=== PATIENT | male | born 1950 | race Caucasian/White ===

== ENCOUNTER 2020-12-30 10:24 | Inpatient (IN) ==
[2020-12-30] MEDS ORDERED: SODIUM CHLORIDE 0.9% 1000ML 1,000 ML IV ONE (10:45)
[2020-12-30] MEDS ORDERED: ACETAMINOPHEN 1,000 MG/100 ML VIAL IV STA (10:45)
[2020-12-30 11:06] LABS: Basophils # (auto) 0.01 K/uL (0-0.2); Basophils % (auto) 0.1 %; Hematocrit (blood only) 47.2 % (42-52); Hemoglobin 15.9 g/dL (14.0-18.0); Immature Granulocytes # (auto) 0.02 K/uL (0.00-0.02); Immature Granulocytes % (auto) 0.3 %; Lymphocytes # (auto) 0.29 K/uL (1.2-3.4); Mean Corpuscular Hemoglobin 31.1 pg (25-34); Mean Corpuscular Hgb Conc 33.7 g/dL (32-36); Mean Corpuscular Volume 92.4 fL (80-100); Mean Platelet Volume 12.5 fL (7.4-10.4); Monocytes # (auto) 0.09 K/uL (0.11-0.59); Monocytes % (auto) 1.2 %; Neutrophils # (auto) 6.89 K/uL (1.4-6.5); Neutrophils % (auto) 94.4 %; Platelet Count 135 K/uL (130-400); RDW Coefficient of Variation 13.4 % (11.5-14.5); RDW Standard Deviation 45.5 fL (36.4-46.3); Red Blood Count 5.11 M/uL (4.7-6.1)
[2020-12-30] MEDS ORDERED: OPTIRAY 320 100ml IV ONE (11:11)
[2020-12-30 11:16] LABS: INR 1.1 (0.9-1.1); Partial Thromboplastin Ratio 0.8; Partial Thromboplastin Time 20.9 Seconds (21.0-31.0); Prothrombin Time 10.7 Seconds (9.0-12.0)
--- NOTE | 2020-12-30 11:18 | XRay Report ---
XR chest 1V portable HISTORY: 70 years-old Male SEPSIS acute sepsis COMPARISON: None TECHNIQUE: AP view of the chest FINDINGS: Cardiac silhouette is enlarged. Mild linear right lung base subsegmental opacities. No pneumothorax, pleural effusion or overt pulmonary edema. Degenerative changes of the shoulders and spine. IMPRESSION: Mild linear right lung base opacities favor atelectasis. ACT 112: Negative or not required by law. The above report was generated using voice recognition software. It may contain grammatical, syntax o r spelling errors. Electronically signed by: Rickey Bear M.D. 12/30/2020 11:17 AM
[2020-12-30] MEDS ORDERED: ONDANSETRON INJ 2 MG/ML 2 ML VIAL IV STA (11:20)
[2020-12-30 11:31] LABS: Alanine Aminotransferase 429 U/L (12-78); Albumin Level 3.6 gm/dl (3.4-5.0); Aspartate Aminotransferase 549 U/L (15-37); BUN Creatinine Ratio 11.1 (10-20); Blood Urea Nitrogen 13 mg/dl (7-18); Calcium 8.9 mg/dl (8.5-10.1); Carbon Dioxide 22 mmol/L (21-32); Chloride 110 mmol/L (98-107); Est GFR (African American) 69.6 ml/min; Est GFR (Non-African American) 60.1 ml/min; Glucose 115 mg/dl (70-99); Lipase 171 U/L (73-393); Magnesium 1.6 mg/dl (1.8-2.4); Potassium 3.9 mmol/L (3.5-5.1); Sodium 140 mmol/L (136-145)
[2020-12-30 11:36] LABS: Albumin Globulin Ratio 0.9 (0.9-2); Alkaline Phosphatase 104 U/L (45-117); Bilirubin,Total 1.7 mg/dl (0.2-1); Globulin 3.9 gm/dl (2.5-4.0); Total Protein 7.5 gm/dl (6.4-8.2); Troponin I < 0.015 ng/ml (0-0.045)
[2020-12-30 11:40] LABS: Appearance Urine Clear (Clear); Bilirubin Urine Negative (Negative); Blood Urine Negative (Negative); Color Urine Dark Yellow; Glucose Urine UA Negative (Negative); Ketones Urine Trace (Negative); Leukocyte Esterase Urine Negative (Negative); Nitrite Urine Negative (Negative); Protein Urine Negative (Negative); Specific Gravity Urine 1.019 (1.000-1.030); Urobilinogen Urine Negative (Negative); pH Urine 5.5 (4.5-7.5)
--- NOTE | 2020-12-30 12:18 | Emergency Department Note ---
History of Present Illness General Chief complaint: Illness Stated complaint: FEELING COLD,UPPER ABD PAIN,SOB Time Seen by Provider: 12/30/20 10:39 History of Present Illness Provider complaint: Chills abdominal pain nausea Onset (ago): hour(s) 6 Location: abdomen Radiation: non-radiation Severity: moderate Current Pain Intensity: 0 Quality: + aching Relieved By: + other (Vomiting) Exacerbated By: + none Associated symptoms: + fever/chills, + nausea/vomiting and + shortness of breath; no chest pain, no cough, no headaches and no weakness 70-year-old male presents emergency department for abdominal pain chills nausea. Patient reports his symptoms began at 4:00 this morning woke him up from bed. He states he felt feverish and had chills. He reports he felt nauseous. Patient reports he came to the emergency department and vomited which made his symptoms better. Patient thinks his symptoms might of occurred because he ate some beans soup yesterday which might of caused his symptoms. He denies any surgical history in his abdomen. Patient is vaccinated gets COVID-19. Home Medications Medication Instructions Recorded Confirmed Type apixaban [Eliquis] 5 mg PO BID 12/30/20 12/30/20 History docusate sodium [Colace] 100 mg PO BID PRN 12/30/20 12/30/20 History gabapentin [Neurontin] 300 - 600 mg PO HS PRN 12/30/20 12/30/20 History lisinopril [Zestril] 10 mg PO QAM 12/30/20 12/30/20 History simvastatin [Zocor] 20 mg PO HS 12/30/20 12/30/20 History tamsulosin [Flomax] 0.8 mg PO HS 12/30/20 12/30/20 History Allergies Allergy/AdvReac Type Severity Reaction Status Date / Time No Known Allergies Allergy Unverified 12/30/20 12:37 Past Med/Surg History Medical History (Updated 12/30/20 @ 15:42 by Adrian Padilla) BPH (benign prostatic hyperplasia) GERD (gastroesophageal reflux disease) History of DVT (deep vein thrombosis) HLD (hyperlipidemia) HTN (hypertension) Incomplete right bundle branch block Stroke Surgical History History of colonoscopy 2017-diverticulosis Family History Mother Cancer stomach Sister Cancer stomach Father Stroke Social History Smoking Status: Former smoker Hx Alcohol Use: No Hx Substance Use: No Feels Safe at Home: Yes Review of Systems A total of 10 systems reviewed and were otherwise negative Physical Exam Vital Signs Vital Signs - 24 hr 12/30/20 10:28 12/30/20 10:44 12/30/20 11:14 Temperature 38.8 C H Temperature Source Temporal Artery Scan Pulse Rate 136 H Pulse Rate [Left Finger] Pulse Rate from SpO2 Sensor Respiratory Rate 18 Respiratory Effort / Characteristics Non-Labored Non-Labored Spontaneous Non-Labored Spontaneous Respiratory Depth Normal Blood Pressure 121/74 Blood Pressure [Left Arm] Blood Pressure Mean 89 Blood Pressure Mean [Left Arm] Pulse Oximetry 90 92 91 Oxygen Delivery Method Room Air Room Air Room Air Sepsis Recent Fever Within 48 Hours Yes Sepsis New/Unexplained Change in Mental Status No Sepsis Action Taken by Nursing No Action Required 12/30/20 11:30 12/30/20 11:44 12/30/20 12:14 Temperature Temperature Source Pulse Rate 109 H Pulse Rate [Left Finger] Pulse Rate from SpO2 Sensor 109 H Respiratory Rate 23 Respiratory Effort / Characteristics Non-Labored Spontaneous Non-Labored Spontaneous Respiratory Depth Blood Pressure 135/82 Blood Pressure [Left Arm] Blood Pressure Mean 99 Blood Pressure Mean [Left Arm] Pulse Oximetry 92 91 91 Oxygen Delivery Method Room Air Room Air Sepsis Recent Fever Within 48 Hours Sepsis New/Unexplained Change in Mental Status Sepsis Action Taken by Nursing 12/30/20 12:23 12/30/20 12:30 12/30/20 13:00 Temperature 38.1 C H Temperature Source Oral Pulse Rate 107 H 109 H Pulse Rate [Left Finger] Pulse Rate from SpO2 Sensor 107 H 109 H Respiratory Rate 23 20 Respiratory Effort / Characteristics Respiratory Depth Blood Pressure 103/65 Blood Pressure [Left Arm] Blood Pressure Mean 77 Blood Pressure Mean [Left Arm] Pulse Oximetry 90 90 Oxygen Delivery Method Sepsis Recent Fever Within 48 Hours Sepsis New/Unexplained Change in Mental Status Sepsis Action Taken by Nursing 12/30/20 13:44 12/30/20 14:00 12/30/20 14:49 Temperature Temperature Source Pulse Rate 106 H 107 H 105 H Pulse Rate [Left Finger] Pulse Rate from SpO2 Sensor 105 H 106 H 104 H Respiratory Rate 22 20 26 H Respiratory Effort / Characteristics Respiratory Depth Blood Pressure Blood Pressure [Left Arm] Blood Pressure Mean Blood Pressure Mean [Left Arm] Pulse Oximetry 93 92 92 Oxygen Delivery Method Sepsis Recent Fever Within 48 Hours Sepsis New/Unexplained Change in Mental Status Sepsis Action Taken by Nursing 12/30/20 15:00 12/30/20 15:23 Temperature Temperature Source Pulse Rate 101 H Pulse Rate [Left Finger] 103 H Pulse Rate from SpO2 Sensor 102 H Respiratory Rate 20 20 Respiratory Effort / Characteristics Respiratory Depth Blood Pressure Blood Pressure [Left Arm] 104/59 L Blood Pressure Mean Blood Pressure Mean [Left Arm] 74 Pulse Oximetry 93 90 Oxygen Delivery Method Room Air Sepsis Recent Fever Within 48 Hours Sepsis New/Unexplained Change in Mental Status Sepsis Action Taken by Nursing Physical Exam GENERAL: He is oriented to person, place, and time. He appears well-developed and well-nourished. He does not appear distressed. HENT: Exam performed. - Head: Normocephalic and atraumatic. - Right Ear: External ear normal. No mastoid tenderness. - Left Ear: External ear normal. No mastoid tenderness. - Mouth/Throat: The oropharynx is clear and moist. No trismus in the jaw. No dental abscesses or uvula swelling. No oropharyngeal exudate or tonsillar abscesses. EYES: Conjunctivae and EOM are normal. Pupils are equal, round, and reactive to light. Right eye exhibits no discharge. Left eye exhibits no discharge. No scleral icterus. NECK: Normal range of motion. Neck supple. No JVD present. No spinous process tenderness present. No carotid bruit present. No rigidity. No tracheal deviation and normal range of motion present. No Brudzinski's sign and no Kernig's sign noted. CV: Tachycardic rate, regular rhythm, normal heart sounds and intact distal pulses. There is no peripheral edema. Palpable radial pulses bue. PULM/CHEST: Effort normal and breath sounds normal. No respiratory distress. No stridor. He has no wheezes. He has no rales. - Chest Wall: He exhibits no tenderness. ABD: The abdomen is soft. Bowel sounds are normal. He has mild distension. No mass is present. There is diffuse tenderness to palpation of the abdomen. There is no rebound, no guarding, no Krishna's sign and no tenderness at McBurney's point. Rovsig negative. MUSC/SKEL: Normal range of motion. There is no peripheral edema, tenderness or deformity. LYMPH: No cervical adenopathy. NEURO: He is alert and oriented to person, place, and time. He has normal strength. No cranial nerve deficit or sensory deficit. Coordination and gait normal. GCS eye subscore is 4. GCS verbal subscore is 5. GCS motor subscore is 6. Cerebellar tests wnl. SKIN: Skin is warm and dry. He is not diaphoretic. PSYCH: He has a normal mood and affect. Behavior is normal. Judgment and thought content normal. Course Course 1039: The patient was evaluated in room A2. A complete history and physical exam was performed Cardiac monitoring: An order was placed for continuous cardiac monitoring. The monitor shows a rate of 130 with sinus tachycardia rhythm Patient is febrile and tachycardic. Code sepsis called. IV fluid bolus initiated. Tylenol IV ordered. 1241: Vital signs improved, patient is still tachycardic. Patient's CT of the abdomen shows a 2.5 cm intraluminal filling defect in the gallbladder neck suggestive cholelithiasis. No CT evidence for cholecystitis. Labs show normal white blood cell count but lactic acid is 3.9. Procalcitonin elevated 1.43. Liver function tests are also elevated. Will obtain ultrasound of the gallbladder to rule out cholecystitis. Rocephin and Flagyl ordered for the patient 1354: Ultrasound of the gallbladder showed distention with cholelithiasis but no sonographic evidence of cholecystitis. Given the patient's fever, elevated bilirubin level, and abdominal pain that was concerned the patient might have a developing ascending cholangitis. Discussed case with general surgery Bill PAC on-call [facility] Dr. Nguyen who agrees to be on consult and we will plan on admitt ing the patient to the medicine service. Discussed with Wendie Cordero hospitalist STEPHANIE who asked that I speak with gastroenterology about the patient also. 1421: Spoke with Dr. Renetta PICKENS who agrees to be on consult and states that the patient should have an MRCP done. He states Flagyl and Rocephin are appropriate antibiotics at this time but moving forward to switch patient to Zosyn. Wendie siegel to admit to Dr. Asif 1530: Repeat lactic acid 1.7. Administered Medications Discontinued Medications Acetaminophen (Ofirmev) 1,000 mg in 100 mls @ 400 mls/hr IV NOW STA Stop: 12/30/20 10:59 Last Infusion: 12/30/20 11:37 Dose: 0 mls/hr Documented by: [id number] Admin: 12/30/20 11:15 Dose: 400 mls/hr Documented by: [id number] Sodium Chloride (Nss 1000ml) 1,000 mls @ 999 mls/hr IV .Q1H1M ONE Stop: 12/30/20 11:45 Last Infusion: 12/30/20 12:15 Dose: 0 mls/hr Documented by: [id number] Admin: 12/30/20 10:45 Dose: 999 mls/hr Documented by: [id number] Ceftriaxone Sodium (Rocephin) 1,000 mg in 50 mls @ 100 mls/hr IV NOW STA Stop: 12/30/20 13:10 Last Infusion: 12/30/20 14:21 Dose: 0 mls/hr Documented by: [id number] Admin: 12/30/20 13:50 Dose: 100 mls/hr Documented by: [id number] Metronidazole (Flagyl) 500 mg in 100 mls @ 100 mls/hr IV NOW STA Stop: 12/30/20 13:40 Last Infusion: 12/30/20 15:11 Dose: 0 mls/hr Documented by: [id number] Admin: 12/30/20 13:55 Dose: 100 mls/hr Documented by: [id number] Ioversol (Optiray 320 100ml) 93 ml IV ONCE ONE Stop: 12/30/20 11:12 Last Admin: 12/30/20 11:12 Dose: 93 ml Documented by: [id number] Ondansetron HCl (Ondansetron Inj 2 Mg/Ml 2 Ml Vial) 4 mg IV NOW STA Stop: 12/30/20 11:21 Last Admin: 12/30/20 11:36 Dose: 4 mg Documented by: [id number] Critical Care Time Critical Care Time: Yes Total Critical Care Time: 76 I have personally spent greater than 76 minutes of critical care time in the direct management of this patient. This includes bedside care, interpretation of diagnostic studies, and testing, discussion with consultants, patient, and family members, and other required patient management activities. This 76 m inutes is in excess of all separately billable procedures. Medical Decision Making Laboratory Data Result diagrams: 12/30/20 10:55 12/30/20 10:55 Lab Results 12/30/20 12/30/20 12/30/20 Range/Units 10:55 10:55 10:55 WBC 7.30 (4.8-10.8) K/uL RBC 5.11 (4.7-6.1) M/uL Hgb 15.9 (14.0-18.0) g/dL Hct 47.2 (42-52) % MCV 92.4 (80-100) fL MCH 31.1 (25-34) pg MCHC 33.7 (32-36) g/dL RDW Std Deviation 45.5 (36.4-46.3) fL RDW Coeff of Meenakshi 13.4 (11.5-14.5) % Plt Count 135 (130-400) K/uL MPV 12.5 H (7.4-10.4) fL Immature Gran % (Auto) 0.3 % Neut % (Auto) 94.4 % Lymph % (Auto) 4.0 % [place] % (Auto) 1.2 % Eos % (Auto) 0.0 % Baso % (Auto) 0.1 % Neut # (Auto) 6.89 H (1.4-6.5) K/uL Lymph # (Auto) 0.29 L (1.2-3.4) K/uL [place] # (Auto) 0.09 L (0.11-0.59) K/uL Eos # (Auto) 0.00 (0-0.5) K/uL Baso # (Auto) 0.01 (0-0.2) K/uL Immature Gran # (Auto) 0.02 (0.00-0.02) K/uL PT 10.7 (9.0-12.0) Seconds INR 1.1 (0.9-1.1) APTT 20.9 L (21.0-31.0) Seconds PTT Ratio 0.8 Sodium 140 (136-145) mmol/L Potassium 3.9 (3.5-5.1) mmol/L Chloride 110 H (98-107) mmol/L Carbon Dioxide 22 (21-32) mmol/L Anion Gap 8.0 (3-11) BUN 13 (7-18) mg/dl Creatinine 1.20 (0.6-1.4) mg/dl Est Cr Clr Drug Dosing 58.0 ml/min Est GFR ( Amer) 69.6 ml/min Est GFR (Non-Af Amer) 60.1 ml/min BUN/Creatinine Ratio 11.1 (10-20) Glucose 115 H (70-99) mg/dl Lactate (0.4-2.0) mmol/L Calcium 8.9 (8.5-10.1) mg/dl Magnesium 1.6 L (1.8-2.4) mg/dl Total Bilirubin 1.7 H (0.2-1) mg/dl AST 549 H (15-37) U/L ALT 429 H (12-78) U/L Alkaline Phosphatase 104 (45-117) U/L Troponin I < 0.015 (0-0.045) ng/ml Total Protein 7.5 (6.4-8.2) gm/dl Albumin 3.6 (3.4-5.0) gm/dl Globulin 3.9 (2.5-4.0) gm/dl Albumin/Globulin Ratio 0.9 (0.9-2) Lipase 171 (73-393) U/L Procalcitonin (0-0.5) ng/ml Urine Color Urine Appearance (Clear) Urine pH (4.5-7.5) Ur Specific [place] (1.000-1.030) Urine Protein (Negative) Urine Glucose (UA) (Negative) Urine Ketones (Negative) Urine Blood (Negative) Urine Nitrite (Negative) Urine Bilirubin (Negative) Urine Urobilinogen (Negative) Ur Leukocyte Esterase (Negative) COVID-19 Eval Order SARS-CoV-2 (PCR) (Negative) Influ A Molecular Assay (Negative) Influ B Molecular Assay (Negative) 12/30/20 12/30/20 12/30/20 Range/Units 10:55 10:55 11:25 WBC (4.8-10.8) K/uL RBC (4.7-6.1) M/uL Hgb (14.0-18.0) g/dL Hct (42-52) % MCV (80-100) fL MCH (25-34) pg MCHC (32-36) g/dL RDW Std Deviation (36.4-46.3) fL RDW Coeff of Meenakshi (11.5-14.5) % Plt Count (130-400) K/uL MPV (7.4-10.4) fL Immature Gran % (Auto) % Neut % (Auto) % Lymph % (Auto) % [place] % (Auto) % Eos % (Auto) % Baso % (Auto) % Neut # (Auto) (1.4-6.5) K/uL Lymph # (Auto) (1.2-3.4) K/uL [place] # (Auto) (0.11-0.59) K/uL Eos # (Auto) (0-0.5) K/uL Baso # (Auto) (0-0.2) K/uL Immature Gran # (Auto) (0.00-0.02) K/uL PT (9.0-12.0) Seconds INR (0.9-1.1) APTT (21.0-31.0) Seconds PTT Ratio Sodium (136-145) mmol/L Potassium (3.5-5.1) mmol/L Chloride (98-107) mmol/L Carbon Dioxide (21-32) mmol/L Anion Gap (3-11) BUN (7-18) mg/dl Creatinine (0.6-1.4) mg/dl Est Cr Clr Drug Dosing ml/min Est GFR ( Amer) ml/min Est GFR (Non-Af Amer) ml/min BUN/Creatinine Ratio (10-20) Glucose (70-99) mg/dl Lactate 3.9 H* (0.4-2.0) mmol/L Calcium (8.5-10.1) mg/dl Magnesium (1.8-2.4) mg/dl Total Bilirubin (0.2-1) mg/dl AST (15-37) U/L ALT (12-78) U/L Alkaline Phosphatase (45-117) U/L Troponin I (0-0.045) ng/ml Total Protein (6.4-8.2) gm/dl Albumin (3.4-5.0) gm/dl Globulin (2.5-4.0) gm/dl Albumin/Globulin Ratio (0.9-2) Lipase (73-393) U/L Procalcitonin 1.43 H (0-0.5) ng/ml Urine Color Dark Yellow Urine Appearance Clear (Clear) Urine pH 5.5 (4.5-7.5) Ur Specific [place] 1.019 (1.000-1.030) Urine Protein Negative (Negative) Urine Glucose (UA) Negative (Negative) Urine Ketones Trace H (Negative) Urine Blood Negative (Negative) Urine Nitrite Negative (Negative) Urine Bilirubin Negative (Negative) Urine Urobilinogen Negative (Negative) Ur Leukocyte Esterase Negative (Negative) COVID-19 Eval Order SARS-CoV-2 (PCR) (Negative) Influ A Molecular Assay (Negative) Influ B Molecular Assay (Negative) 12/30/20 12/30/20 12/30/20 Range/Units 11:33 11:33 11:33 WBC (4.8-10.8) K/uL RBC (4.7-6.1) M/uL Hgb (14.0-18.0) g/dL Hct (42-52) % MCV (80-100) fL MCH (25-34) pg MCHC (32-36) g/dL RDW Std Deviation (36.4-46.3) fL RDW Coeff of Meenakshi (11.5-14.5) % Plt Count (130-400) K/uL MPV (7.4-10.4) fL Immature Gran % (Auto) % Neut % (Auto) % Lymph % (Auto) % [place] % (Auto) % Eos % (Auto) % Baso % (Auto) % Neut # (Auto) (1.4-6.5) K/uL Lymph # (Auto) (1.2-3.4) K/uL [place] # (Auto) (0.11-0.59) K/uL Eos # (Auto) (0-0.5) K/uL Baso # (Auto) (0-0.2) K/uL Immature Gran # (Auto) (0.00-0.02) K/uL PT (9.0-12.0) Seconds INR (0.9-1.1) APTT (21.0-31.0) Seconds PTT Ratio Sodium (136-145) mmol/L Potassium (3.5-5.1) mmol/L Chloride (98-107) mmol/L Carbon Dioxide (21-32) mmol/L Anion Gap (3-11) BUN (7-18) mg/dl Creatinine (0.6-1.4) mg/dl Est Cr Clr Drug Dosing ml/min Est GFR ( Amer) ml/min Est GFR (Non-Af Amer) ml/min BUN/Creatinine Ratio (10-20) Glucose (70-99) mg/dl Lactate (0.4-2.0) mmol/L Calcium (8.5-10.1) mg/dl Magnesium (1.8-2.4) mg/dl Total Bilirubin (0.2-1) mg/dl AST (15-37) U/L ALT (12-78) U/L Alkaline Phosphatase (45-117) U/L Troponin I (0-0.045) ng/ml Total Protein (6.4-8.2) gm/dl Albumin (3.4-5.0) gm/dl Globulin (2.5-4.0) gm/dl Albumin/Globulin Ratio (0.9-2) Lipase (73-393) U/L Procalcitonin (0-0.5) ng/ml Urine Color Urine Appearance (Clear) Urine pH (4.5-7.5) Ur Specific [place] (1.000-1.030) Urine Protein (Negative) Urine Glucose (UA) (Negative) Urine Ketones (Negative) Urine Blood (Negative) Urine Nitrite (Negative) Urine Bilirubin (Negative) Urine Urobilinogen (Negative) Ur Leukocyte Esterase (Negative) COVID-19 Eval Order Covid19 at [facility] SARS-CoV-2 (PCR) NEGATIVE (Negative) Influ A Molecular Assay Negative (Negative) Influ B Molecular Assay Negative (Negative) 12/30/20 Range/Units 14:04 WBC (4.8-10.8) K/uL RBC (4.7-6.1) M/uL Hgb (14.0-18.0) g/dL Hct (42-52) % MCV (80-100) fL MCH (25-34) pg MCHC (32-36) g/dL RDW Std Deviation (36.4-46.3) fL RDW Coeff of Meenakshi (11.5-14.5) % Plt Count (130-400) K/uL MPV (7.4-10.4) fL Immature Gran % (Auto) % Neut % (Auto) % Lymph % (Auto) % [place] % (Auto) % Eos % (Auto) % Baso % (Auto) % Neut # (Auto) (1.4-6.5) K/uL Lymph # (Auto) (1.2-3.4) K/uL [place] # (Auto) (0.11-0.59) K/uL Eos # (Auto) (0-0.5) K/uL Baso # (Auto) (0-0.2) K/uL Immature Gran # (Auto) (0.00-0.02) K/uL PT (9.0-12.0) Seconds INR (0.9-1.1) APTT (21.0-31.0) Seconds PTT Ratio Sodium (136-145) mmol/L Potassium (3.5-5.1) mmol/L Chloride (98-107) mmol/L Carbon Dioxide (21-32) mmol/L Anion Gap (3-11) BUN (7-18) mg/dl Creatinine (0.6-1.4) mg/dl Est Cr Clr Drug Dosing ml/min Est GFR ( Amer) ml/min Est GFR (Non-Af Amer) ml/min BUN/Creatinine Ratio (10-20) Glucose (70-99) mg/dl Lactate 1.7 (0.4-2.0) mmol/L Calcium (8.5-10.1) mg/dl Magnesium (1.8-2.4) mg/dl Total Bilirubin (0.2-1) mg/dl AST (15-37) U/L ALT (12-78) U/L Alkaline Phosphatase (45-117) U/L Troponin I (0-0.045) ng/ml Total Protein (6.4-8.2) gm/dl Albumin (3.4-5.0) gm/dl Globulin (2.5-4.0) gm/dl Albumin/Globulin Ratio (0.9-2) Lipase (73-393) U/L Procalcitonin (0-0.5) ng/ml Urine Color Urine Appearance (Clear) Urine pH (4.5-7.5) Ur Specific [place] (1.000-1.030) Urine Protein (Negative) Urine Glucose (UA) (Negative) Urine Ketones (Negative) Urine Blood (Negative) Urine Nitrite (Negative) Urine Bilirubin (Negative) Urine Urobilinogen (Negative) Ur Leukocyte Esterase (Negative) COVID-19 Eval Order SARS-CoV-2 (PCR) (Negative) Influ A Molecular Assay (Negative) Influ B Molecular Assay (Negative) Imaging Data Radiologist's Impression: Abdomen/Pelvis CT 12/30/20 10:[address] WITH IV CONTRAST CT DOSE: 421.02 mGy.cm HISTORY: Acute fever with generalized abdominal pain fever tahcycardia abd pain TECHNIQUE: Multiaxial CT images of the abdomen and pelvis were performed following the IV administration of 93 cc of Optiray, A dose lowering technique was utilized adhering to the principles of ALARA. COMPARISON STUDY: Chest radiograph of same day FINDINGS: Coronary artery calcifications. Mild right hemidiaphragmatic elevation with linear atelectasis/scarring. No pneumatosis or pneumoperitoneum. The spleen, pancreas and adrenal glands are unremarkable. There is a soft tissue density intraluminal filling defects within the gallbladder neck measuring 2.[address] evidence of acute cholecystitis. No biliary ductal dilation identified. Hepatic steatosis. Patency of the hepatic and portal veins. Mild nonspecific bilateral perinephric stranding. 6 mm cyst of the superior pole left kidney. There are 2 subadjacent calculi of the interpolar left kidney measuring up to 3 mm. No ureteral calculi or hydronephrosis. Prostamegaly. Mild urinary bladder distention. Atherosclerosis of the aorta without aneurysm. No adenopathy. Hyperdense material noted within the stomach and right lower quadrant small bow el. Colonic diverticulosis. Noninflamed appendix. No ascites or mesenteric inflammation. Unremarkable soft tissues. No acute fracture. IMPRESSION: 1. No bowel obstruction or bowel wall thickening. Normal appendix. 2. 2.5 cm intraluminal filling defect within the gallbladder neck is suggestive of cholelithiasis versus tumefactive sludge. No CT evidence of acute cholecystitis. Findings could be correlated with ultrasound if of further clinical concern. 3. Nonobstructing left nephrolithiasis 4. Mild colonic diverticulosis. 5. Hepatic steatosis. ACT 112: Negative or not required by law. The above report was generated using voice recognition software. It may contain grammatical, syntax or spelling errors. Electronically signed by: Rickey Bear M.D. 12/30/2020 12:37 PM Chest X-Ray 12/30/20 10:44 XR chest 1V portable HISTORY: 70 years-old Male SEPSIS acute sepsis COMPARISON: None TECHNIQUE: AP view of the chest FINDINGS: Cardiac silhouette is enlarged. Mild linear right lung base subsegmental opacities. No pneumothorax, pleural effusion or overt pulmonary edema. Degenerative changes of the shoulders and spine. IMPRESSION: Mild linear right lung base opacities favor atelectasis. ACT 112: Negative or not required by law. The above report was generated using voice recognition software. It may contain grammatical, syntax or spelling errors. Electronically signed by: Rickey Bear M.D. 12/30/2020 11:17 AM Gallbladder Ultrasound 12/30/20 12:41 US gallbladder HISTORY: 70 years-old Male ro cheolecystitis acute right upper quadrant abdominal pain COMPARISON: CT abdomen and pelvis of same day TECHNIQUE: Multiple real-time sonographic images of the abdominal right upper quadrant were obtained assessing grayscale appearance and color flow FINDINGS: The pancreas is suboptimally visualized secondary to patient body habitus and obscuring bowel gas. Increased echogenicity of the hepatic parenchyma. No marginal nodularity or hepatic mass identified. There is a shadowing 3 cm echogenic filling defects within the gallbladder lumen. Mild gallbladder distention. The gallbladder wall is normal measuring 2 mm. No pericholecystic fluid. The sonographic Krishna sign was reported as negative. Normal common bile duct measures 2 mm. Imaged right kidney is unremarkable without hydronephrosis IMPRESSION: 1. Mild gallbladder distention with cholelithiasis. No sonographic evidence of acute cholecystitis 2. No biliary ductal dilation. 3. Hepatic steatosis. ACT 112: Negative or not required by law. The above report was generated using voice recognition software. It may contain grammatical, syntax or spelling errors. Electronically signed by: Rickey Bear M.D. 12/30/2020 1:45 PM ECG Data Indication: + abdominal pain Rate (beats per minute): 110 Rhythm: + sinus tachycardia ECG Intervals/blocks: + Normal QRS, + Normal OH and + Normal QT-c ECG ST segments: + Normal ST segments MDM Narrative 1039: The patient was evaluated in room A2. A complete history and physical exam was performed Cardiac monitoring: An order was placed for continuous cardiac monitoring. The monitor shows a rate of 130 with sinus tachycardia rhythm Patient is febrile and tachycardic. Code sepsis called. IV fluid bolus initiated. Tylenol IV ordered. 1241: Vital signs improved, patient is still tachycardic. Patient's CT of the abdomen shows a 2.5 cm intraluminal filling defect in the gallbladder neck suggestive cholelithiasis. No CT evidence for cholecystitis. Labs show normal white blood cell count but lactic acid is 3.9. Procalcitonin elevated 1.43. Liver function tests are also elevated. Will obtain ultrasound of the gallbladder to rule out cholecystitis. Rocephin and Flagyl ordered for the patient 1354: Ultrasound of the gallbladder showed distention with cholelithiasis but no sonographic evidence of cholecystitis. Given the patient's fever, elevated bilirubin level, and abdominal pain that was concerned the patient might have a developing ascending cholangitis. Discussed case with general surgery Bill PAC on-call wt Dr. Nguyen who agrees to be on consult and we will plan on admitting the patient to the medicine service. Discussed with Wendie Cordero hospitalist STEPHANIE who asked that I speak with gastroenterology about the patient also. 1421: Spoke with Dr. Renetta PICKENS who agrees to be on consult and states that the patient should have an MRCP done. He states Flagyl and Rocephin are appropriate antibiotics at this time but moving forward to switch patient to Zosyn. Wendie states to admit to Dr. Asif 1530: Repeat lactic acid 1.7. Impression & Plan Ascending cholangitis Discharge Plan Visit Data Chief Complaint: Illness Stated Complaint: FEELING COLD,UPPER ABD PAIN,SOB ED Provider: Adrian Padilla Discharge Problem: Ascending cholangitis Patient Disposition: Admitted As Inpatient Discharge Instructions Interventions: ED Discharge Assessment Last Done: 12/30/20 15:35 Forms Stand Alone Forms: My [facility] [address] [employer] Prescriptions Prescriptions: No Action simvastatin [Zocor] 40 mg Tablet 20 mg PO HS RF: 0 tamsulosin [Flomax] 0.4 mg Capsule 0.8 mg PO HS RF: 0 lisinopril [Zestril] 10 mg Tablet 10 mg PO QAM RF: 0 docusate sodium [Colace] 100 mg Capsule 100 mg PO BID PRN (Reason: Constipation) RF: 0 gabapentin [Neurontin] 300 mg Capsule 300 - 600 mg PO HS PRN (Reason: Restless Leg(S)) RF: 0 Eliquis 5 mg Tablet 5 mg PO BID RF: 0 Referrals Referrals: Hilda Rebollar MD [Primary Care Provider] -
--- NOTE | 2020-12-30 12:38 | CT Scan Report ---
ABDOMEN AND PELVIS CT WITH IV CONTRAST CT DOSE: 421.02 mGy.cm HISTORY: Acute fever with generalized abdominal pain fever tahcycardia abd pain TECHNIQUE: Multiaxial CT images of the abdomen and pelvis were performed following the IV administrat ion of 93 cc of Optiray, A dose lowering technique was utilized adhering to the principles of ALARA. COMPARISON STUDY: Chest radiograph of same day FINDINGS: Coronary artery calcifications. Mild right hemidiaphragmatic elevation with linear atelectasis/scarri ng. No pneumatosis or pneumoperitoneum. The spleen, pancreas and adrenal glands are unremarkable. The re is a soft tissue density intraluminal filling defects within the gallbladder neck measuring 2.[address] evidence of acute cholecystitis. No biliary ductal dilation identified. Hepatic steatosis. Pa tency of the hepatic and portal veins. Mild nonspecific bilateral perinephric stranding. 6 mm cyst of the superior pole left kidney. There a re 2 subadjacent calculi of the interpolar left kidney measuring up to 3 mm. No ureteral calculi or h ydronephrosis. Prostamegaly. Mild urinary bladder distention. Atherosclerosis of the aorta without an eurysm. No adenopathy. Hyperdense material noted within the stomach and right lower quadrant small bowel. Colonic diverticul osis. Noninflamed appendix. No ascites or mesenteric inflammation. Unremarkable soft tissues. No acut e fracture. IMPRESSION: 1. No bowel obstruction or bowel wall thickening. Normal appendix. 2. 2.5 cm intraluminal filling defect within the gallbladder neck is suggestive of cholelithiasis peewee james tumefactive sludge. No CT evidence of acute cholecystitis. Findings could be correlated with ultr asound if of further clinical concern. 3. Nonobstructing left nephrolithiasis 4. Mild colonic diverticulosis. 5. Hepatic steatosis. ACT 112: Negative or not required by law. The above report was generated using voice recognition software. It may contain grammatical, syntax o r spelling errors. Electronically signed by: Rickey Bear M.D. 12/30/2020 12:37 PM
[2020-12-30] MEDS ORDERED: cefTRIAXone SODIUM 1,000 MG/50 ML BAG IV STA (12:41)
[2020-12-30] MEDS ORDERED: metroNIDAZOLE 500 MG/100 ML BAG IV STA (12:41)
[2020-12-30 13:39] LABS: Influenza A virus by PCR Negative (Negative); Influenza B virus by PCR Negative (Negative)
--- NOTE | 2020-12-30 13:46 | Ultrasound Report ---
US gallbladder HISTORY: 70 years-old Male ro cheolecystitis acute right upper quadrant abdominal pain COMPARISON: CT abdomen and pelvis of same day TECHNIQUE: Multiple real-time sonographic images of the abdominal right upper quadrant were obtained assessing grayscale appearance and color flow FINDINGS: The pancreas is suboptimally visualized secondary to patient body habitus and obscuring bowel gas. In creased echogenicity of the hepatic parenchyma. No marginal nodularity or hepatic mass identified. Th ere is a shadowing 3 cm echogenic filling defects within the gallbladder lumen. Mild gallbladder dist ention. The gallbladder wall is normal measuring 2 mm. No pericholecystic fluid. The sonographic Murp hy sign was reported as negative. Normal common bile duct measures 2 mm. Imaged right kidney is unremarkable without hydronephrosis IMPRESSION: 1. Mild gallbladder distention with cholelithiasis. No sonographic evidence of acute cholecystitis 2. No biliary ductal dilation. 3. Hepatic steatosis. ACT 112: Negative or not required by law. The above report was generated using voice recognition software. It may contain grammatical, syntax o r spelling errors. Electronically signed by: Rickey Bear M.D. 12/30/2020 1:45 PM
--- NOTE | 2020-12-30 14:36 | Surgery Consultation ---
Date of Consultation December 30, 2020 Assessment & Plan (1) Cholelithiasis: Has cholelithiasis with possible stone in gallbladder neck but no evidence of acute cholecystitis by CT or US. LFTs suggest biliary obstruction although not seen on any imaging so far (?[facility]). Would need to hold Eliquis for 2-3 days prior to cholecystectomy, continue IV abx and await GI consult. Supervising Physician Co-Signing Physician Notes I personally saw and evaluated the patient with Yousuf Berman PA-C and agree with the assessment and plan. 70 yo with obstructive jaundice, likely due to gallstones -No signs of cholecystitis on imaging -Await GI input about possible ERCP -Will plan on cholecystectomy after Eliquis held for 2-3 days, tentatively Thursday -Will follow History of Present Illness History of Present Illness 70 y/o male woke up this morning with abdominal pain, bloating, and chills. No history of abdominal pain, nausea or surgery. Had weeks soup for dinner. Fell back asleep for awhile but then came to the ED for continued symptoms. Allergies Allergy/AdvReac Type Severity Reaction Status Date / Time No Known Allergies Allergy Unverified 12/30/20 12:37 Home Medications Medication Instructions Recorded Confirmed Type apixaban [Eliquis] 5 mg PO BID 12/30/20 12/30/20 History docusate sodium [Colace] 100 mg PO BID PRN 12/30/20 12/30/20 History gabapentin [Neurontin] 300 - 600 mg PO HS PRN 12/30/20 12/30/20 History lisinopril [Zestril] 10 mg PO QAM 12/30/20 12/30/20 History simvastatin [Zocor] 20 mg PO HS 12/30/20 12/30/20 History tamsulosin [Flomax] 0.8 mg PO HS 12/30/20 12/30/20 History Patient History Medical History (Updated 12/30/20 @ 16:07 by Bessie Evans PA-C) BPH (benign prostatic hyperplasia) GERD (gastroesophageal reflux disease) History of DVT (deep vein thrombosis) HLD (hyperlipidemia) HTN (hypertension) Incomplete right bundle branch block Stroke Surgical History History of colonoscopy 2017-diverticulosis Family History Mother Cancer stomach Sister Cancer stomach Father Stroke Social History Smoking Status: Former smoker Hx Alcohol Use: No Hx Substance Use: No Preferred Language: Uzbek Communication Ability: Effective 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 Beliefs That Will Affect Care: None Current Living Situation: Family Other Information That Helps Us Care for You: No Feels Safe at Home: Yes Safety Concerns: Feels Safe At This Time Assistive Devices: None Review of Systems Constitutional: + fever and + chills Respiratory: + dyspnea Gastrointestinal: + abdominal pain, + bloating (always feels bloated), + nausea and + vomiting Physical Exam Constitutional: WD/WN, vitals as above Respiratory: normal respiratory effort Cardiovascular: Rate/Rhythm: + tachycardic Gastrointestinal (Abdomen): Inspection/Auscultation: + abdomen distended (slightly) Percussion/Palpation: + abdomen tender (mild generalized) and abdomen soft Skin: no rashes, warm and dry Results & Data ([facility]) Vital Signs (Past 12 Hours) Vital Signs Temp Pulse Resp BP Pulse Ox 12/30/20 12:23 38.1 C H 12/30/20 12:14 91 12/30/20 11:44 91 12/30/20 11:30 109 H 23 135/82 92 12/30/20 11:14 91 12/30/20 10:44 92 12/30/20 10:28 38.8 C H 136 H 18 121/74 90 PG Care Time/CCT Total # of Minutes Spent Total Time Spent with Patient: Total time spent is greater than 50% in coordination of care (as documented) at patient's floor/unit and/or counseling patient: Coding Level of Care Code 31874 Initial Inpt Care Lvl 3 Diagnoses Cholelithiasis K80.20
--- NOTE | 2020-12-30 14:43 | History & Physical Report ---
Date of Service December 30, 2020 Assessment & Plan (1) Cholangitis: (2) Cholelithiasis: Patient is 70-year-old male with PMH HTN, HLD, GERD, stroke, BPH, h/o DVT and is on Eliquis presented to ER with c/o abdominal pain, chills, sweats this morning. Vomited x1 in ER. Denies diarrhea In ER T: 38.8C, P: 136, R: 18, BP: 121/74, 90% on room air. No leukocytosis, Lactic acid: 3.9, procalcitonin: 1.4, T bili: 1.7, AST: 549, ALT: 429, alk phos: 104 CT ABDOMEN/PELVIS: 1. No bowel obstruction or bowel wall thickening. Normal appendix. 2. 2.5 cm intraluminal filling defect within the gallbladder neck is suggestive of cholelithiasis versus tumefactive sludge. No CT evidence of acute cholecy stitis. Findings could be correlated with ultrasound if of further clinical concern. 3. Nonobstructing left nephrolithiasis 4. Mild colonic diverticulosis. 5. Hepatic steatosis. GALLBLADDER ULTRASOUND: 1. Mild gallbladder distention with cholelithiasis. No sonographic evidence of acute cholecystitis 2. No biliary ductal dilation. 3. Hepatic steatosis. CXR: Mild linear right lung base opacities favor atelectasis. Was given 1 L NSS, 1 g Rocephin, Flagyl 500 mg IV, Zofran, 1 g Tylenol IV. Patient being admitted for further treatment and evaluation -Repeat lactic acid 1.7 -Blood cultures pending -IVF -Zosyn -Clear liquid diet, NPO midnight -MRCP -GI consult, ER physician spoke to Dr. Jackson who recommended MRCP and Zosyn -General surgery consult -CBC, CMP, liver labs in a.m. (3) Hypomagnesemia: Magnesium: 1.6 -replace and monitor (4) HTN (hypertension): -Hold lisinopril (5) HLD (hyperlipidemia): -hold statin for now (6) History of DVT (deep vein thrombosis): Patient reports history of lower extremity DVT and PE many years ago and has been on anticoagulants since. Patient is unsure if it was provoked or unprovoked DVT On Eliquis -Hold Eliquis in case of procedure (7) BPH (benign prostatic hyperplasia): -continue tamsulosin (8) Stroke: Some residual right sided weakness DVT Prophylaxis -Heparin SQ Full Code as per discussion with pt Follows with Dr Orosco for routine care Pt was seen and care coordinated with Dr Asif. See addendum History of Present Illness Chief Complaint: abdominal pain Primary Care Provider: Hilda Spivey MD Patient is 70-year-old male with PMH HTN, HLD, GERD, stroke, BPH, h/o DVT/PE and is on Eliquis presented to ER with c/o abdominal pain this morning. Patient states this morning woke up and had chills, sweats. Then he noted aching pain across his abdomen and presented to ER. In ER patient reports vomiting x1. Denies diarrhea. Denies hematemesis, melena, hematochezia, LYNN, dizziness, syncope, vision changes, neck pain, CP, SOB, orthopnea, palpitations, cough, sore throat, choking, otalgia, rhinorrhea, paresthesias, weakness, extremity weakness, extremity edema, rashes, urinary symptoms. In ER patient found to be febrile at 38.8C, P: 136, R: 18, BP: 121/74, 90% on room air. In ER no leukocytosis, found to have elevated lactate, elevated procalcitonin, elevated T bili and liver functions. Ultrasound gallbladder:Mild gallbladder distention with cholelithiasis. No sonographic evidence of acute cholecystitis and no biliary ductal dilation. Was given 1 L NSS, 1 g Rocephin, Flagyl 500 mg IV, Zofran, 1 g Tylenol IV. Patient being admitted for further treatment and evaluation Allergies Allergy/AdvReac Type Severity Reaction Status Date / Time No Known Allergies Allergy Unverified 12/30/20 12:37 Home Medications Medication Instructions Recorded Confirmed Type apixaban [Eliquis] 5 mg PO BID 12/30/20 12/30/20 History docusate sodium [Colace] 100 mg PO BID PRN 12/30/20 12/30/20 History gabapentin [Neurontin] 300 - 600 mg PO HS PRN 12/30/20 12/30/20 History lisinopril [Zestril] 10 mg PO QAM 12/30/20 12/30/20 History simvastatin [Zocor] 20 mg PO HS 12/30/20 12/30/20 History tamsulosin [Flomax] 0.8 mg PO HS 12/30/20 12/30/20 History Past Med/Surg History Medical History (Updated 12/30/20 @ 16:07 by Bessie Evans PA-C) BPH (benign prostatic hyperplasia) GERD (gastroesophageal reflux disease) History of DVT (deep vein thrombosis) HLD (hyperlipidemia) HTN (hypertension) Incomplete right bundle branch block Stroke Surgical History History of colonoscopy 2017-diverticulosis Family History Mother Cancer stomach Sister Cancer stomach Father Stroke Social History Smoking Status: Former smoker Hx Alcohol Use: No Hx Substance Use: No Preferred Language: British Communication Ability: Effective 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 Beliefs That Will Affect Care: None Current Living Situation: Family Other Information That Helps Us Care for You: No Feels Safe at Home: Yes Safety Concerns: Feels Safe At This Time Assistive Devices: None and Glasses Review of Systems Review of Systems: All systems reviewed & are unremarkable except as noted in HPI & below Physical Exam Physical Exam: General: no distress, obese Head: normocephalic, atraumatic Eyes: PERRL, EOM's intact, conjunctiva non-injected, anicteric ENT: normal inspection external ears, nose, mucous membranes mildly dry Neck: supple, trachea midline Lungs: clear, no respiratory distress, no wheezing/rhonchi/rales CV: tachycardia, rate 108, regular rhythm, no pretibial edema Abd: protuberant, normal BS, soft, + numbness to palpation RUQ, RLQ, LLQ without rebound or guarding Ext: no cyanosis, no erythema, no calf tenderness Neuro: A&O x 3, no focal deficits noted, normal affect Skin: Hot, dry Results & Data Results & Data ([facility]) Vital Signs (Past 12 Hours) Vital Signs Temp Pulse Resp BP Pulse Ox 12/30/20 12:23 38.1 C H 12/30/20 12:14 91 12/30/20 11:44 91 12/30/20 11:30 109 H 23 135/82 92 12/30/20 11:14 91 12/30/20 10:44 92 12/30/20 10:28 38.8 C H 136 H 18 121/74 90 Laboratory Results Short CBC 12/30/20 Range/Units 10:55 WBC 7.30 (4.8-10.8) K/uL Hgb 15.9 (14.0-18.0) g/dL Hct 47.2 (42-52) % Plt Count 135 (130-400) K/uL BMP 12/30/20 10:55 Sodium 140 Potassium 3.9 Chloride 110 H Carbon Dioxide 22 BUN 13 Creatinine 1.20 Glucose 115 H Calcium 8.9 Cardiac Enzymes 12/30/20 Range/Units 10:55 Troponin I < 0.015 (0-0.045) ng/ml Liver Function 12/30/20 Range/Units 10:55 Total Bilirubin 1.7 H (0.2-1) mg/dl AST 549 H (15-37) U/L ALT 429 H (12-78) U/L Alkaline Phosphatase 104 (45-117) U/L Albumin 3.6 (3.4-5.0) gm/dl Urine 12/30/20 Range/Units 11:25 Urine Color Dark Yellow Urine Appearance Clear (Clear) Urine pH 5.5 (4.5-7.5) Ur Specific [place] 1.019 (1.000-1.030) Urine Protein Negative (Negative) Urine Glucose (UA) Negative (Negative) Diagnostic Findings Abdomen/Pelvis CT 12/30/20 10:[address] WITH IV CONTRAST CT DOSE: 421.02 mGy.cm HISTORY: Acute fever with generalized abdominal pain fever tahcycardia abd pain TECHNIQUE: Multiaxial CT images of the abdomen and pelvis were performed following the IV administration of 93 cc of Optiray, A dose lowering technique was utilized adhering to the principles of ALARA. COMPARISON STUDY: Chest radiograph of same day FINDINGS: Coronary artery calcifications. Mild right hemidiaphragmatic elevation with linear atelectasis/scarring. No pneumatosis or pneumoperitoneum. The spleen, pancreas and adrenal glands are unremarkable. There is a soft tissue density intraluminal filling defects within the gallbladder neck measuring 2.[address] evidence of acute cholecystitis. No biliary ductal dilation identified. Hepatic steatosis. Patency of the hepatic and portal veins. Mild nonspecific bilateral perinephric stranding. 6 mm cyst of the superior pole left kidney. There are 2 subadjacent calculi of the interpolar left kidney measuring up to 3 mm. No ureteral calculi or hydronephrosis. Prostamegaly. Mild urinary bladder distention. Atherosclerosis of the aorta without aneurysm. No adenopathy. Hyperdense material noted within the stomach and right lower quadrant small bowel. Colonic diverticulosis. Noninflamed appendix. No ascites or mesenteric inflammation. Unremarkable soft tissues. No acute fracture. IMPRESSION: 1. No bowel obstruction or bowel wall thickening. Normal appendix. 2. 2.5 cm intraluminal filling defect within the gallbladder neck is suggestive of cholelithiasis versus tumefactive sludge. No CT evidence of acute cholecystitis. Findings could be correlated with ultrasound if of further clinical concern. 3. Nonobstructing left nephrolithiasis 4. Mild colonic diverticulosis. 5. Hepatic steatosis. ACT 112: Negative or not required by law. The above report was generated using voice recognition software. It may contain grammatical, syntax or spelling errors. Electronically signed by: Rickey Bear M.D. 12/30/2020 12:37 PM Chest X-Ray 12/30/20 10:44 XR chest 1V portable HISTORY: 70 years-old Male SEPSIS acute sepsis COMPARISON: None TECHNIQUE: AP view of the chest FINDINGS: Cardiac silhouette is enlarged. Mild linear right lung base subsegmental opacities. No pneumothorax, pleural effusion or overt pulmonary edema. Degenerative changes of the shoulders and spine. IMPRESSION: Mild linear right lung base opacities favor atelectasis. ACT 112: Negative or not required by law. The above report was generated using voice recognition software. It may contain grammatical, syntax or spelling errors. Electronically signed by: Rickey Bear M.D. 12/30/2020 11:17 AM Gallbladder Ultrasound 12/30/20 12:41 US gallbladder HISTORY: 70 years-old Male ro cheolecystitis acute right upper quadrant abdominal pain COMPARISON: CT abdomen and pelvis of same day TECHNIQUE: Multiple real-time sonographic images of the abdominal right upper quadrant were obtained assessing grayscale appearance and color flow FINDINGS: The pancreas is suboptimally visualized secondary to patient body habitus and obscuring bowel gas. Increased echogenicity of the hepatic parenchyma. No marginal nodularity or hepatic mass identified. There is a shadowing 3 cm echogenic filling defects within the gallbladder lumen. Mild gallbladder distention. The gallbladder wall is normal measuring 2 mm. No pericholecystic fluid. The sonographic Krishna sign was reported as negative. Normal common bile duct measures 2 mm. Imaged right kidney is unremarkable without hydronephrosis IMPRESSION: 1. Mild gallbladder distention with cholelithiasis. No sonographic evidence of acute cholecystitis 2. No biliary ductal dilation. 3. Hepatic steatosis. ACT 112: Negative or not required by law. The above report was generated using voice recognition software. It may contain grammatical, syntax or spelling errors. Electronically signed by: Rickey Bear M.D. 12/30/2020 1:45 PM ECG Rate (beats per minute): 110 Rhythm: sinus tachycardia Findings: + T-wave inversion (Anterolateral) Additional Comments: Incomplete right bundle branch block Code Status & VTE Plan VTE Prophylaxis Plan VTE Prophylaxis will be ordered: Yes Supervising Physician Co-Signing Physician Notes Attending addendum: The patient was seen and examined in telemetry unit He has been complaining of abdominal bloating for the last 2 months or so and came in with acute abdomen with fever and chills since last night He denies any chest pain or palpitation, any nausea no vomiting or any shortness of breath On examination Sitting at the edge of the bed with some anxiety and depression Noted to have a pulse of 102 and blood pressure 99/65 temperature of 38 C Chest-clear to auscultate bilaterally Heart-S1, S2 regular Abdomen-mildly distended, soft, mildly tender all over, bowel sound sluggish Extremities-negative for any edema WAREHOUSE HAND-alert, awake and oriented x3 Admission labs, EKG and imaging studies reviewed Has elevated liver enzymes with cholelithiasis but without any evidence of cholecystitis Likely has cholangitis given fever and tachycardia Started on intravenous Zosyn Surgery and GI have been consulted Agree with assessment and plan as outlined above by STEPHANIE Barnett Dr .
[2020-12-30] MEDS ORDERED: CONSULT PHARMACY STA (16:00)
[2020-12-30] MEDS ORDERED: MAGNESIUM SULFATE / D5W 1 GM/100 ML BAG IV ONE (16:00)
[2020-12-30] MEDS ORDERED: ONDANSETRON INJ 2 MG/ML 2 ML VIAL IV PRN (16:00)
[2020-12-30] MEDS ORDERED: PIPERACILL/TAZOBAC CONSULT ACTIVE PRN (16:00)
[2020-12-30] MEDS ORDERED: GABAPENTIN 300 MG CAP PO PRN (16:01)
[2020-12-30] MEDS ORDERED: HYDROmorphone INJ 0.5 MG/0.5 ML SYR IV PRN (16:01)
[2020-12-30] MEDS ORDERED: PIPERACILLIN/TAZOBACTAM 3.375 GM in DEXTROSE 5% 100 ML IV STA (16:02)
[2020-12-30] MEDS: SODIUM CHLORIDE 0.9% 1000ML 1,000 ML IV SCH (16:16)
--- NOTE | 2020-12-30 18:33 | Magnetic Resonance Report ---
MR MRCP HISTORY: 70 years-old Male cholangitis acute generalized abdominal pain with nausea COMPARISON: Abdominal ultrasound and CT abdomen and pelvis studies of same day TECHNIQUE: MRCP was obtained according to institutional protocol without the use of IV contrast. 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 Mild right hemidiaphragmatic elevation. Card iomegaly. Bibasilar atelectasis again noted. The spleen, pancreas and adrenal glands are unremarkable . No hepatic mass identified. No ascites. Unremarkable aorta and IVC. No adenopathy. Cholelithiasis w ith a 3.3 cm stone within the gallbladder lumen. No gallbladder wall thickening or pericholecystic fl uid. Tortuosity of the cystic duct. There is no intrahepatic or extrahepatic biliary ductal dilation. No filling defects within the biliary tree to suggest choledocholithiasis. There are a few T2 hyperi ntense cystic foci of the pancreas suggestive of probable sidebranch IPMN's measuring up to 5 mm. No pancreatic ductal dilation. No pancreatic divisum. Nonspecific mild bilateral perinephric stranding. There are 2 cysts of the superior pole left kidney measuring up to 7 mm. No bowel obstruction or bowel wall thickening. Unremarkable soft tissues. IMPRESSION: 1. Cholelithiasis without evidence of acute cholecystitis. 2. No biliary ductal dilation or choledocholithiasis. ACT 112: Negative or not required by law. The above report was generated using voice recognition software. It may contain grammatical, syntax o r spelling errors. Electronically signed by: Rickey Bear M.D. 12/30/2020 6:32 PM
[2020-12-30] MEDS: TAMSULOSIN HCL 0.4 MG CAP PO SCH (19:46)
[2020-12-30] MEDS: HEPARIN SOD 5,000 UNIT/0.5 ML VIAL SQ SCH (22:09)
[2020-12-30] MEDS: PIPERACILLIN/TAZOBACTAM 3.375 GM in DEXTROSE 5% 100 ML IV SCH (22:09)
[2020-12-31] MEDS: SODIUM CHLORIDE 0.9% 1000ML 1,000 ML IV SCH ×2 (01:19→09:39)
[2020-12-31] MEDS: HEPARIN SOD 5,000 UNIT/0.5 ML VIAL SQ SCH ×3 (06:20→21:52)
[2020-12-31] MEDS: PIPERACILLIN/TAZOBACTAM 3.375 GM in DEXTROSE 5% 100 ML IV SCH ×3 (06:20→21:52)
[2020-12-31 07:16] LABS: Basophils # (auto) 0.02 K/uL (0-0.2); Basophils % (auto) 0.1 %; Eosinophils # (auto) 0.05 K/uL (0-0.5); Eosinophils % (auto) 0.3 %; Hematocrit (blood only) 43.5 % (42-52); Hemoglobin 14.2 g/dL (14.0-18.0); Immature Granulocytes # (auto) 0.03 K/uL (0.00-0.02); Immature Granulocytes % (auto) 0.2 %; Lymphocytes # (auto) 0.53 K/uL (1.2-3.4); Lymphocytes % (auto) 3.6 %; Mean Corpuscular Hemoglobin 30.4 pg (25-34); Mean Corpuscular Hgb Conc 32.6 g/dL (32-36); Mean Corpuscular Volume 93.1 fL (80-100); Mean Platelet Volume 12.6 fL (7.4-10.4); Monocytes # (auto) 1.14 K/uL (0.11-0.59); Monocytes % (auto) 7.7 %; Neutrophils # (auto) 13.01 K/uL (1.4-6.5); Neutrophils % (auto) 88.1 %; Platelet Count 110 K/uL (130-400); Platelet Estimate Decreased (Normal); RDW Coefficient of Variation 13.9 % (11.5-14.5); RDW Standard Deviation 47.7 fL (36.4-46.3); Red Blood Count 4.67 M/uL (4.7-6.1); White Blood Count 14.78 K/uL (4.8-10.8)
[2020-12-31 07:40] LABS: Albumin Globulin Ratio 0.9 (0.9-2); Albumin Level 2.9 gm/dl (3.4-5.0); BUN Creatinine Ratio 12.7 (10-20); Bilirubin Direct 2.2 mg/dl (0-0.2); Bilirubin,Total 3.5 mg/dl (0.2-1); Calcium 7.9 mg/dl (8.5-10.1); Creatinine Clr Calc Pharmacy 62.6 ml/min; Est GFR (African American) 82.7 ml/min; Est GFR (Non-African American) 71.4 ml/min; Globulin 3.3 gm/dl (2.5-4.0); Magnesium 2.2 mg/dl (1.8-2.4); Potassium 4.2 mmol/L (3.5-5.1); Total Protein 6.2 gm/dl (6.4-8.2)
--- NOTE | 2020-12-31 09:31 | Gastrointestinal Consultation ---
Date of Consultation December 31, 2020 Assessment & Plan (1) Ascending cholangitis: 70 year old male on Eliquis admitted w/ pain, imaging w/ gallstones, evaluated by general surgery. Consuelo PICKENS asked to evaluate this AM by [facility] given rise in WBC and LFTs overnight concerning for cholangitis NPO Will discuss ERCP w/ attending and biliary staff Hold Eliquis Antiemetics PRN Analgesia PRN Please continue ABX w/ biliary coverage Thank you for allowing us to participate in the care of this patient. Please call with any acute changes, questions or concerns. Please see addendum below with additional recommendation from my supervising physician. Supervising Physician Co-Signing Physician Notes I have seen and examined the patient and discussed the management with ARSENIO Marinelli. 70 yo male with a history of htn, hl, history of dvt on eliquis (stopped yesterday), admitted with abd pain. PE alert and orietned, no scleral icterus, abd soft nt nd Imaging reviewed- 2.5 cm intraluminal filling defect in the gb neck TB bumped from1.7 to 3.5 today, DB 2.2, AST 549->226, ALT 429->320, WBC 14.78 GB mahesh and mrcp normal On zosyn. ERCP likely later today. History of Present Illness Reason for Consultation: ascending cholangitis, Consuelo made aware this AM by ARSENIO Vela Requesting Physician: Laya Attending Physician: Derick Asif MD History of Present Illness 70 year old male w/ history of HTN, dyslipidemia, GERD, stroke, DVT on Eliquis last dose yesterday morning admitted w/ abdominal pain, nightsweats, fevers. [facility] from [facility] concern for cholangitis. Pt was seen and evaluated, chart reviewed. Notes onset of abdominal pain yesterday. Persistent, severe upper abd pain. No associated nausea/vomiting. Was evaluated by general surgery. Gallstones on imaging w/o cholecystitis, no report of biliary dilation. Overnight ,WBC increased, worsening Tbili and fevers overnight. Was given 1 L NSS, 1 g Rocephin, Flagyl 500 mg IV, Zofran, 1 g Tylenol IV. MRCP: Cholelithiasis without evidence of acute cholecystitis. 2. No biliary ductal dilation or choledocholithiasis. ABD US: 1. Mild gallbladder distention with cholelithiasis. No sonographic evidence of acute cholecystitis 2. No biliary ductal dilation. 3. Hepatic steatosis. Allergies Allergy/AdvReac Type Severity Reaction Status Date / Time No Known Allergies Allergy Unverified 12/30/20 12:37 Home Medications Medication Instructions Recorded Confirmed Type apixaban [Eliquis] 5 mg PO BID 12/30/20 12/30/20 History docusate sodium [Colace] 100 mg PO BID PRN 12/30/20 12/30/20 History gabapentin [Neurontin] 300 - 600 mg PO HS PRN 12/30/20 12/30/20 History lisinopril [Zestril] 10 mg PO QAM 12/30/20 12/30/20 History simvastatin [Zocor] 20 mg PO HS 12/30/20 12/30/20 History tamsulosin [Flomax] 0.8 mg PO HS 12/30/20 12/30/20 History Patient History Medical History (Updated 12/30/20 @ 16:07 by Bessie Evans PA-C) BPH (benign prostatic hyperplasia) GERD (gastroesophageal reflux disease) History of DVT (deep vein thrombosis) HLD (hyperlipidemia) HTN (hypertension) Incomplete right bundle branch block Stroke Surgical History History of colonoscopy 2017-diverticulosis Family History Mother Cancer stomach Sister Cancer stomach Father Stroke Social History Smoking Status: Former smoker Hx Alcohol Use: No Hx Substance Use: No Preferred Language: Bulgarian Communication Ability: Effective Sand Cutter Required: No Beliefs That Will Affect Care: None Current Living Situation: Family Other Information That Helps Us Care for You: No Feels Safe at Home: Yes Safety Concerns: Feels Safe At This Time Assistive Devices: None Review of Systems Review of Systems: All systems reviewed & are unremarkable except as noted in HPI & below Physical Exam Constitutional: WD/WN, vitals as above Respiratory: normal respiratory effort, lungs clear to auscultation Cardiovascular: RRR, no murmur, no edema Gastrointestinal (Abdomen): normal bowel sounds, soft, nontender, no hepatosplenomegaly Skin: no rashes, warm and dry Results & Data ([facility]) Vital Signs (Past 12 Hours) Vital Signs Temp Pulse Resp BP Pulse Ox 12/31/20 08:09 36.8 C 58 L 18 128/75 95 12/31/20 04:05 37.4 C 68 20 116/74 92 12/31/20 01:21 37.2 C 12/30/20 23:55 37.6 C H 67 16 105/64 98 Laboratory Results 12/31/20 12/31/20 12/30/20 Range/Units 06:11 06:11 14:04 WBC 14.78 H (4.8-10.8) K/uL RBC 4.67 L (4.7-6.1) M/uL Hgb 14.2 (14.0-18.0) g/dL Hct 43.5 (42-52) % MCV 93.1 (80-100) fL MCH 30.4 (25-34) pg MCHC 32.6 (32-36) g/dL RDW Std Deviation 47.7 H (36.4-46.3) fL RDW Coeff of Meenakshi 13.9 (11.5-14.5) % Plt Count 110 L (130-400) K/uL MPV 12.6 H (7.4-10.4) fL Immature Gran % (Auto) 0.2 % Neut % (Auto) 88.1 % Lymph % (Auto) 3.6 % Waller % (Auto) 7.7 % Eos % (Auto) 0.3 % Baso % (Auto) 0.1 % Neut # (Auto) 13.01 H (1.4-6.5) K/uL Lymph # (Auto) 0.53 L (1.2-3.4) K/uL Waller # (Auto) 1.14 H (0.11-0.59) K/uL Eos # (Auto) 0.05 (0-0.5) K/uL Baso # (Auto) 0.02 (0-0.2) K/uL Immature Gran # (Auto) 0.03 H (0.00-0.02) K/uL Platelet Estimate Decreased L (Normal) PT (9.0-12.0) Seconds INR (0.9-1.1) APTT (21.0-31.0) Seconds PTT Ratio Sodium 140 (136-145) mmol/L Potassium 4.2 (3.5-5.1) mmol/L Chloride 111 H (98-107) mmol/L Carbon Dioxide 25 (21-32) mmol/L Anion Gap 4.0 (3-11) BUN 13 (7-18) mg/dl Creatinine 1.04 (0.6-1.4) mg/dl Est Cr Clr Drug Dosing 62.6 ml/min Est GFR ( Amer) 82.7 ml/min Est GFR (Non-Af Amer) 71.4 ml/min BUN/Creatinine Ratio 12.7 (10-20) Glucose 89 (70-99) mg/dl Lactate 1.7 (0.4-2.0) mmol/L Calcium 7.9 L (8.5-10.1) mg/dl Magnesium 2.2 (1.8-2.4) mg/dl Total Bilirubin 3.5 H D (0.2-1) mg/dl Direct Bilirubin 2.2 H (0-0.2) mg/dl AST 226 H (15-37) U/L ALT 320 H (12-78) U/L Alkaline Phosphatase 76 (45-117) U/L Troponin I (0-0.045) ng/ml Total Protein 6.2 L (6.4-8.2) gm/dl Albumin 2.9 L (3.4-5.0) gm/dl Globulin 3.3 (2.5-4.0) gm/dl Albumin/Globulin Ratio 0.9 (0.9-2) Lipase (73-393) U/L Procalcitonin (0-0.5) ng/ml Urine Color Urine Appearance (Clear) Urine pH (4.5-7.5) Ur Specific Dixon (1.000-1.030) Urine Protein (Negative) Urine Glucose (UA) (Negative) Urine Ketones (Negative) Urine Blood (Negative) Urine Nitrite (Negative) Urine Bilirubin (Negative) Urine Urobilinogen (Negative) Ur Leukocyte Esterase (Negative) COVID-19 Eval Order SARS-CoV-2 (PCR) (Negative) Hepatitis C Ab Screen Influ A Molecular Assay (Negative) Influ B Molecular Assay (Negative) 12/30/20 12/30/20 12/30/20 Range/Units 11:33 11:33 11:33 WBC (4.8-10.8) K/uL RBC (4.7-6.1) M/uL Hgb (14.0-18.0) g/dL Hct (42-52) % MCV (80-100) fL MCH (25-34) pg MCHC (32-36) g/dL RDW Std Deviation (36.4-46.3) fL RDW Coeff of Meenakshi (11.5-14.5) % Plt Count (130-400) K/uL MPV (7.4-10.4) fL Immature Gran % (Auto) % Neut % (Auto) % Lymph % (Auto) % Waller % (Auto) % Eos % (Auto) % Baso % (Auto) % Neut # (Auto) (1.4-6.5) K/uL Lymph # (Auto) (1.2-3.4) K/uL Waller # (Auto) (0.11-0.59) K/uL Eos # (Auto) (0-0.5) K/uL Baso # (Auto) (0-0.2) K/uL Immature Gran # (Auto) (0.00-0.02) K/uL Platelet Estimate (Normal) PT (9.0-12.0) Seconds INR (0.9-1.1) APTT (21.0-31.0) Seconds PTT Ratio Sodium (136-145) mmol/L Potassium (3.5-5.1) mmol/L Chloride (98-107) mmol/L Carbon Dioxide (21-32) mmol/L Anion Gap (3-11) BUN (7-18) mg/dl Creatinine (0.6-1.4) mg/dl Est Cr Clr Drug Dosing ml/min Est GFR ( Amer) ml/min Est GFR (Non-Af Amer) ml/min BUN/Creatinine Ratio (10-20) Glucose (70-99) mg/dl Lactate (0.4-2.0) mmol/L Calcium (8.5-10.1) mg/dl Magnesium (1.8-2.4) mg/dl Total Bilirubin (0.2-1) mg/dl Direct Bilirubin (0-0.2) mg/dl AST (15-37) U/L ALT (12-78) U/L Alkaline Phosphatase (45-117) U/L Troponin I (0-0.045) ng/ml Total Protein (6.4-8.2) gm/dl Albumin (3.4-5.0) gm/dl Globulin (2.5-4.0) gm/dl Albumin/Globulin Ratio (0.9-2) Lipase (73-393) U/L Procalcitonin (0-0.5) ng/ml Urine Color Urine Appearance (Clear) Urine pH (4.5-7.5) Ur Specific Dixon (1.000-1.030) Urine Protein (Negative) Urine Glucose (UA) (Negative) Urine Ketones (Negative) Urine Blood (Negative) Urine Nitrite (Negative) Urine Bilirubin (Negative) Urine Urobilinogen (Negative) Ur Leukocyte Esterase (Negative) COVID-19 Eval Order Covid19 at [facility] SARS-CoV-2 (PCR) NEGATIVE (Negative) Hepatitis C Ab Screen Influ A Molecular Assay Negative (Negative) Influ B Molecular Assay Negative (Negative) 12/30/20 12/30/20 12/30/20 Range/Units 11:25 10:55 10:55 WBC (4.8-10.8) K/uL RBC (4.7-6.1) M/uL Hgb (14.0-18.0) g/dL Hct (42-52) % MCV (80-100) fL MCH (25-34) pg MCHC (32-36) g/dL RDW Std Deviation (36.4-46.3) fL RDW Coeff of Meenakshi (11.5-14.5) % Plt Count (130-400) K/uL MPV (7.4-10.4) fL Immature Gran % (Auto) % Neut % (Auto) % Lymph % (Auto) % Waller % (Auto) % Eos % (Auto) % Baso % (Auto) % Neut # (Auto) (1.4-6.5) K/uL Lymph # (Auto) (1.2-3.4) K/uL Waller # (Auto) (0.11-0.59) K/uL Eos # (Auto) (0-0.5) K/uL Baso # (Auto) (0-0.2) K/uL Immature Gran # (Auto) (0.00-0.02) K/uL Platelet Estimate (Normal) PT (9.0-12.0) Seconds INR (0.9-1.1) APTT (21.0-31.0) Seconds PTT Ratio Sodium (136-145) mmol/L Potassium (3.5-5.1) mmol/L Chloride (98-107) mmol/L Carbon Dioxide (21-32) mmol/L Anion Gap (3-11) BUN (7-18) mg/dl Creatinine (0.6-1.4) mg/dl Est Cr Clr Drug Dosing ml/min Est GFR ( Amer) ml/min Est GFR (Non-Af Amer) ml/min BUN/Creatinine Ratio (10-20) Glucose (70-99) mg/dl Lactate (0.4-2.0) mmol/L Calcium (8.5-10.1) mg/dl Magnesium (1.8-2.4) mg/dl Total Bilirubin (0.2-1) mg/dl Direct Bilirubin (0-0.2) mg/dl AST (15-37) U/L ALT (12-78) U/L Alkaline Phosphatase (45-117) U/L Troponin I (0-0.045) ng/ml Total Protein (6.4-8.2) gm/dl Albumin (3.4-5.0) gm/dl Globulin (2.5-4.0) gm/dl Albumin/Globulin Ratio (0.9-2) Lipase (73-393) U/L Procalcitonin 1.43 H (0-0.5) ng/ml Urine Color Dark Yellow Urine Appearance Clear (Clear) Urine pH 5.5 (4.5-7.5) Ur Specific Dixon 1.019 (1.000-1.030) Urine Protein Negative (Negative) Urine Glucose (UA) Negative (Negative) Urine Ketones Trace H (Negative) Urine Blood Negative (Negative) Urine Nitrite Negative (Negative) Urine Bilirubin Negative (Negative) Urine Urobilinogen Negative (Negative) Ur Leukocyte Esterase Negative (Negative) COVID-19 Eval Order SARS-CoV-2 (PCR) (Negative) Hepatitis C Ab Screen Pending Influ A Molecular Assay (Negative) Influ B Molecular Assay (Negative) 12/30/20 12/30/2012/30/21 Range/Units 10:55 10:55 10:55 WBC (4.8-10.8) K/uL RBC (4.7-6.1) M/uL Hgb (14.0-18.0) g/dL Hct (42-52) % MCV (80-100) fL MCH (25-34) pg MCHC (32-36) g/dL RDW Std Deviation (36.4-46.3) fL RDW Coeff of Meenakshi (11.5-14.5) % Plt Count (130-400) K/uL MPV (7.4-10.4) fL Immature Gran % (Auto) % Neut % (Auto) % Lymph % (Auto) % Waller % (Auto) % Eos % (Auto) % Baso % (Auto) % Neut # (Auto) (1.4-6.5) K/uL Lymph # (Auto) (1.2-3.4) K/uL Waller # (Auto) (0.11-0.59) K/uL Eos # (Auto) (0-0.5) K/uL Baso # (Auto) (0-0.2) K/uL Immature Gran # (Auto) (0.00-0.02) K/uL Platelet Estimate (Normal) PT 10.7 (9.0-12.0) Seconds INR 1.1 (0.9-1.1) APTT 20.9 L (21.0-31.0) Seconds PTT Ratio 0.8 Sodium 140 (136-145) mmol/L Potassium 3.9 (3.5-5.1) mmol/L Chloride 110 H (98-107) mmol/L Carbon Dioxide 22 (21-32) mmol/L Anion Gap 8.0 (3-11) BUN 13 (7-18) mg/dl Creatinine 1.20 (0.6-1.4) mg/dl Est Cr Clr Drug Dosing 58.0 ml/min Est GFR ( Amer) 69.6 ml/min Est GFR (Non-Af Amer) 60.1 ml/min BUN/Creatinine Ratio 11.1 (10-20) Glucose 115 H (70-99) mg/dl Lactate 3.9 H* (0.4-2.0) mmol/L Calcium 8.9 (8.5-10.1) mg/dl Magnesium 1.6 L (1.8-2.4) mg/dl Total Bilirubin 1.7 H (0.2-1) mg/dl Direct Bilirubin (0-0.2) mg/dl AST 549 H (15-37) U/L ALT 429 H (12-78) U/L Alkaline Phosphatase 104 (45-117) U/L Troponin I < 0.015 (0-0.045) ng/ml Total Protein 7.5 (6.4-8.2) gm/dl Albumin 3.6 (3.4-5.0) gm/dl Globulin 3.9 (2.5-4.0) gm/dl Albumin/Globulin Ratio 0.9 (0.9-2) Lipase 171 (73-393) U/L Procalcitonin (0-0.5) ng/ml Urine Color Urine Appearance (Clear) Urine pH (4.5-7.5) Ur Specific Dixon (1.000-1.030) Urine Protein (Negative) Urine Glucose (UA) (Negative) Urine Ketones (Negative) Urine Blood (Negative) Urine Nitrite (Negative) Urine Bilirubin (Negative) Urine Urobilinogen (Negative) Ur Leukocyte Esterase (Negative) COVID-19 Eval Order SARS-CoV-2 (PCR) (Negative) Hepatitis C Ab Screen Influ A Molecular Assay (Negative) Influ B Molecular Assay (Negative) 12/30/20 Range/Units 10:55 WBC 7.30 (4.8-10.8) K/uL RBC 5.11 (4.7-6.1) M/uL Hgb 15.9 (14.0-18.0) g/dL Hct 47.2 (42-52) % MCV 92.4 (80-100) fL MCH 31.1 (25-34) pg MCHC 33.7 (32-36) g/dL RDW Std Deviation 45.5 (36.4-46.3) fL RDW Coeff of Meenakshi 13.4 (11.5-14.5) % Plt Count 135 (130-400) K/uL MPV 12.5 H (7.4-10.4) fL Immature Gran % (Auto) 0.3 % Neut % (Auto) 94.4 % Lymph % (Auto) 4.0 % Waller % (Auto) 1.2 % Eos % (Auto) 0.0 % Baso % (Auto) 0.1 % Neut # (Auto) 6.89 H (1.4-6.5) K/uL Lymph # (Auto) 0.29 L (1.2-3.4) K/uL Waller # (Auto) 0.09 L (0.11-0.59) K/uL Eos # (Auto) 0.00 (0-0.5) K/uL Baso # (Auto) 0.01 (0-0.2) K/uL Immature Gran # (Auto) 0.02 (0.00-0.02) K/uL Platelet Estimate (Normal) PT (9.0-12.0) Seconds INR (0.9-1.1) APTT (21.0-31.0) Seconds PTT Ratio Sodium (136-145) mmol/L Potassium (3.5-5.1) mmol/L Chloride (98-107) mmol/L Carbon Dioxide (21-32) mmol/L Anion Gap (3-11) BUN (7-18) mg/dl Creatinine (0.6-1.4) mg/dl Est Cr Clr Drug Dosing ml/min Est GFR ( Amer) ml/min Est GFR (Non-Af Amer) ml/min BUN/Creatinine Ratio (10-20) Glucose (70-99) mg/dl Lactate (0.4-2.0) mmol/L Calcium (8.5-10.1) mg/dl Magnesium (1.8-2.4) mg/dl Total Bilirubin (0.2-1) mg/dl Direct Bilirubin (0-0.2) mg/dl AST (15-37) U/L ALT (12-78) U/L Alkaline Phosphatase (45-117) U/L Troponin I (0-0.045) ng/ml Total Protein (6.4-8.2) gm/dl Albumin (3.4-5.0) gm/dl Globulin (2.5-4.0) gm/dl Albumin/Globulin Ratio (0.9-2) Lipase (73-393) U/L Procalcitonin (0-0.5) ng/ml Urine Color Urine Appearance (Clear) Urine pH (4.5-7.5) Ur Specific Dixon (1.000-1.030) Urine Protein (Negative) Urine Glucose (UA) (Negative) Urine Ketones (Negative) Urine Blood (Negative) Urine Nitrite (Negative) Urine Bilirubin (Negative) Urine Urobilinogen (Negative) Ur Leukocyte Esterase (Negative) COVID-19 Eval Order SARS-CoV-2 (PCR) (Negative) Hepatitis C Ab Screen Influ A Molecular Assay (Negative) Influ B Molecular Assay (Negative)
--- NOTE | 2020-12-31 13:33 | Hospitalist Progress Note ---
Date of Service December 31, 2020 Assessment & Plan (1) Cholangitis: Likely has cholangitis Presented with weakness, fever and chills and abdominal discomfort Has been on intravenous Zosyn and getting intravenous fluid Will monitor LFTs Blood culture is growing gram-negative bacilli-sensitivities pending Clinically better and will continue current antibiotic Appreciate GI and surgery input and recommendation We will have ERCP day after tomorrow (2) Cholelithiasis: Patient is 70-year-old male with PMH HTN, HLD, GERD, stroke, BPH, h/o DVT and is on Eliquis presented to ER with c/o abdominal pain, chills, sweats this morning. Vomited x1 in ER. Denies diarrhea No acute cholecystitis on imaging studies, ultrasound, CT scan and MRCP In ER T: 38.8C, P: 136, R: 18, BP: 121/74, 90% on room air. No leukocytosis, Lactic acid: 3.9, procalcitonin: 1.4, T bili: 1.7, AST: 549, ALT: 429, alk phos: 104 CT ABDOMEN/PELVIS: 1. No bowel obstruction or bowel wall thickening. Normal appendix. 2. 2.5 cm intraluminal filling defect within the gallbladder neck is suggestive of cholelithiasis versus tumefactive sludge. No CT evidence of acute cholecystitis. Findings could be correlated with ultrasound if of further clinical concern. 3. Nonobstructing left nephrolithiasis 4. Mild colonic diverticulosis. 5. Hepatic steatosis. GALLBLADDER ULTRASOUND: 1. Mild gallbladder distention with cholelithiasis. No sonographic evidence of acute cholecystitis 2. No biliary ductal dilation. 3. Hepatic steatosis. CXR: Mild linear right lung base opacities favor atelectasis. -IVF -Zosyn -Clear liquid diet, NPO midnight -General surgery consult-not for any surgery -GI consulted as above -LFTs are slightly better (3) Hypomagnesemia: Magnesium: 1.6 -replace and monitor (4) HTN (hypertension): -Hold lisinopril (5) HLD (hyperlipidemia): -hold statin for now (6) History of DVT (deep vein thrombosis): Patient reports history of lower extremity DVT and PE many years ago and has been on anticoagulants since. Patient is unsure if it was provoked or unprovoked DVT On Eliquis -Hold Eliquis in case of procedure (7) BPH (benign prostatic hyperplasia): -continue tamsulosin (8) Stroke: Some residual right sided weakness DVT Prophylaxis -Eliquis on hold -Heparin SQ Full Code as per discussion with pt Follows with Dr Orosco for routine care Admission and Anticipated Discharge Date Admission Date: December 30, 2020 Subjective 12/31/2020 The patient was seen and examined in telemetry unit He denies any significant symptoms except some abdominal discomfort without nausea and or vomiting He denies any fever and/or chills Review of Systems Review of Systems: All systems reviewed and are unremarkable except as noted below Neurologic: + generalized weakness Physical Exam Physical Exam: Lying in bed comfortably Constitutional: well developed, well nourished and + ill appearing Eyes: PERRL, conjunctivae normal, anicteric sclerae ENMT: external ear and nose normal, oropharynx normal Neck: trachea midline, no thyromegaly Respiratory: no respiratory distress Auscultation: lungs clear to auscultation bilaterally; no crackles Cardiovascular: Rate/Rhythm: regular rate and regular rhythm Heart Sounds: no murmur Extremities: no edema Gastrointestinal (Abdomen): Inspection/Auscultation: + abdomen distended and normal bowel sounds Percussion/Palpation: + abdomen tender (Discomfort but no tenderness) and abdomen soft Musculoskeletal: No acute arthritis in any joint Neurologic: Alert, awake and oriented x3 Psychiatric: A+Ox3, euthymic affect Lymphatic: no cervical or axillary lymphadenopathy Results & Data Results & Data ([facility]) Vital Signs (Past 12 Hours) Vital Signs Temp Pulse Pulse Resp BP Pulse Ox 12/31/20 11:31 37.0 C 59 L 18 127/73 94 12/31/20 08:10 66 12/31/20 08:09 36.8 C 58 L 18 128/75 95 12/31/20 04:05 37.4 C 68 20 116/74 92 Laboratory Results Short CBC 12/31/20 Range/Units 06:11 WBC 14.78 H (4.8-10.8) K/uL Hgb 14.2 (14.0-18.0) g/dL Hct 43.5 (42-52) % Plt Count 110 L (130-400) K/uL BMP 12/31/20 06:11 Sodium 140 Potassium 4.2 Chloride 111 H Carbon Dioxide 25 BUN 13 Creatinine 1.04 Glucose 89 Calcium 7.9 L Liver Function 12/31/20 Range/Units 06:11 Total Bilirubin 3.5 H D (0.2-1) mg/dl Direct Bilirubin 2.2 H (0-0.2) mg/dl AST 226 H (15-37) U/L ALT 320 H (12-78) U/L Alkaline Phosphatase 76 (45-117) U/L Albumin 2.9 L (3.4-5.0) gm/dl Medications Administered Current Inpatient Medications Gabapentin (Gabapentin 300 Mg Cap) 300 mg PO HS PRN PRN Reason: Restless Leg(S) Stop: 01/29/21 16:00 Heparin Sodium (Porcine) (Heparin Sod 5,000 Unit/0.5 Ml Vial) 5,000 units SQ Q8 YOSELIN Stop: 01/29/21 21:59 Last Admin: 12/31/20 06:20 Dose: 5,000 units Documented by: Hydromorphone HCl (Hydromorphone Inj 0.5 Mg/0.5 Ml Syr) 0.5 mg IV Q6H PRN PRN Reason: Pain Stop: 01/13/21 16:00 Sodium Chloride (Nss 1000ml) 1,000 mls @ 125 mls/hr IV .Q8H YOSELIN Stop: 12/31/20 15:59 Last Admin: 12/31/20 09:39 Dose: 125 mls/hr Documented by: Piperacillin Sod/Tazobactam (Sod 3.375 gm/ Dextrose) 115 mls @ 28.75 mls/hr IV Q8H YOSELIN; Protocol Stop: 01/09/21 21:59 Last Infusion: 12/31/20 10:42 Dose: Infused Documented by: Miscellaneous Information (Piperacill/Tazobac Consult Active) 1 ea N/A UD PRN PRN Reason: Consult Stop: 01/29/21 15:59 Ondansetron HCl (Ondansetron Inj 2 Mg/Ml 2 Ml Vial) 4 mg IV Q6H PRN PRN Reason: Nausea Stop: 01/29/21 15:59 Tamsulosin HCl (Tamsulosin Hcl 0.4 Mg Cap) 0.8 mg PO HS YOSELIN Stop: 01/29/21 20:59 Last Admin: 12/30/20 19:46 Dose: 0.8 mg Documented by:
[2020-12-31] MEDS ORDERED: LIDOCAINE 2% 2 ML VIAL/AMP(20MG/ML) INFIL ONE (14:03)
[2020-12-31] MEDS ORDERED: PROPOFOL IV EMULSION 10 MG/ML 20 ML VIAL IV ONE (14:03)
[2020-12-31] MEDS ORDERED: fentaNYL citrate 100 MCG/2 ML VIAL ONE (14:03)
--- NOTE | 2020-12-31 14:08 | Anesthesiology Consultation ---
Date of Service December 31, 2020 Assessment & Plan (1) Encounter for pre-operative examination: Chart Review Chart Review: Acceptable Risk for Surgery (necessary surgery) and Patient NOT seen in Pre Admission Testing Consults Requested none History Surgery Operation Date: 12/31/20 12:45 Proposed Procedures p Endoscopic Retrograde Cholangiopancreato - Ferny Walters DO Height/Weight Height: 5 ft 6 in Weight: 76.7 kg Allergies Allergy/AdvReac Type Severity Reaction Status Date / Time No Known Allergies Allergy Unverified 12/30/20 12:37 Medications Home Medications Medication Instructions Recorded Confirmed Last Taken apixaban [Eliquis] 5 mg PO BID 12/30/20 12/30/20 12/30/20 docusate sodium [Colace] 100 mg PO BID PRN 12/30/20 12/30/20 Unknown gabapentin [Neurontin] 300 - 600 mg PO HS PRN 12/30/20 12/30/20 Unknown lisinopril [Zestril] 10 mg PO QAM 12/30/20 12/30/20 12/30/20 simvastatin [Zocor] 20 mg PO HS 12/30/20 12/30/20 12/29/20 tamsulosin [Flomax] 0.8 mg PO HS 12/30/20 12/30/20 12/29/20 Active Medications Generic Name Dose Route Start Last Admin Trade Name Freq PRN Reason Stop Dose Admin Heparin Sodium (Porcine) 5,000 units 12/30/20 22:00 12/31/20 06:20 Heparin Sod 5,000 Unit/0.5 Ml Vial SQ 01/29/21 21:59 5,000 units Q8 YOSELIN Administration Sodium Chloride 1,000 mls @ 125 mls/hr 12/30/20 16:00 12/31/20 09:39 Nss 1000ml IV 12/31/20 15:59 125 mls/hr .Q8H YOSELIN Administration Piperacillin Sod/Tazobactam 115 mls @ 28.75 mls/hr 12/30/20 22:00 12/31/20 10:42 Sod 3.375 gm/ Dextrose IV 01/09/21 21:59 Infused Q8H YOSELIN Infusion Protocol Tamsulosin HCl 0.8 mg 12/30/20 21:00 12/30/20 19:46 Tamsulosin Hcl 0.4 Mg Cap PO 01/29/21 20:59 0.8 mg HS YOSELIN Administration Past Medical History Medical History BPH (benign prostatic hyperplasia) GERD (gastroesophageal reflux disease) History of DVT (deep vein thrombosis) HLD (hyperlipidemia) HTN (hypertension) Incomplete right bundle branch block Stroke Past Family History Family History Mother Cancer stomach Sister Cancer stomach Father Stroke Past Surgical History Surgical History History of colonoscopy 2017-diverticulosis Social History Smoking Status: Former smoker Hx Alcohol Use: No Hx Substance Use: No Physical Exam Vital Signs Last Vital Signs Temp 37.0 C 12/31/20 11:31 Pulse 59 L 12/31/20 11:31 Resp 18 12/31/20 11:31 BP 127/73 12/31/20 11:31 Pulse Ox 94 12/31/20 11:31 Testing Laboratory Results 12/31/20 06:11 12/31/20 06:11 PT 10.7 Seconds (9.0-12.0) 12/30/20 10:55 INR 1.1 (0.9-1.1) 12/30/20 10:55 APTT 20.9 Seconds (21.0-31.0) L 12/30/20 10:55 Urine Color Dark Yellow 12/30/20 11:25 Urine Appearance Clear (Clear) 12/30/20 11:25 Urine pH 5.5 (4.5-7.5) 12/30/20 11:25 Ur Specific [place] 1.019 (1.000-1.030) 12/30/20 11:25 Urine Protein Negative (Negative) 12/30/20 11:25 Urine Glucose (UA) Negative (Negative) 12/30/20 11:25 Urine Ketones Trace (Negative) H 12/30/20 11:25 Urine Nitrite Negative (Negative) 12/30/20 11:25 Ur Leukocyte Esterase Negative (Negative) 12/30/20 11:25 12/30/20 10:55 Aerobic Blood Culture - Preliminary Blood Gram negative bacilli Anaerobic Blood Culture - Preliminary Gram negative bacilli 12/30/20 10:55 Aerobic Blood Culture - Preliminary Blood Gram negative bacilli Anaerobic Blood Culture - Preliminary Gram negative bacilli Electrocardiogram Findings: + NSST changes, + RBBB (incomplete) and + ST @ (110) Chest X-Ray Date: 12/30/20 XR chest 1V portable HISTORY: 70 years-old Male SEPSIS acute sepsis COMPARISON: None TECHNIQUE: AP view of the chest FINDINGS: Cardiac silhouette is enlarged. Mild linear right lung base subsegmental opacities. No pneumothorax, pleural effusion or overt pulmonary edema. Degenerative changes of the shoulders and spine. IMPRESSION: Mild linear right lung base opacities favor atelectasis. ACT 112: Negative or not required by law. The above report was generated using voice recognition software. It may contain grammatical, syntax or spelling errors. Electronically signed by: Rickey Bear M.D. 12/30/2020 11:17 AM Dictated: 12/30/20 1116Transcribed: 12/30/20 1116 Other Testing ABDOMEN AND PELVIS CT WITH IV CONTRAST CT DOSE: 421.02 mGy.cm HISTORY: Acute fever with generalized abdominal pain fever tahcycardia abd pain TECHNIQUE: Multiaxial CT images of the abdomen and pelvis were performed following the IV administration of 93 cc of Optiray, A dose lowering technique was utilized adhering to the principles of ALARA. COMPARISON STUDY: Chest radiograph of same day FINDINGS: Coronary artery calcifications. Mild right hemidiaphragmatic elevation with linear atelectasis/scarring. No pneumatosis or pneumoperitoneum. The spleen, pancreas and adrenal glands are unremarkable. There is a soft tissue density intraluminal filling defects within the gallbladder neck measuring 2.[address] evidence of acute cholecystitis. No biliary ductal dilation identified. Hepatic steatosis. Patency of the hepatic and portal veins. Mild nonspecific bilateral perinephric stranding. 6 mm cyst of the superior pole left kidney. There are 2 subadjacent calculi of the interpolar left kidney measuring up to 3 mm. No ureteral calculi or hydronephrosis. Prostamegaly. Mild urinary bladder distention. Atherosclerosis of the aorta without aneurysm. No adenopathy. Hyperdense material noted within the stomach and right lower quadrant small bowel. Colonic diverticulosis. Noninflamed appendix. No ascites or mesenteric inflammation. Unremarkable soft tissues. No acute fracture. IMPRESSION: 1. No bowel obstruction or bowel wall thickening. Normal appendix. 2. 2.5 cm intraluminal filling defect within the gallbladder neck is suggestive of cholelithiasis versus tumefactive sludge. No CT evidence of acute cholecystitis. Findings could be correlated with ultrasound if of further clinical concern. 3. Nonobstructing left nephrolithiasis 4. Mild colonic diverticulosis. 5. Hepatic steatosis. ACT 112: Negative or not required by law. The above report was generated using voice recognition software. It may contain grammatical, syntax or spelling errors. Electronically signed by: Rickey Bear M.D. 12/30/2020 12:37 PM Dictated: 12/30/20 1226Transcribed: 12/30/20 1226
[2020-12-31] MEDS ORDERED: ePHEDrine sulfate 50 MG/ML AMP IV PRN (14:12)
[2020-12-31] MEDS ORDERED: ATROPINE SULFATE 0.1 MG/ML 10ML SYR IV PRN (14:12)
[2020-12-31] MEDS ORDERED: HYDROmorphone INJ 1 MG/ML SYRINGE IV PRN (14:13)
[2020-12-31] MEDS ORDERED: PHENYLEPHRINE 100MCG/ML 5ML SYR IV PRN (14:13)
[2020-12-31] MEDS ORDERED: LABETALOL HCL IV 5 MG/ML 20ML IV PRN (14:13)
[2020-12-31] MEDS ORDERED: ONDANSETRON INJ 2 MG/ML 2 ML VIAL IV PRN (14:13)
[2020-12-31] MEDS ORDERED: fentaNYL citrate 100 MCG/2 ML VIAL IV PRN (14:13)
[2020-12-31] MEDS ORDERED: INDOMETHACIN 50 MG SUPP PR ONE ×2 (14:30→14:45)
--- NOTE | 2020-12-31 14:35 | History & Physical Bridge Note ---
Date of Service December 31, 2020 History & Physical Bridge Note I have examined the patient, reviewed the History & Physical and in the interval since the performance of the History & Physical I have noted the following changes of clinical significance: no changes noted. Urgent ERCP was requested increase in his liver associated enzymes, bilirubin and white blood cell count overnight. I have discussed the risks of the procedure with the patient to include bleeding, infection, perforation, pancreatitis, failed biliary cannulation and need for follow-up studies. We also discussed the increased risk of bleeding given his recent dosing with Xarelto.
[2020-12-31] MEDS ORDERED: SCOPOLAMINE 1 MG TDSY TD ONE (14:39)
[2020-12-31] MEDS ORDERED: PHENYLEPHRINE HCL 10 MG/ML VIAL ONE (15:45)
[2020-12-31] MEDS ORDERED: ESMOLOL HCL INJ 10 MG/ML 10ML VIAL IV ONE (15:45)
[2020-12-31] MEDS ORDERED: DEXAMETHASONE SOD INJ 4 MG/ML VIAL ONE (15:45)
[2020-12-31] MEDS ORDERED: ePHEDrine sulfate 50 MG/ML AMP ONE (15:45)
[2020-12-31] MEDS ORDERED: ROCURONIUM BROMIDE 10 MG/ML 5 ML VIAL IV ONE (15:45)
[2020-12-31] MEDS ORDERED: ONDANSETRON INJ 2 MG/ML 2 ML VIAL ONE (15:45)
--- NOTE | 2020-12-31 15:56 | Post Operative Brief Note ---
Immediate Post Op Note v1 Date of Surgery December 31, 2020 Pre & Post Diagnosis Operation Date: 12/31/20 12:45 Pre-Op Diagnosis: cholangitis Post-Op Diagnosis: cholangitis I identified the patient and participated in the time-out.: Yes Procedure Operation Date: 12/31/20 12:45 Actual Procedures p Endoscopic Retrograde Cholangiopancreatography, bile duct stent placement - Ferny Walters DO Surgeon Ferny Walters DO Health Lead none Estimated Blood Loss 0 Findings Consistent with Post-Op Diagnosis
--- NOTE | 2020-12-31 16:12 | GI REPORT ---
Patient Name: Tim Marie Procedure Date: 12/31/2020 2:46 PM Date of : 1950 Admit Type: Inpatient Age: 70 Gender: Male Attending MD: Ferny Walters DO Procedure: ERCP Providers: Ferny Walters DO Referring MD: Hilda Michel Md Indications: Abdominal pain of suspected biliary origin, Suspected ascending cholangitis Medicines: General Anesthesia Complications: No immediate complications. Estimated blood loss: Minimal. Estimated Blood Loss: Estimated blood loss was minimal. Procedure: Pre-Anesthesia Assessment: - Prior to the procedure, a History and Physical was performed, and patient medications, allergies and sensitivities were reviewed. The patient's tolerance of previous anesthesia was reviewed. - The risks and benefits of the procedure and the sedation options and risks were discussed with the patient. All questions were answered and informed consent was obtained. - Patient identification and proposed procedure were verified prior to the procedure by the physician, the nurse and the datapower developer. The procedure was verified in the procedure room. - Pre-procedure physical examination revealed no contraindications to sedation. - ASA Grade Assessment: III - A patient with severe systemic disease. - After reviewing the risks and benefits, the patient was deemed in satisfactory condition to undergo the procedure. - The anesthesia plan was to use monitored anesthesia care (MAC). - Immediately prior to administration of medications, the patient was re-assessed for adequacy to receive sedatives. - The heart rate, respiratory rate, oxygen saturations, blood pressure, adequacy of pulmonary ventilation, and response to care were monitored throughout the procedure. - The physical status of the patient was re-assessed after the procedure. After obtaining informed consent, the scope was passed under direct vision. Throughout the procedure, the patient's blood pressure, pulse, and oxygen saturations were monitored continuously. The Scope was introduced through the mouth, and advanced to the duodenum and used for direct visualization of the bile duct. The patient tolerated the procedure well. The ERCP was unusually difficult due to challenging cannulation because of inadequate scope positioning and challenging cannulation because of intradiverticular papilla. Successful completion of the procedure was aided by performing the maneuvers documented (below) in this report. Findings: A house wirer film of the abdomen was obtained. The esophagus was successfully intubated under direct vision without detailed examination of the pharynx, larynx, and associated structures, and upper GI tract. The upper GI tract was grossly normal. The major papilla was located entirely within a large diverticulum. The major papilla was congested. The bile duct could not initially be cannulated with the short-nosed traction sphincterotome and guidewire (Cook omni with a 0.035 in Acrobat 2 guidewire and then with a [place] [employer] Rx 39 and 0.025 Dream guidewire. Through the ERCP scope five hemostatic clips were successfully placed (MR conditional) in the area of the papilla to help with positioning of the ampulla. The bile duct was deeply cannulated with the short-nosed traction sphincterotome (Rx 39 and 0.025 in Dream guidewire) and guidewire in a "long" position. Contrast was injected. I personally interpreted the bile duct images. Contrast extended to the hepatic ducts. The lower third of the main bile duct contained filling defect(s) thought to be a stone. Biliary sphincterotomy was made with a monofilament Dreamtome sphincterotome using ERBE electrocautery. There was no post-sphincterotomy bleeding. To discover objects, the biliary tree was swept with an 11 mm balloon starting at the bifurcation. One stone was removed. No stones remained. Pus was swept from the duct. One 7 Fr by 7 cm biliary stent with a full external pigtail and a full internal pigtail was placed 7 cm into the common bile duct. Bile and pus flowed through the stent. The stent was in good position. The endoscope was withdrawn from the patient. Indomethacin 100 mg was given via suppository to decrease the risk of post-ERCP pancreatitis (PEP). Impression: - The major papilla was located entirely within a diverticulum. - Five hemostatic clips were successfully placed (MR conditional) in the area of the papilla to allow access. - Choledocholithiasis was found. Complete removal was accomplished by biliary sphincterotomy and balloon extraction. - The biliary tree was swept and pus was found. - One biliary stent was placed into the common bile duct. - Indomethacin given to decrease risk of post-ERCP pancreatitis. Recommendation: - Avoid aspirin and nonsteroidal anti-inflammatory medicines for 1 week. - Clear liquid diet today. - Use broad spectrum antibiotics for 2 weeks. - Repeat ERCP in 6 weeks to remove stent. - cholecystectomy via general surgery. Ferny Walters D.O. Ferny Walters, 12/31/2020 4:11:36 PM This report has been signed electronically. Note Initiated On: 12/31/2020 2:46 PM Number of Addenda: 0 I attest to the content of the Intraoperative Record and orders documented therein, exceptions below {[id number]}
--- NOTE | 2020-12-31 16:13 | Communication Note ---
Date of Service: December 31, 2020 The patient underwent ERCP this afternoon. 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 The patient was found to have evidence of pus con sistent with the clinical diagnosis of cholangitis. A biliary stent was placed into the bile duct Recommendations Continue antibiotic coverage for 2 weeks Avoid nonsteroidals for 1 week Please continue to hold anticoagulation for at least 72 hours Cholecystectomy per general surgery Repeat ERCP in 6 to 8 weeks for biliary stent removal
--- NOTE | 2020-12-31 16:27 | Anesthesiology Progress Note ---
Date of Service December 31, 2020 Anesthesia Post Procedure Vital Signs Vital Signs: Temp Pulse Pulse Pulse Resp BP BP 12/31/20 16:20 43 L 18 105/56 L 12/31/20 16:10 36.0 C L 55 L 16 116/67 12/31/20 15:00 37.7 C H 64 22 143/80 H 12/31/20 11:31 37.0 C 59 L 18 127/73 12/31/20 08:10 66 12/31/20 08:09 36.8 C 58 L 18 128/75 12/31/20 04:05 37.4 C 68 20 116/74 12/31/20 01:21 37.2 C 12/30/20 23:55 37.6 C H 67 16 105/64 12/30/20 19:43 37 C 70 19 111/63 12/30/20 18:18 37.1 C 100/59 L Pulse Ox 12/31/20 16:20 95 12/31/20 16:10 95 12/31/20 15:00 95 12/31/20 11:31 94 12/31/20 08:10 12/31/20 08:09 95 12/31/20 04:05 92 12/31/20 01:21 12/30/20 23:55 98 12/30/20 19:43 94 12/30/20 18:18 Transfer of Care Handoff Completed per policy Notes Mental Status: alert / awake / arousable Patient Amnestic to Procedure: Yes Nausea / Vomiting: adequately controlled Pain: adequately controlled Airway Patency, RR, SpO2: stable & adequate BP & HR: stable & adequate Hydration State: stable & adequate Anesthetic Complications: no major complications apparent and Pt Satisfied with anesthetic care Notes: The patient is awake and comfortable.
--- NOTE | 2020-12-31 16:43 | Fluoroscopy Report ---
[place] ERCP biliary ductal HISTORY: 70 years-old Male EXPLORE DUCTS acute right upper quadrant abdominal pain with fever and ta chycardia. COMPARISON: MRCP and CT abdomen and pelvis studies 12/30/2020 TECHNIQUE: 5 spot fluoroscopic images of the right upper quadrant abdomen were obtained utilizing 20. 3 seconds fluoroscopy time FINDINGS: Endoscope is noted within the duodenum. Cannulation of the common bile duct with retrograde injection of contrast. Subsequent images demonstrate placement of a common bile duct stent. Trace contrast wit hin the gallbladder. Surgical clips project over the duodenum. IMPRESSION: Fluoroscopic assistance as above. ACT 112: Negative or not required by law. The above report was generated using voice recognition software. It may contain grammatical, syntax o r spelling errors. Electronically signed by: Rickey Bear M.D. 12/31/2020 4:42 PM
--- NOTE | 2020-12-31 17:47 | Electrocardiogram Report ---
Test Reason : Blood Pressure : / mmHG Vent. Rate : 110 BPM Atrial Rate : 110 BPM P-R Int : 192 ms QRS Dur : 104 ms QT Int : 306 ms P-R-T Axes : 034 -21 010 degrees QTc Int : 414 ms Sinus tachycardia Incomplete right bundle branch block Nonspecific T wave abnormality Abnormal ECG No previous ECGs available Confirmed by Josef Ho ([id number]) on 12/31/2020 5:47:08 PM Referred By: REFERRED SELF Confirmed By:Cesar Ho
[2020-12-31] MEDS: TAMSULOSIN HCL 0.4 MG CAP PO SCH (21:51)
[2021-01-01] MEDS: HEPARIN SOD 5,000 UNIT/0.5 ML VIAL SQ SCH ×3 (05:53→22:20)
[2021-01-01] MEDS: PIPERACILLIN/TAZOBACTAM 3.375 GM in DEXTROSE 5% 100 ML IV SCH ×3 (05:53→22:20)
[2021-01-01 07:07] LABS: Hemoglobin 13.5 g/dL (14.0-18.0); Mean Corpuscular Hemoglobin 30.3 pg (25-34); Mean Corpuscular Hgb Conc 32.9 g/dL (32-36); Mean Corpuscular Volume 92.1 fL (80-100); Platelet Count 101 K/uL (130-400); RDW Coefficient of Variation 13.7 % (11.5-14.5); RDW Standard Deviation 46.5 fL (36.4-46.3); Red Blood Count 4.45 M/uL (4.7-6.1); White Blood Count 10.69 K/uL (4.8-10.8)
[2021-01-01 07:30] LABS: Eosinophils # (auto) 0.01 K/uL (0-0.5); Eosinophils % (auto) 0.1 %; Immature Granulocytes # (auto) 0.03 K/uL (0.00-0.02); Immature Granulocytes % (auto) 0.3 %; Lymphocytes # (auto) 0.45 K/uL (1.2-3.4); Lymphocytes % (auto) 4.2 %; Monocytes # (auto) 0.87 K/uL (0.11-0.59); Monocytes % (auto) 8.1 %; Neutrophils # (auto) 9.33 K/uL (1.4-6.5); Neutrophils % (auto) 87.3 %
[2021-01-01 07:44] LABS: Albumin Level 2.8 gm/dl (3.4-5.0); BUN Creatinine Ratio 15.8 (10-20); Calcium 8.2 mg/dl (8.5-10.1); Creatinine Clr Calc Pharmacy 65.8 ml/min; Est GFR (African American) 87.8 ml/min; Est GFR (Non-African American) 75.8 ml/min; Potassium 4.1 mmol/L (3.5-5.1)
--- NOTE | 2021-01-01 07:49 | Surgery Progress Note ---
Date of Service January 01, 2021 Assessment & Plan (1) Cholangitis: Patient is here with cholelithiasis; + cholangitis on ERCP yesterday WBC 10 (14), patient afebrile. LFT's downtrending Tb: 1.1(3.5), AST: 123, ALT: 228 Continue on IV abx coverage x2 weeks per GI We have patient on the schedule for tomorrow for lap sachin. Continue to hold Eliquis. NPO at midnight Admission and Anticipated Discharge Date Admission Date: December 30, 2020 Supervising Physician Co-Signing Physician Notes I personally saw and evaluated the patient with Saadia Bose PA-C and agree with the assessment and plan. 70 yo with obstructive jaundice, cholangitis s/p ERCP -No signs of cholecystitis on imaging -Will plan on cholecystectomy tomorrow -Hold AM SubQ heparin -Consent obtained, risks discussed including bleeding, infection, bile leak, ductal injury Subjective The patient says he feels good this AM. Tolerating clears. Denies nausea/vomiting. Physical Exam Physical Exam: awake/alert Constitutional: no acute distress Gastrointestinal (Abdomen): Inspection/Auscultation: + abdomen distended (mild) Percussion/Palpation: abdomen soft; abdomen nontender Results & Data ([facility]) Vital Signs (Past 12 Hours) Vital Signs Temp Pulse Pulse Resp BP Pulse Ox 01/01/21 04:42 36.6 C 56 L 18 151/85 H 92 01/01/21 00:00 49 L 12/31/20 23:54 36.6 C 54 L 20 123/85 96 12/31/20 20:13 36.9 C 57 L 18 153/87 H 93 PG Care Time/CCT Total # of Minutes Spent Total Time Spent with Patient: Total time spent is greater than 50% in coordination of care (as documented) at patient's floor/unit and/or counseling patient: Coding Level of Care Code 08976 Subseq Hosp Care Lvl 1 Diagnoses Cholangitis K83.09
[2021-01-01 07:52] LABS: Albumin Globulin Ratio 0.8 (0.9-2); Bilirubin,Total 1.1 mg/dl (0.2-1); Globulin 3.5 gm/dl (2.5-4.0); Total Protein 6.3 gm/dl (6.4-8.2)
--- NOTE | 2021-01-01 08:19 | Gastroenterology Progress Note ---
Date of Service January 01, 2021 Assessment & Plan (1) Ascending cholangitis: 70 year old male on Eliquis admitted w/ pain, imaging w/ gallstones, evaluated by general surgery. Consuelo PICKENS asked to evaluate this AM by [facility] given rise in WBC and LFTs overnight concerning for cholangitis s/p ERCP w/ evidence of cholangitis s/p stent placing Diet as tolerated GI will sign off Continue antibiotic coverage for 2 weeks Avoid nonsteroidals for 1 week Please continue to hold anticoagulation for at least 72 hours Cholecystectomy per general surgery Repeat ERCP in 6 to 8 weeks for biliary stent removal Thank you for allowing us to participate in the care of this patient. Please call with any acute changes, questions or concerns. Please see addendum below with additional recommendation from my supervising physician. Admission and Anticipated Discharge Date Admission Date: December 30, 2020 Supervising Physician Co-Signing Physician Notes S/p ERCP yesterday No complaints today PE - alert and oriented, benign abdomen Further plan of care as per Anisha's plan of care. Subjective Pt was seen and evaluated, chart reviewed. Feeling better s/p ERCP No abd pain, nausea, vomiting No fever, chills, CP, SOB HGB stable Review of Systems Review of Systems: All systems reviewed & are unremarkable except as noted in HPI & below Physical Exam Constitutional: WD/WN, vitals as above well nourished; no acute distress and not ill appearing Neck: trachea midline, no thyromegaly trachea midline; no tracheal deviation and no neck crepitus Respiratory: normal respiratory effort, lungs clear to auscultation Cardiovascular: Rate/Rhythm: regular rate and regular rhythm Heart Sounds: no click, no murmur and no cardiac rub Gastrointestinal (Abdomen): normal bowel sounds, soft, nontender, no hepatosplenomegaly Results & Data ([facility]) Vital Signs (Past 12 Hours) Vital Signs Temp Pulse Pulse Resp BP Pulse Ox 01/01/21 08:02 36.6 C 56 L 19 139/82 95 01/01/21 04:42 36.6 C 56 L 18 151/85 H 92 01/01/21 00:00 49 L 12/31/20 23:54 36.6 C 54 L 20 123/85 96 Laboratory Results 01/01/21 01/01/21 12/30/20 Range/Units 06:45 06:45 10:55 WBC 10.69 (4.8-10.8) K/uL RBC 4.45 L (4.7-6.1) M/uL Hgb 13.5 L (14.0-18.0) g/dL Hct 41.0 L (42-52) % MCV 92.1 (80-100) fL MCH 30.3 (25-34) pg MCHC 32.9 (32-36) g/dL RDW Std Deviation 46.5 H (36.4-46.3) fL RDW Coeff of Meenakshi 13.7 (11.5-14.5) % Plt Count 101 L (130-400) K/uL MPV 13.0 H (7.4-10.4) fL Immature Gran % (Auto) 0.3 % Neut % (Auto) 87.3 % Lymph % (Auto) 4.2 % [place] % (Auto) 8.1 % Eos % (Auto) 0.1 % Baso % (Auto) 0.0 % Neut # (Auto) 9.33 H (1.4-6.5) K/uL Lymph # (Auto) 0.45 L (1.2-3.4) K/uL [place] # (Auto) 0.87 H (0.11-0.59) K/uL Eos # (Auto) 0.01 (0-0.5) K/uL Baso # (Auto) 0.00 (0-0.2) K/uL Immature Gran # (Auto) 0.03 H (0.00-0.02) K/uL Sodium 141 (136-145) mmol/L Potassium 4.1 (3.5-5.1) mmol/L Chloride 110 H (98-107) mmol/L Carbon Dioxide 24 (21-32) mmol/L Anion Gap 6.0 (3-11) BUN 16 (7-18) mg/dl Creatinine 0.99 (0.6-1.4) mg/dl Est Cr Clr Drug Dosing 65.8 ml/min Est GFR ( Amer) 87.8 ml/min Est GFR (Non-Af Amer) 75.8 ml/min BUN/Creatinine Ratio 15.8 (10-20) Glucose 124 H (70-99) mg/dl Calcium 8.2 L (8.5-10.1) mg/dl Total Bilirubin 1.1 H D (0.2-1) mg/dl AST 123 H (15-37) U/L ALT 228 H (12-78) U/L Alkaline Phosphatase 71 (45-117) U/L Total Protein 6.3 L (6.4-8.2) gm/dl Albumin 2.8 L (3.4-5.0) gm/dl Globulin 3.5 (2.5-4.0) gm/dl Albumin/Globulin Ratio 0.8 L (0.9-2) Hepatitis C Ab Screen Neg (Neg)
--- NOTE | 2021-01-01 14:59 | Hospitalist Progress Note ---
Date of Service January 01, 2021 Assessment & Plan (1) Cholangitis: Likely has cholangitis Presented with weakness, fever and chills and abdominal discomfort Has been on intravenous Zosyn and getting intravenous fluid Will monitor LFTs Blood culture is growing gram-negative bacilli-E. coli and is pansensitive Clinically better and will continue current antibiotic Appreciate GI and surgery input and recommendation Status post ERCP, stone extraction and stent placement Will need to have broad-spectrum antibiotic for 2 weeks in total and repeat ERCP in 6 weeks to remove the stent as per GI Remains stable following the procedure and has been tolerating diet Will be n.p.o. after midnight for cholecystectomy tomorrow (2) Cholelithiasis: Patient is 70-year-old male with PMH HTN, HLD, GERD, stroke, BPH, h/o DVT and is on Eliquis presented to ER with c/o abdominal pain, chills, sweats this morning. Vomited x1 in ER. Denies diarrhea No acute cholecystitis on imaging studies, ultrasound, CT scan and MRCP In ER T: 38.8C, P: 136, R: 18, BP: 121/74, 90% on room air. No leukocytosis, Lactic acid: 3.9, procalcitonin: 1.4, T bili: 1.7, AST: 549, ALT: 429, alk phos: 104 CT ABDOMEN/PELVIS: 1. No bowel obstruction or bowel wall thickening. Normal appendix. 2. 2.5 cm intraluminal filling defect within the gallbladder neck is suggestive of cholelithiasis versus tumefactive sludge. No CT evidence of acute cholecystitis. Findings could be correlated with ultrasound if of further clinical concern. 3. Nonobstructing left nephrolithiasis 4. Mild colonic diverticulosis. 5. Hepatic steatosis. GALLBLADDER ULTRASOUND: 1. Mild gallbladder distention with cholelithiasis. No sonographic evidence of acute cholecystitis 2. No biliary ductal dilation. 3. Hepatic steatosis. CXR: Mild linear right lung base opacities favor atelectasis. -Appreciate GI input and recommendation. 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 Patient is unsure if it was provoked or unprovoked DVT On Eliquis -Eliquis is on hold for surgery tomorrow (7) BPH (benign prostatic hyperplasia): -continue tamsulosin (8) Stroke: Some residual right sided weakness DVT Prophylaxis -Eliquis on hold -Heparin SQ Full Code as per discussion with pt Follows with Dr Orosco for routine care Admission and Anticipated Discharge Date Admission Date: December 30, 2020 Subjective 12/31/2020 The patient was seen and examined in telemetry unit He denies any significant symptoms except some abdominal discomfort without nausea and or vomiting He denies any fever and/or chills 01/01/2021 The patient was seen and examined in telemetry unit He has been feeling much better and denies any fever and/or chills No more abdominal pain, nausea and or vomiting He will have laparoscopic cholecystectomy tomorrow Review of Systems Review of Systems: All systems reviewed and are unremarkable except as noted below Neurologic: + generalized weakness Physical Exam Physical Exam: Lying in bed comfortably Constitutional: well developed, well nourished and + ill appearing Eyes: PERRL, conjunctivae normal, anicteric sclerae ENMT: external ear and nose normal, oropharynx normal Neck: trachea midline, no thyromegaly Respiratory: no respiratory distress Auscultation: lungs clear to auscultation bilaterally; no crackles Cardiovascular: Rate/Rhythm: regular rate and regular rhythm Heart Sounds: no murmur Extremities: no edema Gastrointestinal (Abdomen): Inspection/Auscultation: + abdomen distended and normal bowel sounds Percussion/Palpation: + abdomen tender (Discomfort but no tenderness) and abdomen soft Musculoskeletal: No acute arthritis in any joint Neurologic: Alert, awake and oriented x3. No focal sensory and motor deficit appreciated Psychiatric: A+Ox3, euthymic affect Lymphatic: no cervical or axillary lymphadenopathy Results & Data Results & Data ([facility]) Vital Signs (Past 12 Hours) Vital Signs Temp Pulse Resp BP Pulse Ox 01/01/21 11:58 36.6 C 55 L 16 139/82 95 01/01/21 08:02 36.6 C 56 L 19 139/82 95 01/01/21 04:42 36.6 C 56 L 18 151/85 H 92 Laboratory Results Short CBC 01/01/21 Range/Units 06:45 WBC 10.69 (4.8-10.8) K/uL Hgb 13.5 L (14.0-18.0) g/dL Hct 41.0 L (42-52) % Plt Count 101 L (130-400) K/uL BMP 01/01/21 06:45 Sodium 141 Potassium 4.1 Chloride 110 H Carbon Dioxide 24 BUN 16 Creatinine 0.99 Glucose 124 H Calcium 8.2 L Liver Function 01/01/21 Range/Units 06:45 Total Bilirubin 1.1 H D (0.2-1) mg/dl AST 123 H (15-37) U/L ALT 228 H (12-78) U/L Alkaline Phosphatase 71 (45-117) U/L Albumin 2.8 L (3.4-5.0) gm/dl Medications Administered Current Inpatient Medications Gabapentin (Gabapentin 300 Mg Cap) 300 mg PO HS PRN PRN Reason: Restless Leg(S) Stop: 01/29/21 16:00 Heparin Sodium (Porcine) (Heparin Sod 5,000 Unit/0.5 Ml Vial) 5,000 units SQ Q8 YOSELIN Stop: 01/29/21 21:59 Last Admin: 01/01/21 05:53 Dose: 5,000 units Documented by: Hydromorphone HCl (Hydromorphone Inj 0.5 Mg/0.5 Ml Syr) 0.5 mg IV Q6H PRN PRN Reason: Pain Stop: 01/13/21 16:00 Piperacillin Sod/Tazobactam (Sod 3.375 gm/ Dextrose) 115 mls @ 28.75 mls/hr IV Q8H YOSELIN; Protocol Stop: 01/09/21 21:59 Last Admin: 01/01/21 14:30 Dose: 28.8 mls/hr Documented by: Miscellaneous Information (Piperacill/Tazobac Consult Active) 1 ea N/A UD PRN PRN Reason: Consult Stop: 01/29/21 15:59 Ondansetron HCl (Ondansetron Inj 2 Mg/Ml 2 Ml Vial) 4 mg IV Q6H PRN PRN Reason: Nausea Stop: 01/29/21 15:59 Tamsulosin HCl (Tamsulosin Hcl 0.4 Mg Cap) 0.8 mg PO [facility] Stop: 01/29/21 20:59 Last Admin: 12/31/20 21:51 Dose: 0.8 mg Documented by:
--- NOTE | 2021-01-01 17:03 | Anesthesiology Consultation ---
Date of Service January 01, 2021 Assessment & Plan (1) Encounter for pre-operative examination: Chart Review Chart Review: community outreach director initiated History Surgery Operation Date: 12/31/20 12:45 Proposed Procedures p Endoscopic Retrograde Cholangiopancreato - Ferny Walters DO Operation Date: 01/02/21 10:00 Proposed Procedures p Laparoscopic Cholecystectomy, Possible Open, Possible Ineroperative Choleangiogram - Sam Nguyen DO Height/Weight Height: 5 ft 6 in Weight: 76.8 kg Allergies Allergy/AdvReac Type Severity Reaction Status Date / Time No Known Allergies Allergy Unverified 12/30/20 12:37 Medications Home Medications Medication Instructions Recorded Confirmed Last Taken apixaban [Eliquis] 5 mg PO BID 12/30/20 12/30/20 12/30/20 docusate sodium [Colace] 100 mg PO BID PRN 12/30/20 12/30/20 Unknown gabapentin [Neurontin] 300 - 600 mg PO HS PRN 12/30/20 12/30/20 Unknown lisinopril [Zestril] 10 mg PO QAM 12/30/20 12/30/20 12/30/20 simvastatin [Zocor] 20 mg PO HS 12/30/20 12/30/20 12/29/20 tamsulosin [Flomax] 0.8 mg PO HS 12/30/20 12/30/20 12/29/20 Active Medications Generic Name Dose Route Start Last Admin Trade Name Freq PRN Reason Stop Dose Admin Heparin Sodium (Porcine) 5,000 units 12/30/20 22:00 01/01/21 15:46 Heparin Sod 5,000 Unit/0.5 Ml Vial SQ 01/29/21 21:59 Not Given Q8 YOSELIN Piperacillin Sod/Tazobactam 115 mls @ 28.75 mls/hr 12/30/20 22:00 01/01/21 14:30 Sod 3.375 gm/ Dextrose IV 01/09/21 21:59 28.8 mls/hr Q8H YOSELIN Administration Protocol Tamsulosin HCl 0.8 mg 12/30/20 21:00 12/31/20 21:51 Tamsulosin Hcl 0.4 Mg Cap PO 01/29/21 20:59 0.8 mg HS YOSELIN Administration NPO Date Last Intake of Fluids: 12/30/20 Time Last Intake of Fluids: 20:00 Date Last Intake of Solids: 12/30/20 Time Last Intake of Solids: 20:00 Past Medical History Medical History BPH (benign prostatic hyperplasia) GERD (gastroesophageal reflux disease) History of DVT (deep vein thrombosis) HLD (hyperlipidemia) HTN (hypertension) Incomplete right bundle branch block Stroke Past Family History Family History Mother Cancer stomach Sister Cancer stomach Father Stroke Past Surgical History Surgical History History of colonoscopy 2017-diverticulosis Social History Smoking Status: Former smoker Hx Alcohol Use: No Hx Substance Use: No Physical Exam Vital Signs Last Vital Signs Temp 97.7 F 01/01/21 15:53 Pulse 53 L 01/01/21 15:53 Resp 18 01/01/21 15:53 BP 146/87 H 01/01/21 15:53 Pulse Ox 95 01/01/21 15:53 Testing Laboratory Results 01/01/21 06:45 01/01/21 06:45 PT 10.7 Seconds (9.0-12.0) 12/30/20 10:55 INR 1.1 (0.9-1.1) 12/30/20 10:55 APTT 20.9 Seconds (21.0-31.0) L 12/30/20 10:55 Urine Color Dark Yellow 12/30/20 11:25 Urine Appearance Clear (Clear) 12/30/20 11:25 Urine pH 5.5 (4.5-7.5) 12/30/20 11:25 Ur Specific [place] 1.019 (1.000-1.030) 12/30/20 11:25 Urine Protein Negative (Negative) 12/30/20 11:25 Urine Glucose (UA) Negative (Negative) 12/30/20 11:25 Urine Ketones Trace (Negative) H 12/30/20 11:25 Urine Nitrite Negative (Negative) 12/30/20 11:25 Ur Leukocyte Esterase Negative (Negative) 12/30/20 11:25 12/30/20 10:55 Aerobic Blood Culture - Final Blood Escherichia coli Anaerobic Blood Culture - Final Escherichia coli 12/30/20 10:55 Aerobic Blood Culture - Final Blood Escherichia coli Anaerobic Blood Culture - Final Escherichia coli Laboratory Tests 12/30/20 11:33 SARS-CoV-2 (PCR) NEGATIVE Electrocardiogram Findings: + NSST changes, + RBBB (incomplete) and + ST @ (110) Chest X-Ray Date: 12/30/20 XR chest 1V portable HISTORY: 70 years-old Male SEPSIS acute sepsis COMPARISON: None TECHNIQUE: AP view of the chest FINDINGS: Cardiac silhouette is enlarged. Mild linear right lung base subsegmental opacities. No pneumothorax, pleural effusion or overt pulmonary edema. Degenerative changes of the shoulders and spine. IMPRESSION: Mild linear right lung base opacities favor atelectasis. ACT 112: Negative or not required by law. The above report was generated using voice recognition software. It may contain grammatical, syntax or spelling errors. Electronically signed by: Rickey Bear M.D. 12/30/2020 11:17 AM Dictated: 12/30/20 [id number]: 12/30/20 111
[2021-01-01] MEDS: TAMSULOSIN HCL 0.4 MG CAP PO SCH (20:37)
[2021-01-02] MEDS: PIPERACILLIN/TAZOBACTAM 3.375 GM in DEXTROSE 5% 100 ML IV SCH ×3 (05:46→21:39)
[2021-01-02] MEDS ORDERED: ROCURONIUM BROMIDE 10 MG/ML 5 ML VIAL IV ONE ×2 (08:32→11:22)
[2021-01-02] MEDS ORDERED: PROPOFOL IV EMULSION 10 MG/ML 20 ML VIAL IV ONE ×2 (08:32→11:22)
[2021-01-02] MEDS ORDERED: LIDOCAINE 2% 2 ML VIAL/AMP(20MG/ML) INFIL ONE ×2 (08:32→11:22)
[2021-01-02] MEDS ORDERED: ONDANSETRON INJ 2 MG/ML 2 ML VIAL ONE ×2 (08:32→11:22)
[2021-01-02] MEDS ORDERED: fentaNYL citrate 100 MCG/2 ML VIAL ONE (08:32)
[2021-01-02] MEDS ORDERED: DEXAMETHASONE SOD INJ 4 MG/ML VIAL ONE ×2 (08:32→11:22)
[2021-01-02 09:09] LABS: Albumin Level 2.9 gm/dl (3.4-5.0); BUN Creatinine Ratio 12.1 (10-20); Bilirubin Direct 0.5 mg/dl (0-0.2); Calcium 8.2 mg/dl (8.5-10.1); Creatinine Clr Calc Pharmacy 62.1 ml/min; Est GFR (Non-African American) 77.7 ml/min; Potassium 3.9 mmol/L (3.5-5.1)
[2021-01-02 09:25] LABS: Basophils # (auto) 0.02 K/uL (0-0.2); Basophils % (auto) 0.3 %; Eosinophils # (auto) 0.12 K/uL (0-0.5); Eosinophils % (auto) 1.6 %; Hematocrit (blood only) 40.8 % (42-52); Hemoglobin 13.7 g/dL (14.0-18.0); Immature Granulocytes # (auto) 0.05 K/uL (0.00-0.02); Immature Granulocytes % (auto) 0.7 %; Lymphocytes # (auto) 0.89 K/uL (1.2-3.4); Lymphocytes % (auto) 11.8 %; Mean Corpuscular Hemoglobin 30.7 pg (25-34); Mean Corpuscular Hgb Conc 33.6 g/dL (32-36); Mean Corpuscular Volume 91.5 fL (80-100); Mean Platelet Volume 13.6 fL (7.4-10.4); Neutrophils # (auto) 5.54 K/uL (1.4-6.5); Neutrophils % (auto) 73.6 %; Platelet Count 115 K/uL (130-400); Platelet Estimate Decreased (Normal); RDW Coefficient of Variation 14.1 % (11.5-14.5); RDW Standard Deviation 47.2 fL (36.4-46.3); Red Blood Count 4.46 M/uL (4.7-6.1); White Blood Count 7.52 K/uL (4.8-10.8)
--- NOTE | 2021-01-02 09:50 | History & Physical Bridge Note ---
Date of Service January 02, 2021 History & Physical Bridge Note I have examined the patient, reviewed the History & Physical and in the interval since the performance of the History & Physical I have noted the following changes of clinical significance: no changes noted
[2021-01-02] MEDS ORDERED: ePHEDrine sulfate 50 MG/ML AMP IV PRN (10:07)
[2021-01-02] MEDS ORDERED: ONDANSETRON INJ 2 MG/ML 2 ML VIAL IV PRN (10:07)
[2021-01-02] MEDS ORDERED: ATROPINE SULFATE 0.1 MG/ML 10ML SYR IV PRN (10:07)
[2021-01-02] MEDS ORDERED: fentaNYL citrate 100 MCG/2 ML VIAL IV PRN (10:07)
[2021-01-02] MEDS ORDERED: HYDROmorphone INJ 2 MG/ML SYR/VIAL IV PRN (10:07)
[2021-01-02] MEDS ORDERED: BUPIVACAINE/EPINEPHRINE 0.5% MPF 1:200,000 30 ML VIAL ONE ×2 (10:55→11:08)
[2021-01-02] MEDS ORDERED: BUPIVACAINE 0.25% 30 ML VIAL ONE (11:08)
[2021-01-02] MEDS ORDERED: GLYCOPYRROLATE 0.2 MG/ML VIAL ONE (11:22)
[2021-01-02] MEDS ORDERED: LARYING-O-JET KIT (LTA) ONE (11:22)
[2021-01-02] MEDS ORDERED: NEOSTIGMINE METHYLSULFATE 1 MG/ML 10ML VIAL ONE (11:22)
--- NOTE | 2021-01-02 12:06 | Post Operative Brief Note ---
PG Immediate Post Op with CF Date of Surgery January 02, 2021 Pre & Post Diagnosis Operation Date: 01/02/21 10:00 Pre-Op Diagnosis: Cholangitis, Cholelithiasis Post-Op Diagnosis: Cholangitis, Cholelithiasis I identified the patient and participated in the time-out.: Yes Procedure Operation Date: 01/02/21 10:00 Actual Procedures p Laparoscopic Cholecystectomy - Sam Nguyen DO Surgeon Sam Nguyen DO Java Development Manager Дмитрий Berman PA-C Estimated Blood Loss 5 Findings Consistent with Post-Op Diagnosis Normal appearing gallbladder Specimens Specimen Description: A. Gallbladder and contents. Anesthesia Type General Complications None Disposition Accompanied Patient To Recovery: No
--- NOTE | 2021-01-02 12:09 | Operative Report ---
PG Post Operative Report Pre & Post Diagnosis Operation Date: 01/02/21 10:00 Pre-Op Diagnosis: Cholangitis, Cholelithiasis Post-Op Diagnosis: Cholangitis, Cholelithiasis I identified the patient and participated in the time-out.: Yes Procedure Operation Date: 01/02/21 10:00 Actual Procedures p Laparoscopic Cholecystectomy - Sam Nguyen DO Surgeon Sam Nguyen DO Complex Commercial Litigation Paralegal Дмитрий Berman PA-C Estimated Blood Loss 5 Findings Consistent with Post-Op Diagnosis Fluids see anesthesia record Specimens Gallbladder to pathology Drains None Anesthesia Type General Complications none None Disposition Accompanied Patient To Recovery: No Disposition: Recovery Room Indications 70 yo male with ascending cholangitis s/p ERCP Description of Procedure The patient was brought to the operating room and placed in the supine position with both arms extended. At this time he underwent general endotracheal anesthesia without any problems. He was given appropriate pre-operative antibiotics. His abdomen prepped and draped in the usual sterile fashion. A timeout was called, the procedure was verified as Laparoscopic cholecystectomy, possible open, possible intra-operative cholangiogram. Surgical, nursing and anesthesia teams agreed and the procedure was begun. After injection of 0.25% Marcaine with epinephrine, a supraumbilical vertical incision was made and carried down to the fascia using S-retractors. The abdominal wall was then elevated with towel clamps and abdomen entered using the Veress needle confirming position using the saline drop test. Pneumoperitoneum was established. 5mm trocar was placed. Laparoscope was introduced. No injury from entry into the abdomen was visualized after inspection of the abdomen. Three further ports were placed under direct visualization. One 11mm in the subxiphoid region and two 5mm in the RUQ. At this time the abdomen was inspected and the gallbladder identified. The gallbladder fundus was grasped and retracted cephalad. The gallbladder infundibulum was then grasped and retracted laterally. The cystic duct and cystic artery were then identified and skeletonized. The critical view of safety was obtained. They were both then clipped twice proximally and once distally and then divided using scissors. The gallbladder was then taken off of the liver bed using electrocautery and placed in an endocatch bag and removed from the subxiphoid port. The liver bed was then inspected and no bile leak or bleeding was evident. The subxiphoid port was then closed using 0-Vicryl using the suture passer. The trocars were then removed under direct visualization and no bleeding was present. Abdomen was desufflated. The skin was then closed using 4-0 Monocryl in a subcuticular fashion. Surgical glue was applied. Needle and sponge counts were correct x 2. At this time the patient was awoken from anesthesia and extubated having remained stable throughout the entire case. The patient was then transported to PACU in stable condition. The physician content assistant was present and scrubbed throughout the entire case. He was essential in positioning, prepping and draping the patient, retraction and exposure, driving the laparoscope, closure of the incisions and placement of the dressings. I attest to the content of the Intraoperative Record and any orders documented therein. Any exceptions are noted below.
--- NOTE | 2021-01-02 12:22 | Anesthesiology Progress Note ---
Date of Service January 02, 2021 Anesthesia Post Procedure Vital Signs Vital Signs: Temp Pulse Pulse Resp BP Pulse Ox 01/02/21 10:00 37.3 C 52 L 20 186/93 H 96 01/02/21 08:00 53 L 01/02/21 07:28 37.0 C 50 L 17 166/84 H 94 01/02/21 04:54 36.5 C 58 L 20 115/81 94 01/02/21 00:00 56 L 01/01/21 22:45 36.6 C 59 L 18 130/79 95 01/01/21 19:00 36.6 C 54 L 20 145/83 H 94 01/01/21 15:53 36.5 C 53 L 18 146/87 H 95 01/01/21 14:00 91 H Transfer of Care Handoff Completed per policy Notes Mental Status: alert / awake / arousable and participated in evaluation Patient Amnestic to Procedure: Yes Nausea / Vomiting: adequately controlled Pain: adequately controlled Airway Patency, RR, SpO2: stable & adequate BP & HR: stable & adequate Hydration State: stable & adequate Anesthetic Complications: no major complications apparent
[2021-01-02] MEDS ORDERED: HYDROmorphone INJ 0.5 MG/0.5 ML SYR IV PRN (13:08)
[2021-01-02] MEDS ORDERED: oxyCODONE HCL IR 5 MG TAB (IMMEDIATE RELEASE) PO PRN (13:08)
[2021-01-02] MEDS ORDERED: ACETAMINOPHEN 325 MG TAB PO PRN (13:08)
[2021-01-02] MEDS ORDERED: HYDROmorphone INJ 1 MG/ML SYRINGE IV PRN (13:08)
[2021-01-02] MEDS: HEPARIN SOD 5,000 UNIT/0.5 ML VIAL SQ SCH ×2 (14:57→21:40)
--- NOTE | 2021-01-02 18:46 | Hospitalist Progress Note ---
Date of Service January 02, 2021 Assessment & Plan (1) Cholangitis: (2) Cholelithiasis: Plan: (1) Cholangitis: Likely has cholangitis per Dr. Asif's notes: Presented with weakness, fever and chills and abdominal discomfort Blood culture: E. coli and is pansensitive Status post ERCP, stone extraction and stent placement Will need to have broad-spectrum antibiotic for 2 weeks in total and repeat ERCP in 6 weeks to remove the stent as per GI -- s/p Lap Sachin -- continue Zosyn ID consulted (2) Cholelithiasis: Patient is 70-year-old male with PMH HTN, HLD, GERD, stroke, BPH, h/o DVT and is on Eliquis presented to ER with c/o abdominal pain, chills, sweats this morning. Vomited x1 in ER. Denies diarrhea No acute cholecystitis on imaging studies, ultrasound, CT scan and MRCP In ER T: 38.8C, P: 136, R: 18, BP: 121/74, 90% on room air. No leukocytosis, Lactic acid: 3.9, procalcitonin: 1.4, T bili: 1.7, AST: 549, ALT: 429, alk phos: 104 CT ABDOMEN/PELVIS: 1. No bowel obstruction or bowel wall thickening. Normal appendix. 2. 2.5 cm intraluminal filling defect within the gallbladder neck is suggestive of cholelithiasis versus tumefactive sludge. No CT evidence of acute cholecystitis. Findings could be correlated with ultrasound if of further clinical concern. 3. Nonobstructing left nephrolithiasis 4. Mild colonic diverticulosis. 5. Hepatic steatosis. GALLBLADDER ULTRASOUND: 1. Mild gallbladder distention with cholelithiasis. No sonographic evidence of acute cholecystitis 2. No biliary ductal dilation. 3. Hepatic steatosis. CXR: Mild linear right lung base opacities favor atelectasis. 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 Patient is unsure if it was provoked or unprovoked DVT On Eliquis -Eliquis is on hold for surgery (7) BPH (benign prostatic hyperplasia): -continue tamsulosin (8) Stroke: Some residual right sided weakness DVT Prophylaxis -Eliquis on hold -Heparin SQ Plan: PT/OT evaluation anticipate d/c home when medically stable Admission and Anticipated Discharge Date Admission Date: December 30, 2020 Subjective seen for acute cholangitis, etc seen resting in bed, comfortable, sleeping but easily awakened states he feels fine overall abdominal pain resolved with analgesic no nausea, chest pain, dyspnea, palpitations, dizziness no other symptoms Review of Systems Review of Systems: all negative except above Physical Exam Physical Exam: General- oriented x 3, not in distress, speaks in sentences with no effort or accessory muscle use Head- atraumatic Eyes- PERRL, EOMI, anicteric ENT- oropharynx clear Neck- supple, no JVD, no adenopathy, no thyromegaly; carotids +2/2, no bruits appreciated Lungs- clear to auscultation bilaterally, no rales/wheezes Heart- normal rate, regular rhythm; no murmur, no gallop, no rub appreciated Abdomen- normal bowel sounds, nondistended, soft, nontender, no masses or hepatosplenomegaly lap sachin sites: no bleeding, discharge Extremities- no pretibial edema, no calf tenderness; peripheral pulses intact Neuro- alert, oriented x 3; CN 2-12 grossly intact; motor 5/5 bilaterally;sensation 100% on all extremities; no other gross focal neurologic deficits Skin- warm & dry Results & Data Results & Data ([facility]) Vital Signs (Past 12 Hours) Vital Signs Temp Pulse Pulse Resp BP BP Pulse Ox 01/02/21 15:02 36.9 C 58 L 17 165/92 H 96 01/02/21 15:00 57 L 01/02/21 13:15 58 L 14 95 01/02/21 13:10 55 L 14 88 L 01/02/21 13:00 37.1 C 55 L 14 158/93 H 90 01/02/21 12:40 37.0 C 68 16 167/94 H 92 01/02/21 12:30 65 16 167/99 H 94 01/02/21 12:20 75 15 160/93 H 97 01/02/21 12:13 36.4 C L 83 10 L 133/98 96 01/02/21 10:00 37.3 C 52 L 20 186/93 H 96 01/02/21 08:00 53 L 01/02/21 07:28 37.0 C 50 L 17 166/84 H 94 Laboratory Results all noted and reviewed including below
[2021-01-02] MEDS: TAMSULOSIN HCL 0.4 MG CAP PO SCH (21:39)
[2021-01-03] MEDS: oxyCODONE HCL IR 5 MG TAB (IMMEDIATE RELEASE) PO PRN ×2 (04:23→12:24)
[2021-01-03] MEDS: PIPERACILLIN/TAZOBACTAM 3.375 GM in DEXTROSE 5% 100 ML IV SCH ×3 (06:15→22:38)
[2021-01-03] MEDS: HEPARIN SOD 5,000 UNIT/0.5 ML VIAL SQ SCH ×3 (06:15→22:39)
[2021-01-03 07:45] LABS: Albumin Level 2.8 gm/dl (3.4-5.0); BUN Creatinine Ratio 13.9 (10-20); Bilirubin Direct 0.3 mg/dl (0-0.2); Bilirubin,Total 0.7 mg/dl (0.2-1); Calcium 8.4 mg/dl (8.5-10.1); Creatinine Clr Calc Pharmacy 82.6 ml/min; Est GFR (Non-African American) 89.7 ml/min; Potassium 3.8 mmol/L (3.5-5.1); Total Protein 6.6 gm/dl (6.4-8.2)
[2021-01-03 07:59] LABS: Hematocrit (blood only) 43.2 % (42-52); Hemoglobin 13.9 g/dL (14.0-18.0); Mean Corpuscular Hgb Conc 32.2 g/dL (32-36); Mean Corpuscular Volume 93.3 fL (80-100); Mean Platelet Volume 13.1 fL (7.4-10.4); Platelet Count 123 K/uL (130-400); RDW Standard Deviation 47.8 fL (36.4-46.3); Red Blood Count 4.63 M/uL (4.7-6.1); White Blood Count 10.12 K/uL (4.8-10.8)
[2021-01-03 08:01] LABS: Basophils # (auto) 0.01 K/uL (0-0.2); Basophils % (auto) 0.1 %; Eosinophils # (auto) 0.03 K/uL (0-0.5); Eosinophils % (auto) 0.3 %; Giant Platelets 1+; Immature Granulocytes # (auto) 0.07 K/uL (0.00-0.02); Immature Granulocytes % (auto) 0.7 %; Lymphocytes # (auto) 1.12 K/uL (1.2-3.4); Lymphocytes % (auto) 11.1 %; Monocytes % (auto) 11.9 %; Neutrophils # (auto) 7.69 K/uL (1.4-6.5); Neutrophils % (auto) 75.9 %; Platelet Estimate Decreased (Normal)
--- NOTE | 2021-01-03 08:52 | Surgery Progress Note ---
Date of Service January 03, 2021 Assessment & Plan (1) Ascending cholangitis: Plan: POD#1 lap sachin WBC 10, patient afebrile. Hbg 13, LFTs downtrending--> Tb: 0.7, AST: 59, ALT: 156 Patient denies any abdominal pain/nausea/vomiting Will trial advancing diet to regular today From our standpoint patient could resume eliquis this evening If tolerates diet and pain remains well controlled he could be discharged to home later today with plans to follow up in clinic within 1-2 weeks. Continue course of abx per GI recommendations Admission and Anticipated Discharge Date Admission Date: December 30, 2020 Subjective Patient seen resting in bed. Offers no complaints. Denies abdominal pain, nausea/vomiting. Tolerating clears. Physical Exam Physical Exam: awake/alert Gastrointestinal (Abdomen): Abdomen is mildly distended. It is otherwise nontender. Surgical dressings are dry and intact with old blood shadowing. Results & Data ([facility]) Vital Signs (Past 12 Hours) Vital Signs Temp Pulse Pulse Pulse Resp BP Pulse Ox 01/03/21 07:35 36.9 C 65 17 134/78 95 01/03/21 04:00 56 L 01/02/21 23:41 36.9 C 57 L 20 133/80 96 PG Care Time/CCT Total # of Minutes Spent Total Time Spent with Patient: Total time spent is greater than 50% in coordination of care (as documented) at patient's floor/unit and/or counseling patient: Coding Level of Care Code None Diagnoses Ascending cholangitis K83.09
--- NOTE | 2021-01-03 16:31 | Hospitalist Progress Note ---
Date of Service January 03, 2021 Assessment & Plan (1) Cholangitis: (2) Cholelithiasis: Plan: (1) acute cholangitis with E. coli bacteremia per Dr. Asif's notes: Presented with weakness, fever and chills and abdominal discomfort Blood culture: E. coli and is pansensitive Status post ERCP, stone extraction and stent placement Will need to have broad-spectrum antibiotic for 2 weeks in total and repeat ERCP in 6 weeks to remove the stent as per GI -- s/p Lap Nurys --Stable overall -- continue Zosyn ID consulted, awaiting antibiotic recommendations (2) Cholelithiasis: Patient is 70-year-old male with PMH HTN, HLD, GERD, stroke, BPH, h/o DVT and is on Eliquis presented to ER with c/o abdominal pain, chills, sweats this morning. Vomited x1 in ER. Denies diarrhea No acute cholecystitis on imaging studies, ultrasound, CT scan and MRCP In ER T: 38.8C, P: 136, R: 18, BP: 121/74, 90% on room air. No leukocytosis, Lactic acid: 3.9, procalcitonin: 1.4, T bili: 1.7, AST: 549, ALT: 429, alk phos: 104 CT ABDOMEN/PELVIS: 1. No bowel obstruction or bowel wall thickening. Normal appendix. 2. 2.5 cm intraluminal filling defect within the gallbladder neck is suggestive of cholelithiasis versus tumefactive sludge. No CT evidence of acute cholecystitis. Findings could be correlated with ultrasound if of further clinical concern. 3. Nonobstructing left nephrolithiasis 4. Mild colonic diverticulosis. 5. Hepatic steatosis. GALLBLADDER ULTRASOUND: 1. Mild gallbladder distention with cholelithiasis. No sonographic evidence of acute cholecystitis 2. No biliary ductal dilation. 3. Hepatic steatosis. CXR: Mild linear right lung base opacities favor atelectasis. 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 Patient is unsure if it was provoked or unprovoked DVT On Eliquis -Resume Eliquis tomorrow per GI service (7) BPH (benign prostatic hyperplasia): -continue tamsulosin (8) Stroke: Some residual right sided weakness DVT Prophylaxis -Eliquis on hold -Heparin SQ Plan: PT/OT evaluation anticipate d/c home when medically stable Admission and Anticipated Discharge Date Admission Date: December 30, 2020 Subjective Follow-up for acute cholangitis, etc. Seen resting in chair, comfortable, not in distress States abdominal pain is mild soreness, but no kris pain No BMs today No nausea vomiting, fevers or chills Denies chest pain, shortness of breath, dizziness, operations No other symptoms Review of Systems Review of Systems: Reviewed, negative except for above Physical Exam Physical Exam: General- oriented x 3, not in distress, speaks in sentences with no effort or accessory muscle use Eyes- anicteric Neck- no JVD Lungs- clear breath sounds bilaterally, no rales/wheezes Heart- normal rate, regular rhythm; no murmurs Abdomen- normal bowel sounds, nondistended, soft, nontender Laparoscopic cholecystectomy sites: No discharge, no bleeding Extremities- no pretibial edema, no calf tenderness Neuro- alert, oriented x 3; no gross focal neurologic deficits Skin- warm & dry Results & Data Results & Data ([facility]) Vital Signs (Past 12 Hours) Vital Signs Temp Pulse Pulse Resp BP BP Pulse Ox 01/03/21 15:42 37.4 C 71 17 130/88 92 01/03/21 11:13 37 C 66 18 138/88 92 01/03/21 08:00 60 01/03/21 07:35 36.9 C 65 17 134/78 95 all noted and reviewed including below
[2021-01-03] MEDS: TAMSULOSIN HCL 0.4 MG CAP PO SCH (21:08)
[2021-01-04] MEDS: HEPARIN SOD 5,000 UNIT/0.5 ML VIAL SQ SCH (05:30)
[2021-01-04] MEDS: PIPERACILLIN/TAZOBACTAM 3.375 GM in DEXTROSE 5% 100 ML IV SCH (05:31)
[2021-01-04 07:58] LABS: Basophils # (auto) 0.04 K/uL (0-0.2); Basophils % (auto) 0.4 %; Eosinophils % (auto) 1.1 %; Hematocrit (blood only) 46.3 % (42-52); Hemoglobin 15.2 g/dL (14.0-18.0); Immature Granulocytes # (auto) 0.09 K/uL (0.00-0.02); Lymphocytes # (auto) 1.28 K/uL (1.2-3.4); Lymphocytes % (auto) 13.7 %; Mean Corpuscular Hemoglobin 30.6 pg (25-34); Mean Corpuscular Hgb Conc 32.8 g/dL (32-36); Mean Corpuscular Volume 93.2 fL (80-100); Mean Platelet Volume 12.7 fL (7.4-10.4); Monocytes # (auto) 1.16 K/uL (0.11-0.59); Monocytes % (auto) 12.4 %; Neutrophils # (auto) 6.65 K/uL (1.4-6.5); Neutrophils % (auto) 71.4 %; Platelet Count 150 K/uL (130-400); RDW Standard Deviation 47.7 fL (36.4-46.3); Red Blood Count 4.97 M/uL (4.7-6.1); White Blood Count 9.32 K/uL (4.8-10.8)
--- NOTE | 2021-01-04 08:00 | Surgery Progress Note ---
Date of Service January 04, 2021 Assessment & Plan (1) Ascending cholangitis: Plan: POD#2 lap sachin Patient clinically doing well. Afebrile, VSS. Denies belly pain, n/v. Tolerating a regular diet Labs are pending, an ID consult has been ordered for abx guidance/recs for home Pt can be discharged from our standpoint when cleared by medicine. F/U in clinic with Dr. Nguyen in 1-2 weeks Admission and Anticipated Discharge Date Admission Date: December 30, 2020 Subjective Patient says he is feeling well this AM. Denies abdominal pain, nausea/vomiting. Tolerating a regular diet. Physical Exam Physical Exam: awake/alert, sitting up in bed Gastrointestinal (Abdomen): Inspection/Auscultation: + abdomen distended (improved somewhat from yesterday) Percussion/Palpation: abdomen soft; abdomen nontender Results & Data ([facility]) Vital Signs (Past 12 Hours) Vital Signs Temp Pulse Pulse Resp BP Pulse Ox 01/04/21 04:28 37.1 C 62 18 169/91 H 90 01/04/21 02:32 59 L 01/03/21 23:05 37.0 C 60 18 138/96 91 PG Care Time/CCT Total # of Minutes Spent Total Time Spent with Patient: Total time spent is greater than 50% in coordination of care (as documented) at patient's floor/unit and/or counseling patient: Coding Level of Care Code None Diagnoses Ascending cholangitis K83.09
[2021-01-04] MEDS ORDERED: POLYETHYLENE (MIRALAX) 17 GM PACK PO PRN (08:23)
[2021-01-04] MEDS ORDERED: MAGNESIUM HYDROXIDE SUSP 30 ML UDC PO PRN (08:23)
[2021-01-04 08:27] LABS: BUN Creatinine Ratio 16.6 (10-20); Calcium 8.8 mg/dl (8.5-10.1); Creatinine Clr Calc Pharmacy 72.6 ml/min; Est GFR (African American) 101.9 ml/min; Est GFR (Non-African American) 87.9 ml/min; Potassium 3.5 mmol/L (3.5-5.1)
[2021-01-04] MEDS ORDERED: lisinopril 10 MG TAB PO SCH (09:00)
[2021-01-04] MEDS ORDERED: APIXABAN 5 MG TABLET PO SCH (09:00)
[2021-01-04] MEDS: AMOXICILLIN 500 MG CAP PO SCH ×2 (09:29→14:29)
--- NOTE | 2021-01-04 13:46 | Hospitalist Progress Note ---
Date of Service January 04, 2021 Assessment & Plan (1) Cholangitis: (2) Cholelithiasis: Plan: (1) Acute cholangitis with E. coli bacteremia per Dr. Asif's notes: Presented with weakness, fever and chills and abdominal discomfort Blood culture: E. coli and is pansensitive Status post ERCP, stone extraction and stent placement s/p Lap Cholecystectomy --remained Stable overall -- received Zosyn IV x 5 days -- [facility] MARTINEZ consulted, recommend Amoxicillin 500mg TID x 5 more days to complete 10 day course repeat blood cultures drawn 01/03/21 pending, please follow up --Will need repeat ERCP in 6 weeks to remove the stent as per GI ff up with Gen Surg in 1 week (2) Cholelithiasis: per Dr. Asif's notes: Patient is 70-year-old male with PMH HTN, HLD, GERD, stroke, BPH, h/o DVT and is on Eliquis presented to ER with c/o abdominal pain, chills, sweats this morning. Vomited x1 in ER. Denies diarrhea No acute cholecystitis on imaging studies, ultrasound, CT scan and MRCP In ER T: 38.8C, P: 136, R: 18, BP: 121/74, 90% on room air. No leukocytosis, Lactic acid: 3.9, procalcitonin: 1.4, T bili: 1.7, AST: 549, ALT: 429, alk phos: 104 CT ABDOMEN/PELVIS: 1. No bowel obstruction or bowel wall thickening. Normal appendix. 2. 2.5 cm intraluminal filling defect within the gallbladder neck is suggestive of cholelithiasis versus tumefactive sludge. No CT evidence of acute cholecystitis. Findings could be correlated with ultrasound if of further clinical concern. 3. Nonobstructing left nephrolithiasis 4. Mild colonic diverticulosis. 5. Hepatic steatosis. GALLBLADDER ULTRASOUND: 1. Mild gallbladder distention with cholelithiasis. No sonographic evidence of acute cholecystitis 2. No biliary ductal dilation. 3. Hepatic steatosis. CXR: Mild linear right lung base opacities favor atelectasis. --management per above (3) Hypomagnesemia: Magnesium: 1.6 -replaced (4) HTN (hypertension): -lisinopril (5) HLD (hyperlipidemia): -Statin (6) History of DVT (deep vein thrombosis): - On Eliquis (7) BPH (benign prostatic hyperplasia): -continue tamsulosin (8) Stroke: Some residual right sided weakness Plan: D/C home ff up as above plan of care discussed with patient in detail and at length all questions answered he is understanding, agreeable, comfortable with the plan of care Admission and Anticipated Discharge Date Admission Date: December 30, 2020 Subjective ff up for acute cholangitis etc seen resting in chair, comfortable states he feels fine overall no abdominal pain, nausea, tolerating diet well (+) BMs yesterday, (+) flatus no fever/chills, chest pain, dyspnea, dizziness no other symptoms states he is ready and would like to be discharged today Review of Systems Review of Systems: all reviewed, negative except above Physical Exam Physical Exam: General- oriented x 3, not in distress, speaks in sentences with no effort or accessory muscle use Eyes- anicteric Neck- no JVD Lungs- clear breath sounds bilaterally Heart- normal rate, regular rhythm; no murmurs Abdomen- normal bowel sounds, nondistended, soft, nontender lap sachin sites no bleeding, discharge Extremities- no pretibial edema, no calf tenderness Neuro- alert, oriented x 3; no gross focal neurologic deficits Skin- warm & dry Results & Data Results & Data ([facility]) Vital Signs (Past 12 Hours) Vital Signs Temp Pulse Pulse Resp BP Pulse Ox 01/04/21 11:00 36.8 C 75 18 109/65 01/04/21 08:00 36.8 C 94 H 18 136/74 01/04/21 04:28 37.1 C 62 18 169/91 H 90 01/04/21 02:32 59 L all noted and reviewed including below
--- NOTE | 2021-01-04 13:47 | Discharge Summary ---
Date of Service January 04, 2021 Admission HPI Per Admitting Provider Patient is 70-year-old male with PMH HTN, HLD, GERD, stroke, BPH, h/o DVT/PE and is on Eliquis presented to ER with c/o abdominal pain this morning. Patient states this morning woke up and had chills, sweats. Then he noted aching pain across his abdomen and presented to ER. In ER patient reports vomiting x1. Denies diarrhea. Denies hematemesis, melena, hematochezia, LYNN, dizziness, syncope, vision changes, neck pain, CP, SOB, orthopnea, palpitations, cough, sore throat, choking, otalgia, rhinorrhea, paresthesias, weakness, extremity weakness, extremity edema, rashes, urinary symptoms. In ER patient found to be febrile at 38.8C, P: 136, R: 18, BP: 121/74, 90% on room air. In ER no leukocytosis, found to have elevated lactate, elevated procalcitonin, elevated T bili and liver functions. Ultrasound gallbladder:Mild gallbladder distention with cholelithiasis. No sonographic evidence of acute cholecystitis and no biliary ductal dilation. Was given 1 L NSS, 1 g Rocephin, Flagyl 500 mg IV, Zofran, 1 g Tylenol IV. Patient being admitted for further treatment and evaluation Admission Exam Per Admitting Provider General: no distress, obese Head: normocephalic, atraumatic Eyes: PERRL, EOM's intact, conjunctiva non-injected, anicteric ENT: normal inspection external ears, nose, mucous membranes mildly dry Neck: supple, trachea midline Lungs: clear, no respiratory distress, no wheezing/rhonchi/rales CV: tachycardia, rate 108, regular rhythm, no pretibial edema Abd: protuberant, normal BS, soft, + numbness to palpation RUQ, RLQ, LLQ without rebound or guarding Ext: no cyanosis, no erythema, no calf tenderness Neuro: A&O x 3, no focal deficits noted, normal affect Skin: Hot, dry Principal Diagnosis Acute Cholangitis Discharge Exam General- oriented x 3, not in distress, speaks in sentences with no effort or accessory muscle use Eyes- anicteric Neck- no JVD Lungs- clear breath sounds bilaterally Heart- normal rate, regular rhythm; no murmurs Abdomen- normal bowel sounds, nondistended, soft, nontender lap sachin sites no bleeding, discharge Extremities- no pretibial edema, no calf tenderness Neuro- alert, oriented x 3; no gross focal neurologic deficits Skin- warm & dry Discharge Data Allergies Allergy/AdvReac Type Severity Reaction Status Date / Time No Known Allergies Allergy Unverified 12/30/20 12:37 Consultations 12/30/20 13:48 ED Decision to Admit Stat 12/30/20 13:57 Consult General Surgery Stat 12/30/20 15:27 Consult Gastroenterology Routine 12/30/20 16:00 Consult Gastroenterology Routine Consult General Surgery Routine 01/02/21 08:26 Consult Infectious Diseases Routine Procedures Performed Operation Date: 12/31/20 12:45 Actual Procedures p Endoscopic Retrograde Cholangiopancreatography, bile duct stent placement - Ferny Walters DO Operation Date: 01/02/21 10:00 Actual Procedures p Laparoscopic Cholecystectomy - Sam Nguyen DO Ordered Studies 12/30/20 10:44 CT abd pelvis IV con only Stat 12/30/20 12:41 US gallbladder Stat 12/30/20 16:00 MR MRCP Urgent 12/31/20 14:30 FL ERCP biliary ductal Routine Hospital Course (1) Cholangitis: (2) Cholelithiasis: (1) Acute cholangitis with E. coli bacteremia per Dr. Asif's notes: Presented with weakness, fever and chills and abdominal discomfort Blood culture: E. coli and is pansensitive Status post ERCP, stone extraction and stent placement s/p Lap Cholecystectomy --remained Stable overall -- received Zosyn IV x 5 days -- Hermelindaer ID consulted, recommend Amoxicillin 500mg TID x 5 more days to complete 10 day course repeat blood cultures drawn 01/03/21 pending, please follow up --Will need repeat ERCP in 6 weeks to remove the stent as per GI ff up with Gen Surg in 1 week (2) Cholelithiasis: per Dr. Asif's notes: Patient is 70-year-old male with PMH HTN, HLD, GERD, stroke, BPH, h/o DVT and is on Eliquis presented to ER with c/o abdominal pain, chills, sweats this morning. Vomited x1 in ER. Denies diarrhea No acute cholecystitis on imaging studies, ultrasound, CT scan and MRCP In ER T: 38.8C, P: 136, R: 18, BP: 121/74, 90% on room air. No leukocytosis, Lactic acid: 3.9, procalcitonin: 1.4, T bili: 1.7, AST: 549, ALT: 429, alk phos: 104 CT ABDOMEN/PELVIS: 1. No bowel obstruction or bowel wall thickening. Normal appendix. 2. 2.5 cm intraluminal filling defect within the gallbladder neck is suggestive of cholelithiasis versus tumefactive sludge. No CT evidence of acute cholecystitis. Findings could be correlated with ultrasound if of further clinical concern. 3. Nonobstructing left nephrolithiasis 4. Mild colonic diverticulosis. 5. Hepatic steatosis. -- Coronary artery calcifications; Hepatic steatosis--> Further work up, management, and ff up as outpatient GALLBLADDER ULTRASOUND: 1. Mild gallbladder distention with cholelithiasis. No sonographic evidence of acute cholecystitis 2. No biliary ductal dilation. 3. Hepatic steatosis. CXR: Mild linear right lung base opacities favor atelectasis. --management per above (3) Hypomagnesemia: Magnesium: 1.6 -replaced (4) HTN (hypertension): -lisinopril (5) HLD (hyperlipidemia): -Statin (6) History of DVT (deep vein thrombosis): - On Eliquis (7) BPH (benign prostatic hyperplasia): -continue tamsulosin (8) Stroke: Some residual right sided weakness D/C home ff up as above plan of care discussed with patient in detail and at length all questions answered he is understanding, agreeable, comfortable with the plan of care Total Time Total Time Spent Total Time Spent (In Minutes): 40 minutes Discharge Plan Discharge Items Patient Disposition: Home - Self-Care Reason For Visit: CHOLANGITIS Discharge Diagnosis: ACUTE CHOLANGITIS GALLBLADDER STONE REMOVAL, STENT PLACEMENT Activity: Per Instructions section Lifting: No more than 10 pounds Bathing Comment: may shower; no soaking in tubs/pools Exercise/Sports: Wait until after follow-up appointment Driving/Machine Use: no driving while taking narcotics for pain Call non-emergency contact if: you have any medication questions, your symptoms worsen, your pain is not controlled, your pain is worsening, your pain is concerning for you, you have a fever, your temperature is above 101.5, your wound has increased redness, your wound has increased drainage and your wound pain has increased Follow-up/Referrals: Sam Nguyen DO [Physician] - (Please call to schedule follow up in clinic within 1-2 weeks) Ferny Walters DO [Physician] - Hilda Rebollar MD [Primary Care Provider] - (Date & Time 01/09/2021 11:20 AM Provider Crystal Patel MD Department Family Medicine [facility] ) Diet: Heart Healthy Addtl Attending Provider Instructions: You may remove your outer surgical dressings on 01/04/21. You will have small white bandages on underneath called steri-strips, you may shower with these on, they will tend to fall off on their own within 7-10 days. Your new medication is Amoxicillin- antibiotic for gallbladder infection. Please call Primary Care Physician or return to the ER immediately if with wors ening of symptoms, including abdominal pain, fever/chills, nausea/vomiting. Follow up with Primary Care Physician next week as scheduled above. Follow up with General Surgeon as scheduled above. Follow up with [facility] in 6 weeks for repeat ERCP to remove Biliary stent. Pending Studies at Discharge: Yes Studies:: Surgical pathology from Laparoscopic Cholecystectomy Final result of repeat Blood culture drawn in the hospital 01/03/21 Repeat ERCP c/o [facility] in 6 weeks Stand-Alone Forms: My [facility] [employer], Smoking Cessation Medications and DC Order Prescriptions: New amoxicillin 500 mg Capsule 500 mg PO TID Qty: 14 RF: 0 Continued simvastatin [Zocor] 40 mg Tablet 20 mg PO HS RF: 0 tamsulosin [Flomax] 0.4 mg Capsule 0.8 mg PO HS RF: 0 lisinopril [Zestril] 10 mg Tablet 10 mg PO QAM RF: 0 docusate sodium [Colace] 100 mg Capsule 100 mg PO BID PRN (Reason: Constipation) RF: 0 gabapentin [Neurontin] 300 mg Capsule 300 - 600 mg PO HS PRN (Reason: Restless Leg(S)) RF: 0 Eliquis 5 mg Tablet 5 mg PO BID RF: 0 Discharge Orders: Discharge Order (Routine); Ordered 01/04/21 Ordered By: Colby Luna Admission Data Admit Date/Time: 12/30/20 14:39 Attending Provider: Colby Luna Admit Provider: Derick Asif Primary Care Provider: Hilda Rebollar Other Providers: Sam Nguyen ; Ric Jackson ; Homero Reese ; Dreick Asif ; Dyllan Cox ; Breezy Holt ; Remigio Ryan I. ; Salinas Corbett II ; Yamileth Thakkar ; Jose G Che
== END 2021-01-04 15:51 | disposition home or self-care (01) | DRG 418 ==
LOC: ED 10:24 → 2E 14:39 → SUATTDRO 14:39 → 2E 15:35

== ENCOUNTER 2021-05-06 09:15 | Inpatient (IN) ==
[2021-05-06] MEDS ORDERED: SODIUM CHLORIDE 0.9% 1000ML 1,000 ML IV ONE (10:07)
--- NOTE | 2021-05-06 10:17 | Emergency Department Note ---
Impression & Plan COVID-19, Hypoxia ED Provider Note Name: KONG RICHARDSON Age: 71 Sex: M Arrives Via: Walk-In Informant: Patient, Son ED Provider: Glenroy Cabrera MD Chief Complaint: weakness Impression: As per Impressions Medical Decision Makin yr old male with history gerd, pe/dvt, htn, hyperlipidemia, bph arrives with 2 weeks worsening shortness fo breath, cough, weakness. Son with brief illness 2 weeks ago as well. Patient with hypoxia on arrival requiring NC O2. CXR concerning for viral process and Covid testing is positive. Given IV Steroids. Labs without significant abnormalities. He is not septic and on NC O2 he appears comfortable and no distress. Hospitalist consulted for further management. Prior Medical Record and Triage/Nursing Notes reviewed by Me Additional history obtained from chart Differentials:Reactive airway disease, pneumonia, pneumothorax, COPD, CHF, infections, cardiac ischemia, pulmonary embolism, musculoskeletal, gastrointestinal, as well as other pathologies. Vital Signs: reviewed and remarkable for hypoxia Interventions: Decadron 10mg IV Labs:Reviewed and remarkable for no significant abnormalities Imaging:See Below EKG:Per My Interpretation: Indication Shob: NSR 83 bpm, qtc 399. No Ectopy. No Ischemia. Compared to EKG 12/30/20, no significant changes. Consults:Consuelo Hospitalist Plan: Disposition:Hospitalization. Condition: Good History of Present Illness:71 yr old male arrives for evaluation of weakness. Patient with 2 weeks of cough, weakness, fatigue, and chills. Notes unable to get up for the last few days. No fevers, vomiting, nausea, chest pain, sob, syncope, abdominal pain, back pain, urinary/bowel symptoms, headache, leg swel ling rashes nor other symptoms. No medications taken for this. Associated with lack of appetite. nothing makes better nor worse. No recent abx. On Eliquis for previous PE/DVT. ROS: See above HPI for pertinent positives & negatives. A total of 10 systems reviewed and were otherwise negative. Past Medical History:See Below Past Surgical History:See Below Family History:See Below Social History:See Below Home Medications:See Below Allergies:NKDA Vitals:Blood Pressure: 13/83, Pulse 95, RR 20, T 36.8C, O2 90% on RA Physical Exam: GENERAL: Patient is tired/dehydrated appearing and in mild distress. EYES: No scleral icterus, unremarkable pupils. ENT: Mucous membranes moist, no nasal congestion. NECK: No masses appreciated, nomeningismus, trachea is midline. RESPIRATORY: No dyspnea. Clear to auscultation and equal bilaterally. No wheeze, no rhonchi. CARDIOVASCULAR: Regular rate and rhythm.No murmurs, rubs, gallops appreciated. GASTROINTESTINAL: Abdomen soft, non-tender, no peritonitis.Bowel sounds positive.No masses appreciated. BACK: No midline tenderness, no CVA tenderness EXTREMITIES: Normal motion all extremities, no cyanosis, no edema. NEUROLOGIC: Alert and oriented, no acute motor or sensory deficits, no focal weakness, cranial nerves grossly intact. SKIN: No rash, no jaundice, no diaphoresis. PSYCH: Appropriate GCS: 15 ED Course: Times/Reassessments: Stable, no distress though still requiring NC O2. Glenroy Cabrera MD Past Med/Surg History Medical History Ascending cholangitis BPH (benign prostatic hyperplasia) GERD (gastroesophageal reflux disease) History of CVA (cerebrovascular accident) History of DVT (deep vein thrombosis) HTN (hypertension) Incomplete right bundle branch block Surgical History History of colonoscopy 2017-diverticulosis Hx laparoscopic cholecystectomy (01/02/21) Laparoscopic Cholecystectomy Dr. 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 Required: No Beliefs That Will Affect Care: None Current Living Situation: Family Other Information That Helps Us Care for You: No Feels Safe at Home: Yes Safety Concerns: Feels Safe At This Time Assistive Devices: Oxygen - Continuous Allergies Allergies Allergy/AdvReac Type Severity Reaction Status Date / Time No Known Allergies Allergy Unverified 05/06/21 11:36 Home Meds Home Medications Medication Instructions Recorded Confirmed apixaban 5 mg tablet (Eliquis) 2.5 mg PO BID 12/30/20 05/06/21 docusate sodium 100 mg capsule 100 mg PO BID PRN 12/30/20 05/06/21 (Colace) gabapentin 300 mg capsule 300 - 600 mg PO HS PRN 12/30/20 05/06/21 (Neurontin) lisinopril 10 mg tablet (Zestril) 10 mg PO QAM 12/30/20 05/06/21 tamsulosin 0.4 mg capsule (Flomax) 0.8 mg PO HS 12/30/20 05/06/21 rosuvastatin 20 mg tablet 20 mg PO DAILY 05/06/21 05/06/21 Results & Data (ED) Vital Signs Vital Signs - 24 hr 05/06/21 10:41 05/06/21 12:02 Pulse Rate [Finger] 82 82 Respiratory Rate 24 20 Blood Pressure [Left Arm] 113/78 148/74 H Blood Pressure Mean [Left Arm] 89 98 Pulse Oximetry 96 98 Oxygen Delivery Method Nasal Cannula Nasal Cannula Oxygen Flow Rate 4 3 Laboratory Data Result diagrams: 05/07/21 05:43 05/07/21 05:43 Lab Results 05/06/21 05/06/21 05/06/21 Range/Units 10:45 10:45 10:50 WBC 9.80 (4.8-10.8) K/uL RBC 4.82 (4.7-6.1) M/uL Hgb 14.8 (14.0-18.0) g/dL Hct 44.0 (42-52) % MCV 91.3 (80-100) fL MCH 30.7 (25-34) pg MCHC 33.6 (32-36) g/dL RDW Std Deviation 45.4 (36.4-46.3) fL RDW Coeff of Meenakshi 13.6 (11.5-14.5) % Plt Count 121 L (130-400) K/uL MPV 12.1 H (7.4-10.4) fL Immature Gran % (Auto) 0.1 % Neut % (Auto) 89.7 % Lymph % (Auto) 5.1 % Howard % (Auto) 5.1 % Eos % (Auto) 0.0 % Baso % (Auto) 0.0 % Neut # (Auto) 8.79 H (1.4-6.5) K/uL Lymph # (Auto) 0.50 L (1.2-3.4) K/uL Howard # (Auto) 0.50 (0.11-0.59) K/uL Eos # (Auto) 0.00 (0-0.5) K/uL Baso # (Auto) 0.00 (0-0.2) K/uL Immature Gran # (Auto) 0.01 (0.00-0.02) K/uL Platelet Estimate Decreased L (Normal) Giant Platelets 1+ PT (9.0-12.0) Seconds INR (0.9-1.1) Sodium (136-145) mmol/L Potassium (3.5-5.1) mmol/L Chloride (98-107) mmol/L Carbon Dioxide (21-32) mmol/L Anion Gap (3-11) BUN (7-18) mg/dl Creatinine (0.6-1.4) mg/dl Est Cr Clr Drug Dosing ml/min Est GFR ( Amer) ml/min Est GFR (Non-Af Amer) ml/min BUN/Creatinine Ratio (10-20) Glucose (70-99) mg/dl Calcium (8.5-10.1) mg/dl Magnesium (1.8-2.4) mg/dl Total Bilirubin (0.2-1) mg/dl Direct Bilirubin (0-0.2) mg/dl AST (15-37) U/L ALT (12-78) U/L Alkaline Phosphatase (45-117) U/L Troponin I (0-0.045) ng/ml C-Reactive Protein (0-0.29) mg/dl Total Protein (6.4-8.2) gm/dl Albumin (3.4-5.0) gm/dl Lipase (73-393) U/L COVID-19 Eval Order Covid19 at [facility] SARS-CoV-2 (PCR) POSITIVE A* (Negative) 05/06/21 05/06/21 05/06/21 Range/Units 10:50 10:50 10:50 WBC (4.8-10.8) K/uL RBC (4.7-6.1) M/uL Hgb (14.0-18.0) g/dL Hct (42-52) % MCV (80-100) fL MCH (25-34) pg MCHC (32-36) g/dL RDW Std Deviation (36.4-46.3) fL RDW Coeff of Meenakshi (11.5-14.5) % Plt Count (130-400) K/uL MPV (7.4-10.4) fL Immature Gran % (Auto) % Neut % (Auto) % Lymph % (Auto) % Howard % (Auto) % Eos % (Auto) % Baso % (Auto) % Neut # (Auto) (1.4-6.5) K/uL Lymph # (Auto) (1.2-3.4) K/uL Howard # (Auto) (0.11-0.59) K/uL Eos # (Auto) (0-0.5) K/uL Baso # (Auto) (0-0.2) K/uL Immature Gran # (Auto) (0.00-0.02) K/uL Platelet Estimate (Normal) Giant Platelets PT 10.9 (9.0-12.0) Seconds INR 1.1 (0.9-1.1) Sodium 137 (136-145) mmol/L Potassium 4.3 (3.5-5.1) mmol/L Chloride 103 (98-107) mmol/L Carbon Dioxide 25 (21-32) mmol/L Anion Gap 9.0 (3-11) BUN 12 (7-18) mg/dl Creatinine 0.90 (0.6-1.4) mg/dl Est Cr Clr Drug Dosing 66.0 ml/min Est GFR ( Amer) 97.9 ml/min Est GFR (Non-Af Amer) 84.4 ml/min BUN/Creatinine Ratio 12.8 (10-20) Glucose 107 H (70-99) mg/dl Calcium 8.3 L (8.5-10.1) mg/dl Magnesium 2.2 (1.8-2.4) mg/dl Total Bilirubin 0.4 (0.2-1) mg/dl Direct Bilirubin 0.1 (0-0.2) mg/dl AST 53 H (15-37) U/L ALT 42 (12-78) U/L Alkaline Phosphatase 41 L (45-117) U/L Troponin I < 0.015 (0-0.045) ng/ml C-Reactive Protein 4.17 H (0-0.29) mg/dl Total Protein 7.1 (6.4-8.2) gm/dl Albumin 2.7 L (3.4-5.0) gm/dl Lipase 519 H (73-393) U/L COVID-19 Eval Order SARS-CoV-2 (PCR) (Negative) Administered Medications Albuterol (Albut/Ipratrop 3mg/0.5mg Neb 3 Ml Vial) 3 ml NEB Q4R YOSELIN Stop: 06/05/21 14:59 Last Admin: 05/07/21 07:36 Dose: 3 ml Documented by: [id number] Admin: 05/07/21 02:30 Dose: 3 ml Documented by: [id number] Admin: 05/06/21 22:23 Dose: 3 ml Documented by: [id number] Admin: 05/06/21 20:08 Dose: 3 ml Documented by: [id number] Admin: 05/06/21 15:32 Dose: 3 ml Documented by: [id number] Apixaban (Apixaban 2.5 Mg Tab) 2.5 mg PO BID YOSELIN Stop: 06/05/21 20:59 Last Admin: 05/07/21 09:00 Dose: 2.5 mg Documented by: [id number] Admin: 05/06/21 21:37 Dose: 2.5 mg Documented by: [id number] Dexamethasone 6 mg/ Syringe 1.5 mls @ 1 mls/min IV Q24H YOSELIN Stop: 06/06/21 08:59 Last Admin: 05/07/21 08:59 Dose: 1 mls/min Documented by: [id number] Lisinopril (Lisinopril 10 Mg Tab) 10 mg PO QAM YOSELIN Stop: 06/06/21 08:59 Last Admin: 05/07/21 09:00 Dose: 10 mg Documented by: [id number] Rosuvastatin Calcium (Rosuvastatin Calcium 20 Mg Tab) 20 mg PO DAILY YOSELIN Stop: 06/06/21 08:59 Last Admin: 05/07/21 09:00 Dose: 20 mg Documented by: [id number] Tamsulosin HCl (Tamsulosin Hcl 0.4 Mg Cap) 0.8 mg PO HS YOSELIN Stop: 06/05/21 20:59 Last Admin: 05/06/21 21:37 Dose: 0.8 mg Documented by: [id number] Discontinued Medications Dexamethasone Sodium Phosphate (DexamethasonePf 10 Mg/Ml Vial) 10 mg IV NOW ONE Stop: 05/06/21 11:55 Last Admin: 05/06/21 12:00 Dose: 10 mg Documented by: [id number] Furosemide (Furosemide Inj 20 Mg/2 Ml Vial) 20 mg IV ONE ONE Stop: 05/06/21 17:22 Last Admin: 05/06/21 17:38 Dose: 20 mg Documented by: [id number] Guaifenesin/Codeine Phosphate (Guaifenesin/Codeine 100mg/10mg 5ml Udc) 5 ml PO NOW ONE Stop: 05/06/21 17:23 Last Admin: 05/06/21 17:38 Dose: 5 ml Documented by: [id number] Sodium Chloride (Nss 1000ml) 1,000 mls @ 999 mls/hr IV .Q1H1M ONE Stop: 05/06/21 11:07 Last Infusion: 05/06/21 11:52 Dose: 0 mls/hr Documented by: [id number] Admin: 05/06/21 10:50 Dose: 999 mls/hr Documented by: [id number] Potassium Chloride (Potassium Chloride Crtab 20 Meq Tabcr) 40 meq PO NOW STA Stop: 05/07/21 08:39 Last Admin: 05/07/21 08:59 Dose: 40 meq Documented by: [id number] Imaging Data Radiologist's Impression: Chest X-Ray 05/06/21 10:07 XR chest 1V portable CLINICAL HISTORY: cough TECHNIQUE: Single frontal radiograph of the chest was obtained. Comparison: Comparison is made to chest one view 12/30/2020 FINDINGS: No lines and tubes are seen. The cardiomediastinal silhouette is normal. Bilateral lower lung predominant airspace opacities are seen. No evidence of pleural effusion or pneumothorax. IMPRESSION: Bilateral lower lung predominant airspace opacities which may represent atelectasis, pneumonia, and/or aspiration. ACT 112: Negative or not required by law. Electronically signed by: Wallace Alvarez M.D. 05/06/2021 10:[address] 05/06/21 10:[address] DOSE: 537.48 mGy.cm HISTORY: generalized weakness TECHNIQUE: Multiaxial CT images of the head were performed without the use of intravenous contrast. Automated exposure control was utilized for this study. A dose lowering technique was utilized adhering to the principles of ALARA. Comparison: None. Findings: Mild mucosal thickening within the ethmoid air cells and maxillary sinuses. The mastoid air cells are clear. The calvarium and skull base are intact. There is no mass, hematoma, midline shift, acute infarct. White matter hypodensity is nonspecific but suggestive of microvascular ischemic change. The ventricles and sulci demonstrate mild age-related involutional changes. Focal area of encephalomalacia within the left frontotemporal region consistent with an old left MCA territory infarct. Impression: 1. No acute intracranial abnormality. 2. Old left MCA territory infarct. ACT 112: Negative or not required by law. Electronically signed by: Marvin Basurto M.D. 05/06/2021 11:49 AM Discharge Plan Visit Data Chief Complaint: Flu Like Symptoms Stated Complaint: FLU ED Provider: Glenroy Cabrera Discharge Problem: COVID-19, Hypoxia Patient Disposition: Admitted As Inpatient Discharge Instructions Interventions: ED Discharge Assessment Last Done: 05/06/21 14:08
--- NOTE | 2021-05-06 10:32 | XRay Report ---
XR chest 1V portable CLINICAL HISTORY: cough TECHNIQUE: Single frontal radiograph of the chest was obtained. Comparison: Comparison is made to chest one view 12/30/2020 FINDINGS: No lines and tubes are seen. The cardiomediastinal silhouette is normal. Bilateral lower lung predomi nant airspace opacities are seen. No evidence of pleural effusion or pneumothorax. IMPRESSION: Bilateral lower lung predominant airspace opacities which may represent atelectasis, pneumonia, and/o r aspiration. ACT 112: Negative or not required by law. Electronically signed by: Wallace Alvarez M.D. 05/06/2021 10:31 AM
[2021-05-06 11:21] LABS: INR 1.1 (0.9-1.1); Prothrombin Time 10.9 Seconds (9.0-12.0)
[2021-05-06 11:30] LABS: Alanine Aminotransferase 42 U/L (12-78); Albumin Level 2.7 gm/dl (3.4-5.0); Alkaline Phosphatase 41 U/L (45-117); BUN Creatinine Ratio 12.8 (10-20); Bilirubin,Total 0.4 mg/dl (0.2-1); Blood Urea Nitrogen 12 mg/dl (7-18); Calcium 8.3 mg/dl (8.5-10.1); Carbon Dioxide 25 mmol/L (21-32); Chloride 103 mmol/L (98-107); Est GFR (African American) 97.9 ml/min; Est GFR (Non-African American) 84.4 ml/min; Glucose 107 mg/dl (70-99); Lipase 519 U/L (73-393); Total Protein 7.1 gm/dl (6.4-8.2); Troponin I < 0.015 ng/ml (0-0.045)
[2021-05-06 11:33] LABS: Potassium 4.3 mmol/L (3.5-5.1); Sodium 137 mmol/L (136-145)
[2021-05-06 11:46] LABS: Aspartate Aminotransferase 53 U/L (15-37); Giant Platelets 1+; Hemoglobin 14.8 g/dL (14.0-18.0); Immature Granulocytes # (auto) 0.01 K/uL (0.00-0.02); Immature Granulocytes % (auto) 0.1 %; Lymphocytes % (auto) 5.1 %; Magnesium 2.2 mg/dl (1.8-2.4); Mean Corpuscular Hemoglobin 30.7 pg (25-34); Mean Corpuscular Hgb Conc 33.6 g/dL (32-36); Mean Corpuscular Volume 91.3 fL (80-100); Mean Platelet Volume 12.1 fL (7.4-10.4); Monocytes % (auto) 5.1 %; Neutrophils # (auto) 8.79 K/uL (1.4-6.5); Neutrophils % (auto) 89.7 %; Platelet Count 121 K/uL (130-400); Platelet Estimate Decreased (Normal); RDW Coefficient of Variation 13.6 % (11.5-14.5); RDW Standard Deviation 45.4 fL (36.4-46.3); Red Blood Count 4.82 M/uL (4.7-6.1)
--- NOTE | 2021-05-06 11:50 | CT Scan Report ---
HEAD CT NONCONTRAST CT DOSE: 537.48 mGy.cm HISTORY: generalized weakness TECHNIQUE: Multiaxial CT images of the head were performed without the use of intravenous contrast. A utomated exposure control was utilized for this study. A dose lowering technique was utilized adheri ng to the principles of ALARA. Comparison: None. Findings: Mild mucosal thickening within the ethmoid air cells and maxillary sinuses. The mastoid air cells are clear. The calvarium and skull base are intact. There is no mass, hematoma, midline shift, acute infarct. White matter hypodensity is nonspecific but suggestive of microvascular ischemic norris ge. The ventricles and sulci demonstrate mild age-related involutional changes. Focal area of encepha lomalacia within the left frontotemporal region consistent with an old left MCA territory infarct. Impression: 1. No acute intracranial abnormality. 2. Old left MCA territory infarct. ACT 112: Negative or not required by law. Electronically signed by: Marvin Basurto M.D. 05/06/2021 11:49 AM
[2021-05-06 11:54] LABS: Bilirubin Direct 0.1 mg/dl (0-0.2)
[2021-05-06] MEDS ORDERED: dexAMETHasone**PF** 10 MG/ML VIAL IV ONE (11:54)
[2021-05-06] MEDS ORDERED: ACETAMINOPHEN 325 MG TAB PO PRN (14:26)
[2021-05-06] MEDS ORDERED: DOCUSATE SODIUM 100 MG CAP PO PRN (14:37)
[2021-05-06] MEDS: ALBUT/IPRATROP 3MG/0.5MG NEB 3 ML VIAL NEB SCH ×3 (15:32→22:23)
[2021-05-06 15:47] LABS: Appearance Urine Clear (Clear); Bacteria Urine Automated Negative (Negative); Bilirubin Urine Negative (Negative); Blood Urine 1+ (Negative); Color Urine Dark Yellow; Epithelial Cell Urine Auto 20-30 /lpf (0-5); Glucose Urine UA Negative (Negative); Ketones Urine 1+ (Negative); Leukocyte Esterase Urine Negative (Negative); Nitrite Urine Negative (Negative); Protein Urine 2+ (Negative); RBC Urine Automated 0-4 /hpf (0-4); Specific Gravity Urine 1.024 (1.000-1.030); Urobilinogen Urine Negative (Negative); pH Urine 5.5 (4.5-7.5)
--- NOTE | 2021-05-06 16:36 | Electrocardiogram Report ---
Test Reason : Blood Pressure : / mmHG Vent. Rate : 083 BPM Atrial Rate : 083 BPM P-R Int : 152 ms QRS Dur : 092 ms QT Int : 340 ms P-R-T Axes : 049 -28 006 degrees QTc Int : 399 ms Normal sinus rhythm Normal ECG When compared with ECG of 30-DEC-2020 11:32, Nonspecific T wave abnormality no longer evident in Anterior leads Confirmed by Tim Kuhn ([id number]) on 05/06/2021 4:36:06 PM Referred By: REFERRED SELF Confirmed By:Tim Kuhn
[2021-05-06] MEDS ORDERED: FUROSEMIDE INJ 20 MG/2 ML VIAL IV ONE (17:21)
[2021-05-06] MEDS ORDERED: guaiFENesin/CODEINE 100MG/10MG 5ML UDC PO ONE (17:22)
--- NOTE | 2021-05-06 18:45 | History & Physical Report ---
Date of Service May 06, 2021 Assessment & Plan (1) Acute respiratory failure with hypoxia: (2) Pneumonia due to COVID-19 virus: Plan: -Admit to [facility] -Patient presenting with reports of 2 weeks of generalized weakness, body aches, cough. -In the ED, patient hypoxic on room air at 88%, currently requiring 4 L of oxygen via nasal cannula during my exam. Patient tested positive for COVID-19 -CXR shows bibasilar opacities -S/p dexamethasone 10 mg IV in the ED, continue dexamethasone 6 mg IV daily -Given duration of symptoms, no indications for remdesivir -Continue supportive care with nebs, flutter valve, incentive spirometer, encourage self proning (3) HTN (hypertension): Plan: -BP controlled, continue lisinopril (4) History of DVT (deep vein thrombosis): Plan: -Continue Eliquis (5) BPH (benign prostatic hyperplasia): Plan: -Continue tamsulosin (6) History of CVA (cerebrovascular accident): Plan: -Continue statin (7) DVT prophylaxis: Plan: -On Eliquis Admission and Anticipated Discharge Date Admission Date: May 06, 2021 History of Present Illness Chief Complaint: Generalized weakness, body aches Primary Care Provider: Hilda Spivey MD 71-year-old male with PMH history of CVA, HTN, GERD, BPH, history of DVT on Eliquis, and other problems to below who presents to the ED for evaluation of generalized weakness and body aches. Patient reports he has been feeling sick for the past couple of weeks. Reports being exposed to his son who tested positive for COVID-19. Patient is vaccinated against COVID-19 receiving his vaccinations in August 2020. Patient reports he also has had an intermittent nonproductive cough. No fevers or chills. Reports a very poor appetite however sense of taste and smell remains intact. No abdominal pain, nausea, vomiting, diarrhea. Denies urinary symptoms. In the ED, patient was hypoxic on room air at 88%. He is currently requiring 4 L of oxygen via nasal cannula. CXR shows bibasilar opacities. Patient has tested positive for COVID-19. Patient was given IV dexamethasone 10 mg and IVF. Allergies Allergy/AdvReac Type Severity Reaction Status Date / Time No Known Allergies Allergy Unverified 05/06/21 11:36 Home Medications Medication Instructions Recorded Confirmed Type apixaban 5 mg tablet (Eliquis) 2.5 mg PO BID 12/30/20 05/06/21 History docusate sodium 100 mg capsule 100 mg PO BID PRN 12/30/20 05/06/21 History (Colace) gabapentin 300 mg capsule 300 - 600 mg PO HS PRN 12/30/20 05/06/21 History (Neurontin) lisinopril 10 mg tablet (Zestril) 10 mg PO QAM 12/30/20 05/06/21 History tamsulosin 0.4 mg capsule (Flomax) 0.8 mg PO HS 12/30/20 05/06/21 History rosuvastatin 20 mg tablet 20 mg PO DAILY 05/06/21 05/06/21 History Past Med/Surg History Medical History Ascending cholangitis BPH (benign prostatic hyperplasia) GERD (gastroesophageal reflux disease) History of CVA (cerebrovascular accident) History of DVT (deep vein thrombosis) HTN (hypertension) Incomplete right bundle branch block Surgical History History of colonoscopy 2017-diverticulosis Hx laparoscopic cholecystectomy (01/02/21) Laparoscopic Cholecystectomy Dr. Nguyen 01/02/21 Family History Mother Cancer stomach Sister Cancer stomach Father Stroke Social History Smoking Status: Never smoker Hx Alcohol Use: No Hx Substance Use: No Preferred Language: Japanese Communication Ability: Effective Scientific Illustrator Required: No Beliefs That Will Affect Care: None Current Living Situation: Family Other Information That Helps Us Care for You: No Feels Safe at Home: Yes Safety Concerns: Feels Safe At This Time Assistive Devices: Oxygen - Continuous Review of Systems Review of Systems: ROS per HPI, all other systems reviewed and negative Physical Exam Constitutional: WD/WN, vitals as above + ill appearing; no acute distress Eyes: PERRL, conjunctivae normal, anicteric sclerae ENMT: external ear and nose normal, oropharynx normal Respiratory: normal respiratory effort; no respiratory distress Auscultation: + crackles (Bibasilar) Cardiovascular: Rate/Rhythm: regular rate and regular rhythm Vessels: normal peripheral pulses Extremities: no edema Gastrointestinal (Abdomen): normal bowel sounds, soft, nontender, no hepatosplenomegaly Musculoskeletal: no cyanosis or clubbing, extremities motor strength 5/5 Skin: no rashes, warm and dry Neurologic: PERRL, EOMI, accommodation nl, no face palsy, no dysarthria Psychiatric: Orientation: alert and oriented x 3 Affect: + flat affect Results & Data Results & Data ([facility]) Vital Signs (Past 12 Hours) Vital Signs Temp Pulse Pulse Resp BP BP Pulse Ox 05/06/21 17:21 05/06/21 15:33 71 16 93 05/06/21 14:27 37.4 C 79 22 144/79 H 94 05/06/21 13:44 78 24 141/81 H 95 05/06/21 12:02 82 20 148/74 H 98 05/06/21 10:41 82 24 113/78 96 05/06/21 09:30 36.8 C 95 H 20 133/83 90 Pulse Ox 05/06/21 17:21 94 05/06/21 15:33 05/06/21 14:27 05/06/21 13:44 05/06/21 12:02 05/06/21 10:41 05/06/21 09:30 Laboratory Results Short CBC 05/06/21 Range/Units 10:50 WBC 9.80 (4.8-10.8) K/uL Hgb 14.8 (14.0-18.0) g/dL Hct 44.0 (42-52) % Plt Count 121 L (130-400) K/uL BMP 05/06/21 10:50 Sodium 137 Potassium 4.3 Chloride 103 Carbon Dioxide 25 BUN 12 Creatinine 0.90 Glucose 107 H Calcium 8.3 L Cardiac Enzymes 05/06/21 Range/Units 10:50 Troponin I < 0.015 (0-0.045) ng/ml Liver Function 05/06/21 Range/Units 10:50 Total Bilirubin 0.4 (0.2-1) mg/dl Direct Bilirubin 0.1 (0-0.2) mg/dl AST 53 H (15-37) U/L ALT 42 (12-78) U/L Alkaline Phosphatase 41 L (45-117) U/L Albumin 2.7 L (3.4-5.0) gm/dl Urine 05/06/21 Range/Units 15:30 Urine Color Dark Yellow Urine Appearance Clear (Clear) Urine pH 5.5 (4.5-7.5) Ur Specific [place] 1.024 (1.000-1.030) Urine Protein 2+ H (Negative) Urine Glucose (UA) Negative (Negative) Diagnostic Findings Chest X-Ray 05/06/21 10:07 XR chest 1V portable CLINICAL HISTORY: cough TECHNIQUE: Single frontal radiograph of the chest was obtained. Comparison: Comparison is made to chest one view 12/30/2020 FINDINGS: No lines and tubes are seen. The cardiomediastinal silhouette is normal. Bilateral lower lung predominant airspace opacities are seen. No evidence of pleural effusion or pneumothorax. IMPRESSION: Bilateral lower lung predominant airspace opacities which may represent atelectasis, pneumonia, and/or aspiration. ACT 112: Negative or not required by law. Electronically signed by: Wallace Alvarez M.D. 05/06/2021 10:[address] 05/06/21 10:[address] DOSE: 537.48 mGy.cm HISTORY: generalized weakness TECHNIQUE: Multiaxial CT images of the head were performed without the use of intravenous contrast. Automated exposure control was utilized for this study. A dose lowering technique was utilized adhering to the principles of ALARA. Comparison: None. Findings: Mild mucosal thickening within the ethmoid air cells and maxillary sinuses. The mastoid air cells are clear. The calvarium and skull base are intact. There is no mass, hematoma, midline shift, acute infarct. White matter hypodensity is nonspecific but suggestive of microvascular ischemic change. The ventricles and sulci demonstrate mild age-related involutional changes. Focal area of encephalomalacia within the left frontotemporal region consistent with an old left MCA territory infarct. Impression: 1. No acute intracranial abnormality. 2. Old left MCA territory infarct. ACT 112: Negative or not required by law. Electronically signed by: Marvin Basurto M.D. 05/06/2021 11:49 AM Code Status & VTE Plan Code Status Patient is a DNR as per my discussion with him. VTE Prophylaxis Plan VTE Prophylaxis will be ordered: No Supervising Physician Co-Signing Physician Notes I have seen and examined the patient and have discussed the case with the provider above. I agree with the assessment and plan as stated. 71 yo M with covid pneumonia. Excessive coughing present. Minimal oxygen requirement. Outside the window of benefit for remdesivir at this point. Coarse crackles throughout lungs bilaterally, Heart exam reveals S1/2 with normal rate and rhythm, no m/g/r. He is not working to breathe. Abdomen is soft, NTND and he has no edema. Mentating clearly. Cont daily steroids as above. Will give Lasix now to help keep him net negative overall, especially with crackles present on exam and BP 144/80. Caden,
--- NOTE | 2021-05-06 18:45 | History & Physical Report ---
Date of Service May 06, 2021 Assessment & Plan Admission and Anticipated Discharge Date Admission Date: May 06, 2021 History of Present Illness Primary Care Provider: Hilda Spivey MD Allergies Allergy/AdvReac Type Severity Reaction Status Date / Time No Known Allergies Allergy Unverified 05/06/21 11:36 Home Medications Medication Instructions Recorded Confirmed Type apixaban 5 mg tablet (Eliquis) 2.5 mg PO BID 12/30/20 05/06/21 History docusate sodium 100 mg capsule 100 mg PO BID PRN 12/30/20 05/06/21 History (Colace) gabapentin 300 mg capsule 300 - 600 mg PO HS PRN 12/30/20 05/06/21 History (Neurontin) lisinopril 10 mg tablet (Zestril) 10 mg PO QAM 12/30/20 05/06/21 History tamsulosin 0.4 mg capsule (Flomax) 0.8 mg PO HS 12/30/20 05/06/21 History rosuvastatin 20 mg tablet 20 mg PO DAILY 05/06/21 05/06/21 History Past Med/Surg History Medical History GERD (gastroesophageal reflux disease) Incomplete right bundle branch block Surgical History History of colonoscopy Hx laparoscopic cholecystectomy (01/02/21) Family History Mother Cancer Sister Cancer Father Stroke Social History Smoking Status: Never smoker Hx Alcohol Use: No Hx Substance Use: No Preferred Language: Belgian Communication Ability: Effective Hand Cloth Folder Required: No Beliefs That Will Affect Care: None Current Living Situation: Family Other Information That Helps Us Care for You: No Feels Safe at Home: Yes Safety Concerns: Feels Safe At This Time Assistive Devices: None Results & Data Results & Data ([facility]) Vital Signs (Past 12 Hours) Vital Signs Temp Pulse Pulse Resp BP BP Pulse Ox 05/06/21 17:21 05/06/21 15:33 71 16 93 05/06/21 14:27 37.4 C 79 22 144/79 H 94 05/06/21 13:44 78 24 141/81 H 95 05/06/21 12:02 82 20 148/74 H 98 05/06/21 10:41 82 24 113/78 96 05/06/21 09:30 36.8 C 95 H 20 133/83 90 Pulse Ox 05/06/21 17:21 94 05/06/21 15:33 05/06/21 14:27 05/06/21 13:44 05/06/21 12:02 05/06/21 10:41 05/06/21 09:30 Code Status & VTE Plan VTE Prophylaxis Plan VTE Prophylaxis will be ordered: No Supervising Physician Co-Signing Physician Notes I have seen and examined the patient and have discussed the case with the provider above. I agree with the assessment and plan as stated. 71 yo M with covid pneumonia. Excessive coughing present. Minimal oxygen requirement. Outside the window of benefit for remdesivir at this point. Coarse crackles throughout lungs bilaterally, Heart exam reveals S1/2 with normal rate and rhythm, no m/g/r. He is not working to breathe. Abdomen is soft, NTND and he has no edema. Mentating clearly. Cont daily steroids as above. Will give Lasix now to help keep him net negative overall, especially with crackles present on exam and BP 144/80. DO Caden
[2021-05-06] MEDS: APIXABAN 2.5 MG TAB PO SCH (21:37)
[2021-05-06] MEDS: TAMSULOSIN HCL 0.4 MG CAP PO SCH (21:37)
[2021-05-07] MEDS: ALBUT/IPRATROP 3MG/0.5MG NEB 3 ML VIAL NEB SCH ×6 (02:30→23:48)
[2021-05-07 06:08] LABS: Hematocrit (blood only) 45.8 % (42-52); Hemoglobin 15.1 g/dL (14.0-18.0); Mean Corpuscular Hemoglobin 30.1 pg (25-34); Mean Corpuscular Volume 91.4 fL (80-100); Mean Platelet Volume 11.6 fL (7.4-10.4); Platelet Count 154 K/uL (130-400); RDW Coefficient of Variation 13.9 % (11.5-14.5); RDW Standard Deviation 46.5 fL (36.4-46.3); Red Blood Count 5.01 M/uL (4.7-6.1); White Blood Count 7.86 K/uL (4.8-10.8)
[2021-05-07 07:19] LABS: BUN Creatinine Ratio 16.2 (10-20); Calcium 8.6 mg/dl (8.5-10.1); Creatinine Clr Calc Pharmacy 60.6 ml/min; Est GFR (African American) 88.3 ml/min; Est GFR (Non-African American) 76.2 ml/min; Potassium 3.4 mmol/L (3.5-5.1)
[2021-05-07] MEDS ORDERED: POTASSIUM CHLORIDE CRTAB 20 MEQ TABCR PO STA (08:38)
[2021-05-07] MEDS: dexAMETHasone 6 MG in SYRINGE 0 ML IV SCH (08:59)
[2021-05-07] MEDS: APIXABAN 2.5 MG TAB PO SCH ×2 (09:00→20:56)
[2021-05-07] MEDS: lisinopril 10 MG TAB PO SCH (09:00)
[2021-05-07] MEDS: ROSUVASTATIN CALCIUM 20 MG TAB PO SCH (09:00)
--- NOTE | 2021-05-07 19:41 | Hospitalist Progress Note ---
Date of Service May 07, 2021 Assessment & Plan (1) Acute respiratory failure with hypoxia: Plan: per plan below. (2) Pneumonia due to COVID-19 virus: Plan: 2 weeks of generalized weakness, body aches and cough. He continues to be hypoxic oxygenating 93% on 2 L/min today. Continues to have cough which is about the same. Continue Decadron. Given duration of symptoms no indication for remdesivir. Continue supportive care efforts such as flutter valve as needed. (3) HTN (hypertension): Plan: At goal continue lisinopril. (4) History of DVT (deep vein thrombosis): Plan: Continue Eliquis per home regimen. (5) BPH (benign prostatic hyperplasia): Plan: Continues tamsulosin per home regimen (6) History of CVA (cerebrovascular accident): Plan: -Continue statin and Eliquis per home regimen. (7) DVT prophylaxis: Plan: Eliquis DNR/DNI Dispo-to home when off oxygen DO Consuelo Bowers hospitalist Admission and Anticipated Discharge Date Admission Date: May 06, 2021 Subjective 71-year-old man admitted with Covid pneumonia Patient remains hypoxic on 2 L/min nasal cannula He appears ill but is reporting feeling okay Some cough present that is junky Tolerating p.o. No GI symptoms. Review of Systems Review of Systems: All systems reviewed and negative except as indicated above Physical Exam Physical Exam: CONSTITUTIONAL: WNWD, vitals as above, NAD EYES: normal conjunctivae, no scleral icterus ENT: external ear and nose normal, MMM NECK: trachea midline RESPIRATORY: crackles throughout, no rales or wheezes, normal respiratory effort CARDIOVASCULAR: regular rate and rhythm, S1 and 2 heard without murmurs, gallops or rubs, no JVD, no peripheral edema GASTROINTESTINAL: soft, nontender, ND , no guarding MUSCULOSKELETAL: strength 5/5 throughout, head is normocephalic and atraumatic SKIN: warm and dry NEUROLOGIC: CN 2-12 grossly intact, normal cognition, normal speech, no gross focal deficits. PSYCHIATRIC: alert cooperative and oriented to person, place and time. Results & Data Results & Data ([facility]) Vital Signs (Past 12 Hours) Vital Signs Temp Pulse Resp BP Pulse Ox 05/07/21 15:51 82 18 91 05/07/21 15:30 36.6 C 78 18 120/74 96 05/07/21 12:43 91 05/07/21 11:03 36.8 C 107 H 18 119/72 90 05/07/21 10:38 92 H 18 92 Laboratory Results Short CBC 05/07/21 Range/Units 05:43 WBC 7.86 (4.8-10.8) K/uL Hgb 15.1 (14.0-18.0) g/dL Hct 45.8 (42-52) % Plt Count 154 (130-400) K/uL BMP 05/07/21 05:43 Sodium 138 Potassium 3.4 L D Chloride 106 Carbon Dioxide 25 BUN 16 Creatinine 0.98 Glucose 163 H Calcium 8.6 Medications Administered Current Inpatient Medications Acetaminophen (Acetaminophen 325 Mg Tab) 650 mg PO Q4H PRN PRN Reason: pain/fever Stop: 06/05/21 14:25 Albuterol (Albut/Ipratrop 3mg/0.5mg Neb 3 Ml Vial) 3 ml NEB Q4R [facility] Stop: 06/05/21 14:59 Last Admin: 05/07/21 15:51 Dose: 3 ml Documented by: Apixaban (Apixaban 2.5 Mg Tab) 2.5 mg PO BID [facility] Stop: 06/05/21 20:59 Last Admin: 05/07/21 09:00 Dose: 2.5 mg Documented by: Docusate Sodium (Docusate Sodium 100 Mg Cap) 100 mg PO BID PRN PRN Reason: Constipation Stop: 06/05/21 14:36 Guaifenesin/Codeine Phosphate (Guaifenesin/Codeine 200mg/20mg 10ml Udc) 10 ml PO Q6H PRN PRN Reason: Cough Stop: 06/05/21 17:21 Dexamethasone 6 mg/ Syringe 1.5 mls @ 1 mls/min IV Q24H [facility] Stop: 06/06/21 08:59 Last Admin: 05/07/21 08:59 Dose: 1 mls/min Documented by: Lisinopril (Lisinopril 10 Mg Tab) 10 mg PO QAM [facility] Stop: 06/06/21 08:59 Last Admin: 05/07/21 09:00 Dose: 10 mg Documented by: Rosuvastatin Calcium (Rosuvastatin Calcium 20 Mg Tab) 20 mg PO DAILY [facility] Stop: 06/06/21 08:59 Last Admin: 05/07/21 09:00 Dose: 20 mg Documented by: Tamsulosin HCl (Tamsulosin Hcl 0.4 Mg Cap) 0.8 mg PO HS [facility] Stop: 06/05/21 20:59 Last Admin: 05/06/21 21:37 Dose: 0.8 mg Documented by:
[2021-05-07] MEDS: TAMSULOSIN HCL 0.4 MG CAP PO SCH (20:56)
[2021-05-08] MEDS: ALBUT/IPRATROP 3MG/0.5MG NEB 3 ML VIAL NEB SCH ×4 (03:31→16:02)
[2021-05-08] MEDS: ROSUVASTATIN CALCIUM 20 MG TAB PO SCH (08:18)
[2021-05-08] MEDS: APIXABAN 2.5 MG TAB PO SCH ×2 (08:18→21:40)
[2021-05-08] MEDS: dexAMETHasone 6 MG in SYRINGE 0 ML IV SCH (08:18)
[2021-05-08] MEDS: lisinopril 10 MG TAB PO SCH (08:18)
[2021-05-08 11:32] LABS: Hemoglobin 15.1 g/dL (14.0-18.0); Mean Corpuscular Hemoglobin 30.4 pg (25-34); Mean Corpuscular Hgb Conc 32.8 g/dL (32-36); Mean Corpuscular Volume 92.6 fL (80-100); Mean Platelet Volume 11.5 fL (7.4-10.4); Platelet Count 195 K/uL (130-400); RDW Standard Deviation 47.1 fL (36.4-46.3); Red Blood Count 4.97 M/uL (4.7-6.1)
[2021-05-08 11:59] LABS: BUN Creatinine Ratio 15.7 (10-20); Calcium 8.9 mg/dl (8.5-10.1); Est GFR (African American) 75.1 ml/min; Est GFR (Non-African American) 64.8 ml/min; Magnesium 2.6 mg/dl (1.8-2.4); Phosphorus 2.7 mg/dl (2.5-4.9); Potassium 4.1 mmol/L (3.5-5.1)
--- NOTE | 2021-05-08 20:08 | Hospitalist Progress Note ---
Date of Service May 08, 2021 Assessment & Plan (1) Acute respiratory failure with hypoxia: Plan: per plan below. (2) Pneumonia due to COVID-19 virus: Plan: He continues to be hypoxic oxygenating 93% on 2 L/min today. Continue Decadron. Given duration of symptoms no indication for remdesivir. (3) HTN (hypertension): Plan: At goal continue lisinopril. (4) History of DVT (deep vein thrombosis): Plan: Continue Eliquis per home regimen. (5) BPH (benign prostatic hyperplasia): Plan: Continues tamsulosin per home regimen (6) History of CVA (cerebrovascular accident): Plan: -Continue statin and Eliquis per home regimen. (7) DVT prophylaxis: Plan: Eliquis DNR/DNI Dispo-to home when off oxygen DO Consuelo Bowers hospitalist Admission and Anticipated Discharge Date Admission Date: May 06, 2021 Subjective 71-year-old man admitted with Covid pneumonia Patient remains hypoxic on 2 L/min nasal cannula He appears ill but is reporting feeling okay No pain +cough Review of Systems Review of Systems: All systems reviewed and negative except as indicated above Physical Exam Physical Exam: CONSTITUTIONAL: WNWD, vitals as above, NAD EYES: normal conjunctivae, no scleral icterus ENT: external ear and nose normal, MMM NECK: trachea midline RESPIRATORY: crackles throughout, no rales or wheezes, normal respiratory effort CARDIOVASCULAR: regular rate and rhythm, S1 and 2 heard without murmurs, gallops or rubs, no JVD, no peripheral edema GASTROINTESTINAL: soft, nontender, ND , no guarding MUSCULOSKELETAL: strength 5/5 throughout, head is normocephalic and atraumatic SKIN: warm and dry NEUROLOGIC: CN 2-12 grossly intact, normal cognition, normal speech, no gross focal deficits. PSYCHIATRIC: alert cooperative and oriented to person, place and time. Results & Data Results & Data ([facility]) Vital Signs (Past 12 Hours) Vital Signs Temp Pulse Resp BP BP Pulse Ox Pulse Ox 05/08/21 19:00 36.6 C 83 20 125/80 93 05/08/21 16:47 94 05/08/21 16:22 37.0 C 82 20 129/83 93 05/08/21 16:03 74 18 93 05/08/21 14:00 60 05/08/21 12:32 36.9 C 93 H 20 125/77 92 05/08/21 11:14 79 16 90 05/08/21 08:20 37.0 C 90 20 127/82 91 Laboratory Results Short CBC 05/08/21 Range/Units 11:10 WBC 10.40 (4.8-10.8) K/uL Hgb 15.1 (14.0-18.0) g/dL Hct 46.0 (42-52) % Plt Count 195 (130-400) K/uL BMP 05/08/21 11:10 Sodium 140 Potassium 4.1 D Chloride 108 H Carbon Dioxide 23 BUN 18 Creatinine 1.12 Glucose 123 H Calcium 8.9 Medications Administered Current Inpatient Medications Acetaminophen (Acetaminophen 325 Mg Tab) 650 mg PO Q4H PRN PRN Reason: pain/fever Stop: 06/05/21 14:25 Albuterol (Albut/Ipratrop 3mg/0.5mg Neb 3 Ml Vial) 3 ml NEB Q4R PRN PRN Reason: Shortness Of Breath Or Wheezing Stop: 06/05/21 14:59 Apixaban (Apixaban 2.5 Mg Tab) 2.5 mg PO BID [facility] Stop: 06/05/21 20:59 Last Admin: 05/08/21 08:18 Dose: 2.5 mg Documented by: Docusate Sodium (Docusate Sodium 100 Mg Cap) 100 mg PO BID PRN PRN Reason: Constipation Stop: 06/05/21 14:36 Guaifenesin/Codeine Phosphate (Guaifenesin/Codeine 200mg/20mg 10ml Udc) 10 ml PO Q6H PRN PRN Reason: Cough Stop: 06/05/21 17:21 Last Admin: 05/08/21 11:24 Dose: 10 ml Documented by: Dexamethasone 6 mg/ Syringe 1.5 mls @ 1 mls/min IV Q24H [facility] Stop: 06/06/21 08:59 Last Admin: 05/08/21 08:18 Dose: 1 mls/min Documented by: Lisinopril (Lisinopril 10 Mg Tab) 10 mg PO QAM [facility] Stop: 06/06/21 08:59 Last Admin: 05/08/21 08:18 Dose: 10 mg Documented by: Rosuvastatin Calcium (Rosuvastatin Calcium 20 Mg Tab) 20 mg PO DAILY [facility] Stop: 06/06/21 08:59 Last Admin: 05/08/21 08:18 Dose: 20 mg Documented by: Tamsulosin HCl (Tamsulosin Hcl 0.4 Mg Cap) 0.8 mg PO HS [facility] Stop: 06/05/21 20:59 Last Admin: 05/07/21 20:56 Dose: 0.8 mg Documented by:
[2021-05-08] MEDS: TAMSULOSIN HCL 0.4 MG CAP PO SCH (21:40)
[2021-05-08] MEDS: ALBUT/IPRATROP 3MG/0.5MG NEB 3 ML VIAL NEB PRN (22:48)
[2021-05-09 08:09] LABS: Hematocrit (blood only) 43.8 % (42-52); Hemoglobin 14.4 g/dL (14.0-18.0); Mean Corpuscular Hemoglobin 30.1 pg (25-34); Mean Corpuscular Hgb Conc 32.9 g/dL (32-36); Mean Corpuscular Volume 91.6 fL (80-100); Mean Platelet Volume 11.7 fL (7.4-10.4); Platelet Count 220 K/uL (130-400); RDW Coefficient of Variation 13.9 % (11.5-14.5); Red Blood Count 4.78 M/uL (4.7-6.1); White Blood Count 7.85 K/uL (4.8-10.8)
[2021-05-09 08:47] LABS: BUN Creatinine Ratio 23.3 (10-20); C Reactive Protein 0.95 mg/dl (0-0.29); Calcium 8.3 mg/dl (8.5-10.1); Creatinine Clr Calc Pharmacy 72.4 ml/min; Est GFR (African American) 101.7 ml/min; Est GFR (Non-African American) 87.7 ml/min; Magnesium 2.4 mg/dl (1.8-2.4); Phosphorus 3.7 mg/dl (2.5-4.9); Potassium 4.2 mmol/L (3.5-5.1)
[2021-05-09] MEDS: dexAMETHasone 6 MG in SYRINGE 0 ML IV SCH (09:11)
[2021-05-09] MEDS: APIXABAN 2.5 MG TAB PO SCH ×2 (09:12→20:11)
[2021-05-09] MEDS: ROSUVASTATIN CALCIUM 20 MG TAB PO SCH (09:12)
[2021-05-09] MEDS: lisinopril 10 MG TAB PO SCH (09:12)
[2021-05-09] MEDS: ALBUT/IPRATROP 3MG/0.5MG NEB 3 ML VIAL NEB PRN (11:09)
[2021-05-09] MEDS ORDERED: SODIUM CHLORIDE 0.65% NA SOLN 45 ML (OCEAN) PRN (18:45)
--- NOTE | 2021-05-09 19:30 | Hospitalist Progress Note ---
Date of Service May 09, 2021 Assessment & Plan (1) Acute respiratory failure with hypoxia: Plan: per plan below. (2) Pneumonia due to COVID-19 virus: Plan: He continues to be hypoxic oxygenating 93% on 5 L/min today. Continue Decadron. Given duration of symptoms no indication for remdesivir. (3) HTN (hypertension): Plan: At goal continue lisinopril. (4) History of DVT (deep vein thrombosis): Plan: Continue Eliquis per home regimen. (5) BPH (benign prostatic hyperplasia): Plan: Continues tamsulosin per home regimen (6) History of CVA (cerebrovascular accident): Plan: -Continue statin and Eliquis per home regimen. (7) DVT prophylaxis: Plan: Eliquis DNR/DNI Dispo-to home when off oxygen. Patient reporting dry naris, given nasal saline spray and humidified oxygen to line. Malissa Negrete DO [facility] hospitalist Admission and Anticipated Discharge Date Admission Date: May 06, 2021 Subjective 71-year-old man admitted with Covid pneumonia Patient remains hypoxic on 5 L/min nasal cannula He appears ill and is reporting not feeling well, apathetic to food and only drink a boost today. Nutrition is seeing him and recommends vitamin supplementation which was ordered. +cough Back is noted to be sweaty and he states this is normal for him when he is covered up. Review of Systems Review of Systems: All systems reviewed and negative except as indicated above Physical Exam Physical Exam: CONSTITUTIONAL: WNWD, vitals as above, NAD EYES: normal conjunctivae, no scleral icterus ENT: external ear and nose normal, MMM NECK: trachea midline RESPIRATORY: crackles throughout, no rales or wheezes, normal respiratory effort CARDIOVASCULAR: regular rate and rhythm, S1 and 2 heard without murmurs, gallops or rubs, no JVD, no peripheral edema GASTROINTESTINAL: soft, nontender, ND , no guarding MUSCULOSKELETAL: strength 5/5 throughout, head is normocephalic and atraumatic SKIN: warm and dry NEUROLOGIC: CN 2-12 grossly intact, normal cognition, normal speech, no gross focal deficits. PSYCHIATRIC: alert cooperative and oriented to person, place and time. Results & Data Results & Data ([facility]) Vital Signs (Past 12 Hours) Vital Signs Temp Pulse Resp BP Pulse Ox 05/09/21 19:06 36.8 C 73 14 142/88 H 93 05/09/21 16:00 36.6 C 90 18 152/90 H 92 05/09/21 12:17 36.9 C 80 16 138/80 05/09/21 11:09 64 18 95 05/09/21 08:01 37 C 69 24 154/89 H 92 Laboratory Results Short CBC 05/09/21 Range/Units 07:31 WBC 7.85 (4.8-10.8) K/uL Hgb 14.4 (14.0-18.0) g/dL Hct 43.8 (42-52) % Plt Count 220 (130-400) K/uL BMP 05/09/21 07:31 Sodium 142 Potassium 4.2 Chloride 110 H Carbon Dioxide 24 BUN 19 H Creatinine 0.82 D Glucose 95 Calcium 8.3 L Medications Administered Current Inpatient Medications Acetaminophen (Acetaminophen 325 Mg Tab) 650 mg PO Q4H PRN PRN Reason: pain/fever Stop: 06/05/21 14:25 Albuterol (Albut/Ipratrop 3mg/0.5mg Neb 3 Ml Vial) 3 ml NEB Q4R PRN PRN Reason: Shortness Of Breath Or Wheezing Stop: 06/05/21 14:59 Last Admin: 05/09/21 11:09 Dose: 3 ml Documented by: Apixaban (Apixaban 2.5 Mg Tab) 2.5 mg PO BID [facility] Stop: 06/05/21 20:59 Last Admin: 05/09/21 09:12 Dose: 2.5 mg Documented by: Docusate Sodium (Docusate Sodium 100 Mg Cap) 100 mg PO BID PRN PRN Reason: Constipation Stop: 06/05/21 14:36 Guaifenesin/Codeine Phosphate (Guaifenesin/Codeine 200mg/20mg 10ml Udc) 10 ml PO Q6H PRN PRN Reason: Cough Stop: 06/05/21 17:21 Last Admin: 05/08/21 11:24 Dose: 10 ml Documented by: Dexamethasone 6 mg/ Syringe 1.5 mls @ 1 mls/min IV Q24H [facility] Stop: 06/06/21 08:59 Last Admin: 05/09/21 09:11 Dose: 1 mls/min Documented by: Lisinopril (Lisinopril 10 Mg Tab) 10 mg PO QAM [facility] Stop: 06/06/21 08:59 Last Admin: 05/09/21 09:12 Dose: 10 mg Documented by: Rosuvastatin Calcium (Rosuvastatin Calcium 20 Mg Tab) 20 mg PO DAILY [facility] Stop: 06/06/21 08:59 Last Admin: 05/09/21 09:12 Dose: 20 mg Documented by: Sodium Chloride (Sodium Chloride 0.65% Na Soln 45 Ml ([place])) 2 sprays NA Q2H PRN PRN Reason: dry nares/congestion Stop: 06/08/21 18:44 Tamsulosin HCl (Tamsulosin Hcl 0.4 Mg Cap) 0.8 mg PO HS [facility] Stop: 06/05/21 20:59 Last Admin: 05/08/21 21:40 Dose: 0.8 mg Documented by: Vitamin D (Cholecalciferol 1,000 Units 25 Mcg Tab) 1,000 units PO QAM [facility] Stop: 06/09/21 08:59
[2021-05-09] MEDS: TAMSULOSIN HCL 0.4 MG CAP PO SCH (20:11)
[2021-05-10] MEDS: ALBUT/IPRATROP 3MG/0.5MG NEB 3 ML VIAL NEB PRN (05:49)
[2021-05-10] MEDS: CHOLECALCIFEROL 1,000 UNITS 25 MCG TAB PO SCH (08:11)
[2021-05-10] MEDS: APIXABAN 2.5 MG TAB PO SCH ×2 (08:11→20:21)
[2021-05-10] MEDS: ROSUVASTATIN CALCIUM 20 MG TAB PO SCH (08:12)
[2021-05-10] MEDS: lisinopril 10 MG TAB PO SCH (08:12)
[2021-05-10 09:09] LABS: Hematocrit (blood only) 44.9 % (42-52); Hemoglobin 14.6 g/dL (14.0-18.0); Mean Corpuscular Hemoglobin 30.1 pg (25-34); Mean Corpuscular Hgb Conc 32.5 g/dL (32-36); Mean Corpuscular Volume 92.6 fL (80-100); Mean Platelet Volume 11.7 fL (7.4-10.4); Platelet Count 246 K/uL (130-400); RDW Coefficient of Variation 13.8 % (11.5-14.5); RDW Standard Deviation 46.7 fL (36.4-46.3); Red Blood Count 4.85 M/uL (4.7-6.1); White Blood Count 8.85 K/uL (4.8-10.8)
[2021-05-10] MEDS: dexAMETHasone 6 MG in SYRINGE 0 ML IV SCH (09:38)
[2021-05-10 09:47] LABS: BUN Creatinine Ratio 24.5 (10-20); C Reactive Protein 0.57 mg/dl (0-0.29); Calcium 8.4 mg/dl (8.5-10.1); Creatinine Clr Calc Pharmacy 79.2 ml/min; Est GFR (African American) 105.5 ml/min; Magnesium 2.2 mg/dl (1.8-2.4); Phosphorus 3.4 mg/dl (2.5-4.9); Potassium 3.8 mmol/L (3.5-5.1)
[2021-05-10] MEDS: TAMSULOSIN HCL 0.4 MG CAP PO SCH (20:21)
--- NOTE | 2021-05-10 22:15 | Hospitalist Progress Note ---
Date of Service May 10, 2021 Assessment & Plan (1) Acute respiratory failure with hypoxia: Plan: per plan below. (2) Pneumonia due to COVID-19 virus: Plan: He continues to be hypoxic oxygenating 93% on 5 L/min today. Continue Decadron. Given duration of symptoms no indication for remdesivir. (3) HTN (hypertension): Plan: At goal continue lisinopril. (4) History of DVT (deep vein thrombosis): Plan: Continue Eliquis per home regimen. (5) BPH (benign prostatic hyperplasia): Plan: Continues tamsulosin per home regimen (6) History of CVA (cerebrovascular accident): Plan: -Continue statin and Eliquis per home regimen. (7) DVT prophylaxis: Plan: Eliquis DNR/DNI Dispo-to home when off oxygen. Patient reporting dry nares, given nasal saline spray and humidified oxygen to line. Malissa Negrete DO [facility] Hospitalist Admission and Anticipated Discharge Date Admission Date: May 06, 2021 Subjective 71-year-old man admitted with Covid pneumonia Patient remains hypoxic on 5 L/min nasal cannula He appears ill and is reporting not feeling well, apathetic to food and only drink a boost today. Nutrition is seeing him and recommends vitamin supplementation which was ordered. +cough Back is noted to be sweaty and he states this is normal for him when he is covered up. Review of Systems Review of Systems: All systems reviewed and negative except as indicated above Physical Exam Physical Exam: CONSTITUTIONAL: WNWD, vitals as above, NAD EYES: normal conjunctivae, no scleral icterus ENT: external ear and nose normal, MMM NECK: trachea midline RESPIRATORY: crackles throughout, no rales or wheezes, normal respiratory effort CARDIOVASCULAR: regular rate and rhythm, S1 and 2 heard without murmurs, gallops or rubs, no JVD, no peripheral edema GASTROINTESTINAL: soft, nontender, ND , no guarding MUSCULOSKELETAL: strength 5/5 throughout, head is normocephalic and atraumatic SKIN: warm and dry NEUROLOGIC: CN 2-12 grossly intact, normal cognition, normal speech, no gross focal deficits. PSYCHIATRIC: alert cooperative and oriented to person, place and time. Results & Data Results & Data ([facility]) Vital Signs (Past 12 Hours) Vital Signs Temp Pulse Resp BP Pulse Ox 05/10/21 21:00 36.7 C 66 18 145/87 H 95 05/10/21 15:46 36.9 C 70 18 138/88 93 05/10/21 11:40 36.4 C L 76 19 141/88 H 93 Laboratory Results Short CBC 05/10/21 Range/Units 07:44 WBC 8.85 (4.8-10.8) K/uL Hgb 14.6 (14.0-18.0) g/dL Hct 44.9 (42-52) % Plt Count 246 (130-400) K/uL BMP 05/10/21 07:44 Sodium 138 Potassium 3.8 Chloride 105 Carbon Dioxide 24 BUN 18 Creatinine 0.75 Glucose 82 Calcium 8.4 L Medications Administered Current Inpatient Medications Acetaminophen (Acetaminophen 325 Mg Tab) 650 mg PO Q4H PRN PRN Reason: pain/fever Stop: 06/05/21 14:25 Albuterol (Albut/Ipratrop 3mg/0.5mg Neb 3 Ml Vial) 3 ml NEB Q4R PRN PRN Reason: Shortness Of Breath Or Wheezing Stop: 06/05/21 14:59 Last Admin: 05/10/21 05:49 Dose: 3 ml Documented by: Apixaban (Apixaban 2.5 Mg Tab) 2.5 mg PO BID [facility] Stop: 06/05/21 20:59 Last Admin: 05/10/21 20:21 Dose: 2.5 mg Documented by: Docusate Sodium (Docusate Sodium 100 Mg Cap) 100 mg PO BID PRN PRN Reason: Constipation Stop: 06/05/21 14:36 Guaifenesin/Codeine Phosphate (Guaifenesin/Codeine 200mg/20mg 10ml Udc) 10 ml PO Q6H PRN PRN Reason: Cough Stop: 06/05/21 17:21 Last Admin: 05/08/21 11:24 Dose: 10 ml Documented by: Dexamethasone 6 mg/ Syringe 1.5 mls @ 1 mls/min IV Q24H [facility] Stop: 06/06/21 08:59 Last Admin: 05/10/21 09:38 Dose: 1 mls/min Documented by: Lisinopril (Lisinopril 10 Mg Tab) 10 mg PO QAM [facility] Stop: 06/06/21 08:59 Last Admin: 05/10/21 08:12 Dose: 10 mg Documented by: Rosuvastatin Calcium (Rosuvastatin Calcium 20 Mg Tab) 20 mg PO DAILY [facility] Stop: 06/06/21 08:59 Last Admin: 05/10/21 08:12 Dose: 20 mg Documented by: Sodium Chloride (Sodium Chloride 0.65% Na Soln 45 Ml ([place])) 2 sprays NA Q2H PRN PRN Reason: dry nares/congestion Stop: 06/08/21 18:44 Tamsulosin HCl (Tamsulosin Hcl 0.4 Mg Cap) 0.8 mg PO HS [facility] Stop: 06/05/21 20:59 Last Admin: 05/10/21 20:21 Dose: 0.8 mg Documented by: Vitamin D (Cholecalciferol 1,000 Units 25 Mcg Tab) 1,000 units PO QAM [facility] Stop: 06/09/21 08:59 Last Admin: 05/10/21 08:11 Dose: 1,000 units Documented by:
[2021-05-11] MEDS: ROSUVASTATIN CALCIUM 20 MG TAB PO SCH (10:35)
[2021-05-11] MEDS: dexAMETHasone 6 MG in SYRINGE 0 ML IV SCH (10:35)
[2021-05-11] MEDS: lisinopril 10 MG TAB PO SCH (10:35)
[2021-05-11] MEDS: CHOLECALCIFEROL 1,000 UNITS 25 MCG TAB PO SCH (10:36)
[2021-05-11] MEDS: APIXABAN 2.5 MG TAB PO SCH ×2 (10:36→20:51)
--- NOTE | 2021-05-11 19:32 | Hospitalist Progress Note ---
Date of Service May 11, 2021 Assessment & Plan (1) Acute respiratory failure with hypoxia: (2) Pneumonia due to COVID-19 virus: Plan: Present on admission with worsening shortness of breath CXR showed biilateral lower lung predominant airspace opacities which may represent atelectasis, pneumonia, and/or aspiration. Continue dexamethasone Given duration of symptoms no indication for remdesivir. Continue oxygen supplement We will give al trial of Lasix 20 mg x 1 (3) HTN (hypertension): Plan: At goal continue lisinopril. (4) History of DVT (deep vein thrombosis): Plan: Continue Eliquis per home regimen. (5) BPH (benign prostatic hyperplasia): Plan: Continues tamsulosin per home regimen (6) History of CVA (cerebrovascular accident): Plan: -Continue statin and Eliquis per home regimen. (7) DVT prophylaxis: Plan: Eliquis DNR/DNI Dispo-to home when off oxygen. Patient reporting dry nares, given nasal saline spray and humidified oxygen to line. Admission and Anticipated Discharge Date Admission Date: May 06, 2021 Subjective Patient was seen and examined for follow-up of shortness of breath due to COVID- 19 Lying in bed with no acute respiratory distress Continue to require oxygen supplement Denies any chest pain, palpitation, dizziness, and fever. Review of Systems Review of Systems: All systems reviewed & are unremarkable except as noted in Subjective Physical Exam Physical Exam: General- No acute distress Head- atraumatic Eyes- PERRL, EOMI, ENT- oropharynx clear Neck- supple, no JVD Lungs- +diminished breath sounds Heart- regular rhythm; no murmur Abdomen- normal bowel sounds, soft, nontender Extremities- no calf tenderness Neuro- alert, oriented x 3; PERRL, EOMI; no facial palsy; no dysarthria Skin- warm & dry Results & Data Results & Data ([facility]) Vital Signs (Past 12 Hours) Vital Signs Temp Pulse Resp BP BP Pulse Ox 05/11/21 19:24 36.7 C 90 22 132/85 91 05/11/21 14:57 36.8 C 69 18 128/84 93
[2021-05-11] MEDS: TAMSULOSIN HCL 0.4 MG CAP PO SCH (20:51)
[2021-05-12] MEDS ORDERED: FUROSEMIDE INJ 20 MG/2 ML VIAL IV ONE (02:39)
[2021-05-12] MEDS ORDERED: FUROSEMIDE 40 MG/4 ML VIAL IV ONE (05:28)
[2021-05-12 07:01] LABS: Albumin Level 2.8 gm/dl (3.4-5.0); BUN Creatinine Ratio 24.8 (10-20); Calcium 9.1 mg/dl (8.5-10.1); Est GFR (African American) 97.9 ml/min; Est GFR (Non-African American) 84.4 ml/min; Potassium 3.9 mmol/L (3.5-5.1)
[2021-05-12 07:04] LABS: Albumin Globulin Ratio 0.6 (0.9-2); Bilirubin,Total 0.7 mg/dl (0.2-1); Globulin 4.7 gm/dl (2.5-4.0); Total Protein 7.5 gm/dl (6.4-8.2)
[2021-05-12] MEDS: APIXABAN 2.5 MG TAB PO SCH ×2 (07:59→21:09)
[2021-05-12] MEDS: lisinopril 10 MG TAB PO SCH (07:59)
[2021-05-12] MEDS: CHOLECALCIFEROL 1,000 UNITS 25 MCG TAB PO SCH (07:59)
[2021-05-12] MEDS: ROSUVASTATIN CALCIUM 20 MG TAB PO SCH (07:59)
[2021-05-12] MEDS: dexAMETHasone 6 MG in SYRINGE 0 ML IV SCH (08:02)
--- NOTE | 2021-05-12 12:17 | Hospitalist Progress Note ---
Date of Service May 12, 2021 Assessment & Plan (1) Acute respiratory failure with hypoxia: Plan: 2/2 covid pneumonia, cont current therapy. (2) Pneumonia due to COVID-19 virus: Plan: Present on admission with worsening shortness of breath CXR showed biilateral lower lung predominant airspace opacities which may represent atelectasis, pneumonia, and/or aspiration. Continue dexamethasone Given duration of symptoms no indication for remdesivir. Continue oxygen supplement Lasix PRN to keep him overall net negative fluid balance. (3) HTN (hypertension): Plan: At goal continue lisinopril. (4) History of DVT (deep vein thrombosis): Plan: Continue Eliquis per home regimen. (5) BPH (benign prostatic hyperplasia): Plan: Continues tamsulosin per home regimen (6) History of CVA (cerebrovascular accident): Plan: -Continue statin and Eliquis per home regimen. (7) DVT prophylaxis: Plan: Eliquis DNR/DNI Dispo-to home when off oxygen. Patient feeling too ll to go home at this time. Started scheduled tylenol to help with overall malaise and discomfort. Malissa Negrete DO [facility] Hospitalist Admission and Anticipated Discharge Date Admission Date: May 06, 2021 Subjective 71-year-old man admitted with Covid pneumonia Patient remains hypoxic on 2 L/min nasal cannula He appears ill and is reporting not feeling well, seems to be eating a little more now. +cough but ths is improved, nonproductive Reports ambulating to an d from bathroom without any issue. States he feels too poor and weak to consider going home. We discussed that a two step can be considered at this point to determine his needs going home He verbalized understanding Review of Systems Review of Systems: All systems reviewed and negative except as indicated above Physical Exam Physical Exam: CONSTITUTIONAL: WNWD, vitals as above, NAD EYES: normal conjunctivae, no scleral icterus ENT: external ear and nose normal, MMM NECK: trachea midline RESPIRATORY: crackles at right base, no rales or wheezes, normal respiratory effort CARDIOVASCULAR: regular rate and rhythm, S1 and 2 heard without murmurs, gallops or rubs, no JVD, no peripheral edema GASTROINTESTINAL: soft, nontender, ND , no guarding MUSCULOSKELETAL: strength 5/5 throughout, head is normocephalic and atraumatic SKIN: warm and dry NEUROLOGIC: CN 2-12 grossly intact, normal cognition, normal speech, no gross focal deficits. PSYCHIATRIC: alert cooperative and oriented to person, place and time. Results & Data Results & Data ([facility]) Vital Signs (Past 12 Hours) Vital Signs Temp Pulse Resp BP Pulse Ox 05/12/21 07:33 36.8 C 83 18 127/84 91 05/12/21 03:20 36.8 C 69 16 125/82 92 Laboratory Results [facility] 05/12/21 06:21 Sodium 136 Potassium 3.9 Chloride 104 Carbon Dioxide 25 BUN 22 H Creatinine 0.90 Glucose 104 H Calcium 9.1 Liver Function 05/12/21 Range/Units 06:21 Total Bilirubin 0.7 (0.2-1) mg/dl AST 46 H (15-37) U/L ALT 140 H (12-78) U/L Alkaline Phosphatase 51 (45-117) U/L Albumin 2.8 L (3.4-5.0) gm/dl Medications Administered Current Inpatient Medications Acetaminophen (Acetaminophen 325 Mg Tab) 650 mg PO Q4H PRN PRN Reason: pain/fever Stop: 06/05/21 14:25 Albuterol (Albut/Ipratrop 3mg/0.5mg Neb 3 Ml Vial) 3 ml NEB Q4R PRN PRN Reason: Shortness Of Breath Or Wheezing Stop: 06/05/21 14:59 Last Admin: 05/10/21 05:49 Dose: 3 ml Documented by: Apixaban (Apixaban 2.5 Mg Tab) 2.5 mg PO BID YOSELIN Stop: 06/05/21 20:59 Last Admin: 05/12/21 07:59 Dose: 2.5 mg Documented by: Docusate Sodium (Docusate Sodium 100 Mg Cap) 100 mg PO BID PRN PRN Reason: Constipation Stop: 06/05/21 14:36 Guaifenesin/Codeine Phosphate (Guaifenesin/Codeine 200mg/20mg 10ml Udc) 10 ml PO Q6H PRN PRN Reason: Cough Stop: 06/05/21 17:21 Last Admin: 05/08/21 11:24 Dose: 10 ml Documented by: Dexamethasone 6 mg/ Syringe 1.5 mls @ 1 mls/min IV Q24H YOESLIN Stop: 06/06/21 08:59 Last Admin: 05/12/21 08:02 Dose: 1 mls/min Documented by: Lisinopril (Lisinopril 10 Mg Tab) 10 mg PO QAM [facility] Stop: 06/06/21 08:59 Last Admin: 05/12/21 07:59 Dose: 10 mg Documented by: Rosuvastatin Calcium (Rosuvastatin Calcium 20 Mg Tab) 20 mg PO DAILY YOSELIN Stop: 06/06/21 08:59 Last Admin: 05/12/21 07:59 Dose: 20 mg Documented by: Sodium Chloride (Sodium Chloride 0.65% Na Soln 45 Ml ([place])) 2 sprays NA Q2H PRN PRN Reason: dry nares/congestion Stop: 06/08/21 18:44 Tamsulosin HCl (Tamsulosin Hcl 0.4 Mg Cap) 0.8 mg PO [facility] Stop: 06/05/21 20:59 Last Admin: 05/11/21 20:51 Dose: 0.8 mg Documented by: Vitamin D (Cholecalciferol 1,000 Units 25 Mcg Tab) [facility] Stop: 06/09/21 08:59 Last Admin: 05/12/21 07:59 Dose: 1,000 units Documented by:
[2021-05-12] MEDS: ACETAMINOPHEN 500 MG TAB PO SCH ×2 (15:13→21:09)
[2021-05-12] MEDS: TAMSULOSIN HCL 0.4 MG CAP PO SCH (21:09)
[2021-05-13] MEDS: ACETAMINOPHEN 500 MG TAB PO SCH ×2 (06:07→14:18)
[2021-05-13] MEDS: APIXABAN 2.5 MG TAB PO SCH (08:48)
[2021-05-13] MEDS: CHOLECALCIFEROL 1,000 UNITS 25 MCG TAB PO SCH (08:49)
[2021-05-13] MEDS: lisinopril 10 MG TAB PO SCH (08:49)
[2021-05-13] MEDS: dexAMETHasone 6 MG in SYRINGE 0 ML IV SCH (08:49)
[2021-05-13] MEDS: ROSUVASTATIN CALCIUM 20 MG TAB PO SCH (08:49)
--- NOTE | 2021-05-13 13:11 | Hospitalist Progress Note ---
Date of Service May 13, 2021 Assessment & Plan (1) Acute respiratory failure with hypoxia: Plan: 2/2 covid pneumonia, cont current therapy. Remains asymptomatic (2) Pneumonia due to COVID-19 virus: Plan: Present on admission with worsening shortness of breath CXR showed biilateral lower lung predominant airspace opacities which may represent atelectasis, pneumonia, and/or aspiration. Continue dexamethasone Given duration of symptoms no indication for remdesivir. Continue oxygen supplement Lasix PRN to keep him overall net negative fluid balance. Maintain saturation without any oxygen Has had 2 years step O2 saturation test and he will not require any oxygen at rest or with ambulation Will be discharged home this afternoon (3) HTN (hypertension): Plan: At goal continue lisinopril. (4) History of DVT (deep vein thrombosis): Plan: Continue Eliquis per home regimen. (5) BPH (benign prostatic hyperplasia): Plan: Continues tamsulosin per home regimen (6) History of CVA (cerebrovascular accident): Plan: -Continue statin and Eliquis per home regimen. (7) DVT prophylaxis: Plan: Eliquis DNR/DNI Dispo-to home when off oxygen. Patient feeling too ll to go home at this time. Started scheduled tylenol to help with overall malaise and discomfort. Try to call the son but not been successful yet Admission and Anticipated Discharge Date Admission Date: May 06, 2021 Subjective 05/13/2021 The patient was seen and examined in medical floor and in the Covid room He remains asymptomatic of any shortness of breath, cough and does not require any oxygen to maintain saturation He wants to go home Review of Systems Review of Systems: All systems reviewed and are unremarkable except as noted below Respiratory: No shortness of breath and her cough at rest Physical Exam Physical Exam: Lying in bed comfortably Constitutional: well developed, well nourished, + ill appearing and average body habitus Eyes: PERRL, conjunctivae normal, anicteric sclerae ENMT: external ear and nose normal, oropharynx normal Neck: trachea midline, no thyromegaly Respiratory: + cough (Minimal cough at times); no respiratory distress Auscultation: + diminished lung sounds; no crackles and no wheezes Cardiovascular: Rate/Rhythm: regular rate and regular rhythm; not tachycardic Heart Sounds: normal S1 and normal S2; no murmur Extremities: no edema Gastrointestinal (Abdomen): Inspection/Auscultation: normal bowel sounds; abdomen not distended Musculoskeletal: No acute arthritis any joint Neurologic: , Awake and oriented x3. Generally weak and is minimally communicative. Nothing changed compared with prior Results & Data Results & Data ([facility]) Vital Signs (Past 12 Hours) Vital Signs Temp Pulse Pulse Pulse Resp Resp Resp 05/13/21 12:07 91 H 94 H 22 22 05/13/21 11:00 05/13/21 07:59 05/13/21 07:30 05/13/21 07:07 36.7 C 66 16 BP Pulse Ox Pulse Ox Pulse Ox Pulse Ox 05/13/21 12:07 90 91 05/13/21 11:00 90 05/13/21 07:59 91 05/13/21 07:30 94 05/13/21 07:07 137/79 94 Medications Administered Current Inpatient Medications Acetaminophen (Acetaminophen 500 Mg Tab) 1,000 mg PO Q8H YOSELIN Stop: 06/11/21 13:59 Last Admin: 05/13/21 06:07 Dose: 1,000 mg Documented by: Albuterol (Albut/Ipratrop 3mg/0.5mg Neb 3 Ml Vial) 3 ml NEB Q4R PRN PRN Reason: Shortness Of Breath Or Wheezing Stop: 06/05/21 14:59 Last Admin: 05/10/21 05:49 Dose: 3 ml Documented by: Apixaban (Apixaban 2.5 Mg Tab) 2.5 mg PO BID YOSELIN Stop: 06/05/21 20:59 Last Admin: 05/13/21 08:48 Dose: 2.5 mg Documented by: Docusate Sodium (Docusate Sodium 100 Mg Cap) 100 mg PO BID PRN PRN Reason: Constipation Stop: 06/05/21 14:36 Guaifenesin/Codeine Phosphate (Guaifenesin/Codeine 200mg/20mg 10ml Udc) 10 ml PO Q6H PRN PRN Reason: Cough Stop: 06/05/21 17:21 Last Admin: 05/08/21 11:24 Dose: 10 ml Documented by: Dexamethasone 6 mg/ Syringe 1.5 mls @ 1 mls/min IV Q24H YOSELIN Stop: 06/06/21 08:59 Last Admin: 05/13/21 08:49 Dose: 1 mls/min Documented by: Lisinopril (Lisinopril 10 Mg Tab) 10 mg PO QAM [facility] Stop: 06/06/21 08:59 Last Admin: 05/13/21 08:49 Dose: 10 mg Documented by: Rosuvastatin Calcium (Rosuvastatin Calcium 20 Mg Tab) 20 mg PO DAILY YOSELIN Stop: 06/06/21 08:59 Last Admin: 05/13/21 08:49 Dose: 20 mg Documented by: Sodium Chloride (Sodium Chloride 0.65% Na Soln 45 Ml ([place])) 2 sprays NA Q2H PRN PRN Reason: dry nares/congestion Stop: 06/08/21 18:44 Last Admin: 05/13/21 01:12 Dose: 2 sprays Documented by: Tamsulosin HCl (Tamsulosin Hcl 0.4 Mg Cap) 0.8 mg PO HS [facility] Stop: 06/05/21 20:59 Last Admin: 05/12/21 21:09 Dose: 0.8 mg Documented by: Vitamin D (Cholecalciferol 1,000 Units 25 Mcg Tab) 1,000 units PO QAM [facility] Stop: 06/09/21 08:59 Last Admin: 05/13/21 08:49 Dose: 1,000 units Documented by:
--- NOTE | 2021-05-14 08:55 | Discharge Summary ---
Date of Service May 14, 2021 Admission HPI Per Admitting Provider Chief Complaint: Generalized weakness, body aches Primary Care Provider: Hilda Spivey MD 71-year-old male with PMH history of CVA, HTN, GERD, BPH, history of DVT on Eliquis, and other problems to below who presents to the ED for evaluation of generalized weakness and body aches. Patient reports he has been feeling sick for the past couple of weeks. Reports being exposed to his son who tested positive for COVID-19. Patient is vaccinated against COVID-19 receiving his vaccinations in August 2020. Patient reports he also has had an intermittent nonproductive cough. No fevers or chills. Reports a very poor appetite however sense of taste and smell remains intact. No abdominal pain, nausea, vomiting, diarrhea. Denies urinary symptoms. In the ED, patient was hypoxic on room air at 88%. He is currently requiring 4 L of oxygen via nasal cannula. CXR shows bibasilar opacities. Patient has tested positive for COVID-19. Patient was given IV dexamethasone 10 mg and IVF.Allergies Allergy/AdvReac Type Severity Reaction Status Date / Time No Known Allergies Allergy Unverified 05/06/21 11:36 Home Medications Medication Instructions Recorded Confirmed Type apixaban 5 mg tablet (Eliquis) 2.5 mg PO BID 12/30/20 05/06/21 History docusate sodium 100 mg capsule 100 mg PO BID PRN 12/30/20 05/06/21 History (Colace) gabapentin 300 mg capsule 300 - 600 mg PO HS PRN 12/30/20 05/06/21 Hi story (Neurontin) lisinopril 10 mg tablet (Zestril) 10 mg PO QAM 12/30/20 History tamsulosin 0.4 mg capsule (Flomax) 0.8 mg PO HS 12/30/2005/06 History rosuvastatin 20 mg tablet 20 mg PO DAILY 05/06/21 05/06/21 Histo ry Admission Exam Per Admitting Provider Constitutional: WD/WN, vitals as above + ill appearing; no acute distress Eyes: PERRL, conjunctivae normal, anicteric sclerae ENMT: external ear and nose normal, oropharynx normal Respiratory: normal respiratory effort; no respiratory distress Auscultation: + crackles (Bibasilar) Cardiovascular: Rate/Rhythm: regular rate and regular rhythm Vessels: normal peripheral pulses Extremities: no edema Gastrointestinal (Abdomen): normal bowel sounds, soft, nontender, no hepatosplenomegaly Musculoskeletal: no cyanosis or clubbing, extremities motor strength 5/5 Skin: no rashes, warm and dry Neurologic: PERRL, EOMI, accommodation nl, no face palsy, no dysarthria Psychiatric: Orientation: alert and oriented x 3 Affect: + flat affect Principal Diagnosis Acute respiratory failure with hypoxia-improved, pneumonia due to COVID-19 virus infection Discharge Exam Lying in bed comfortably Constitutional well developed, well nourished, + ill appearing and average body habitus Eyes PERRL, conjunctivae normal, anicteric sclerae ENMT external ear and nose normal, oropharynx normal Neck trachea midline, no thyromegaly Respiratory + cough (Minimal cough at times); no respiratory distress Auscultation: + diminished lung sounds; no crackles and no wheezes Cardiovascular Rate/Rhythm: regular rate and regular rhythm; not tachycardic Heart Sounds: normal S1 and normal S2; no murmur Extremities: no edema Gastrointestinal (Abdomen) Inspection/Auscultation: normal bowel sounds; abdomen not distended Discharge Data Allergies Allergy/AdvReac Type Severity Reaction Status Date / Time No Known Allergies Allergy Unverified 05/06/21 11:36 Consultations 05/06/21 12:01 ED Decision to Admit Stat Ordered Studies 05/06/21 10:07 CT head/brain wo con Stat Hospital Course (1) Acute respiratory failure with hypoxia: 2/2 covid pneumonia, cont current therapy. Remains asymptomatic (2) Pneumonia due to COVID-19 virus: Present on admission with worsening shortness of breath CXR showed biilateral lower lung predominant airspace opacities which may represent atelectasis, pneumonia, and/or aspiration. Continue dexamethasone Given duration of symptoms no indication for remdesivir. Continue oxygen supplement Lasix PRN to keep him overall net negative fluid balance. Maintain saturation without any oxygen Has had 2 years step O2 saturation test and he will not require any oxygen at rest or with ambulation Will be discharged home this afternoon (3) HTN (hypertension): At goal continue lisinopril. (4) History of DVT (deep vein thrombosis): Continue Eliquis per home regimen. (5) BPH (benign prostatic hyperplasia): Continues tamsulosin per home regimen (6) History of CVA (cerebrovascular accident): -Continue statin and Eliquis per home regimen. (7) DVT prophylaxis: Eliquis DNR/DNI Dispo-to home when off oxygen. Patient feeling too ll to go home at this time. Started scheduled tylenol to help with overall malaise and discomfort. Try to call the son but not been successful yet Total Time Total Time Spent Total Time Spent (In Minutes): 35 minutes Discharge Plan Discharge Items Patient Disposition: Home - Self-Care Reason For Visit: COVID PNEUMONIA Discharge Diagnosis: Acute respiratory failure with hypoxia-improved, pneumonia due to COVID-19 virus infection Condition on Discharge: Fair Activity: Resume your previous activity Non-emergency contact: Primary Care Provider Call non-emergency contact if: you have any medication questions and your symptoms worsen Follow-up/Referrals: Hilda Rebollar MD [Primary Care Provider] - (Date & Time 05/20/2021 3:00 PM Provider Kirsten Parekh MD Department [facility] ) Diet: Heart Healthy Addtl Attending Provider Instructions: Please take precautions to avoid fall Please finish the course of dexamethasone as advised You will need to be in isolation until of this month as per instructions below Pending Studies at Discharge: No Stand-Alone Forms: [facility] Sm[facility] Cess[facility] Medications and DC Order Prescriptions: New dexamethasone 6 mg tablet 6 mg PO DAILY Qty: 4 RF: 0 Mucinex DM 30-600 mg tablet extended release 12 hr 1 tab PO BID PRN (Reason: cough) Qty: 20 RF: 0 Continued rosuvastatin 20 mg Tablet 20 mg PO DAILY RF: 0 tamsulosin [Flomax] 0.4 mg Capsule 0.8 mg PO HS RF: 0 lisinopril [Zestril] 10 mg Tablet 10 mg PO QAM RF: 0 docusate sodium [Colace] 100 mg Capsule 100 mg PO BID PRN (Reason: Constipation) RF: 0 gabapentin [Neurontin] 300 mg Capsule 300 - 600 mg PO HS PRN (Reason: Restless Leg(S)) RF: 0 Eliquis 5 mg Tablet 2.5 mg PO BID RF: 0 Discharge Orders: Discharge Order (Routine); Ordered 05/13/21 Ordered By: Derick Banda/Other Patient Handouts: 2019-nCoV Admission Data Admit Date/Time: 05/06/21 12:39 Attending Provider: Derick Asif Admit Provider: Malissa Negrete Primary Care Provider: Hilda Rebollar Other Providers: Malissa Negrete Other Interventions: Discharge Summary Assessment (RN) Last Done: 05/13/21 14:48
== END 2021-05-13 18:26 | disposition home or self-care (01) | DRG 177 ==
LOC: ED 09:15 → 2S 12:39 → SUATTDRO 12:39 → 2S 14:08 → 3E 05-12 16:09

== ENCOUNTER 2022-01-29 22:19 | Inpatient (IN) ==
[2022-01-29 23:33] LABS: Albumin Globulin Ratio 1.5 (0.9-2); Albumin Level 4.6 gm/dl (3.4-5.0); BUN Creatinine Ratio 15.4 (10-20); Bilirubin,Total 0.6 mg/dl (0.2-1.0); Calcium 9.8 mg/dl (8.5-10.1); Creatinine Clr Calc Pharmacy 60.1 ml/min; Est GFR (African American) 82.2 ml/min; Est GFR (Non-African American) 70.9 ml/min; Potassium 4.7 mmol/L (3.5-5.1); Total Protein 7.6 gm/dl (6.0-8.3)
[2022-01-29 23:35] LABS: Basophils # (auto) 0.06 K/uL (0-0.2); Basophils % (auto) 0.7 %; Eosinophils # (auto) 0.02 K/uL (0-0.50); Eosinophils % (auto) 0.2 %; Immature Granulocytes # (auto) 0.02 K/uL (0.00-0.02); Immature Granulocytes % (auto) 0.2 %; Lymphocytes # (auto) 1.44 K/uL (1.2-3.4); Lymphocytes % (auto) 15.8 %; Mean Corpuscular Hemoglobin 30.1 pg (25.0-34.0); Mean Corpuscular Hgb Conc 32.7 g/dL (32.0-36.0); Mean Corpuscular Volume 92.3 fL (80.0-100.0); Monocytes # (auto) 0.63 K/uL (0.24-0.82); Monocytes % (auto) 6.9 %; Neutrophils # (auto) 6.97 K/uL (1.4-6.5); Neutrophils % (auto) 76.2 %; Platelet Count 118 K/uL (130-400); RDW Coefficient of Variation 13.3 % (11.5-14.5); RDW Standard Deviation 45.4 fL (36.4-46.3); Red Blood Count 5.31 M/uL (4.63-6.08); White Blood Count 9.14 K/ul (4.8-10.8)
[2022-01-29 23:37] LABS: INR 1.1 (0.9-1.1); Partial Thromboplastin Ratio 0.9; Partial Thromboplastin Time 23.5 Seconds (21.0-31.0); Prothrombin Time 11.4 Seconds (9.0-12.0)
[2022-01-30] MEDS ORDERED: lisinopril 10 MG TAB PO STA (01:27)
--- NOTE | 2022-01-30 01:27 | Emergency Department Note ---
Impression & Plan Acute GI bleeding Admit to the [facility] ED Provider Note NAME: KONG RICHARDSON AGE: 71 SEX: M ARRIVES VIA: Walk-In INFORMANT: Patient ED PROVIDER(S): Leana Duval DO CHIEF COMPLAINT: Rectal bleeding PLAN: Disposition: Admit to the [facility] Condition: Stable MEDICAL DECISION MAKING: This is a 71-year-old male patient presents to the emergency department with abdominal pain and rectal bleeding. The patient takes Eliquis for history of DVT/PE. He was hemodynamically stable here in the emergency department. His H/H were stable. Blood pressure was initially elevated but came down nicely on its own. [facility] for further management. Triage Nursing notes reviewed and agree with them. Vital Signs: reviewed and remarkable for hypertension and bradycardia Differential diagnosis: Anemia, GI bleeding, diverticulitis, colitis Diagnostics interpreted by me: Cardiac Monitoring: Sinus bradycardia at a rate of 54 Laboratory studies: See below HPI: 71/M arrives for evaluation of abdominal pain and GI bleeding. The patient developed some crampy abdominal pain around 430 this afternoon. This was followed by an episode of diaphoresis. Patient rested into around 7 PM when he had another diarrheal bowel movement that was bloody. Since that time, the patient had multiple bloody bowel movements. ROS: See above HPI for pertinent positives & negatives. A total of 10 systems re viewed and were otherwise negative. PAST MEDICAL HISTORY:Hypertension, stroke, PE/DVT. Patient does take Eliquis. PAST SURGICAL HISTORY:See Below FAMILY HISTORY:See Below SOCIAL HISTORY:See Below HOME MEDICATIONS:See list ALLERGIES:See list VITALS:See Below PHYSICAL EXAMINATION: HEENT: Head - normocephalic and atraumatic Pupils are equal, round, and reactive to light. Extraocular eye muscles are intact, and sclera are anicteric. Nose - moist nasal mucosa without discharge. Mouth - moist buccal mucosa. Oropharynx is nonerythematous and there is no tonsillar exudate or edema noted. Neck: Supple; no JVD or cervical lymphadenopathy Heart: Regular rate and rhythm. There is a normal S1 and S2 with no murmurs, clicks, or gallops appreciated. Lungs: Clear to auscultation bilaterally with no wheezes, rales, or rhonchi. Abdomen: Soft, completely nontender, nondistended, with good bowel sounds. There are no palpable pulsatile masses or hepatosplenomegaly. There is no guard ing, rigidity, or rebound noted. Extremities: No evidence of cyanosis, clubbing, or edema. There are easily palpable peripheral pulses. Skin: warm and dry with good turgor and no rashes. ED COURSE: Times/Reassessments: 0025: The patient was evaluated in room C6. A complete history and physical was performed. Laboratory studies were drawn as above. An order was placed for continuous cardiac monitoring. The patient was in a sinus bradycardia at a rate of 54. The patient had a bowel movement here in the emergency department which was melanotic. Leana Duval DO Past Med/Surg History Medical History Ascending cholangitis BPH (benign prostatic hyperplasia) GERD (gastroesophageal reflux disease) History of CVA (cerebrovascular accident) History of DVT (deep vein thrombosis) HTN (hypertension) Incomplete right bundle branch block Surgical History History of colonoscopy 2017-diverticulosis Hx laparoscopic cholecystectomy (01/02/21) Laparoscopic Cholecystectomy Dr. Nguyen 01/02/21 Family History Mother Cancer stomach Sister Cancer stomach Father Stroke Social History Smoking Status: Never smoker Hx Alcohol Use: No Hx Substance Use: No Preferred Language: Azeri Communication Ability: Effective Tobacco Checkout Clerk Required: No Beliefs That Will Affect Care: None marital status: Single Current Living Situation: Alone Other Information That Helps Us Care for You: No Feels Safe at Home: Yes Safety Concerns: Feels Safe At This Time Assistive Devices: None Allergies Allergies Allergy/AdvReac Type Severity Reaction Status Date / Time doxycycline Allergy Intermediate HIVES, Verified 01/30/22 00:44 DIZZINESS, DIARRHEA Home Meds Home Medications Medication Instructions Recorded Confirmed apixaban 5 mg tablet (Eliquis) 2.5 mg PO BID 12/30/20 01/30/22 docusate sodium 100 mg capsule 100 mg PO AMPM 12/30/20 01/30/22 (Colace) gabapentin 300 mg capsule 300 mg PO BID 12/30/20 01/30/22 (Neurontin) lisinopril 10 mg tablet (Zestril) 10 mg PO QAM 12/30/20 01/30/22 tamsulosin 0.4 mg capsule (Flomax) 0.8 mg PO HS 12/30/20 01/30/22 lansoprazole 30 mg delayed 30 mg PO DAILY 10/20/21 01/30/22 release,disintegrating tablet rosuvastatin 40 mg tablet 20 mg PO DAILY 10/20/21 01/30/22 acetaminophen 325 mg tablet 650 mg PO DIRECTED PRN 01/30/22 01/30/22 (Tylenol) PAIN/FEVER finasteride 5 mg tablet 5 mg PO DAILY 01/30/22 01/30/22 spironolactone 25 mg tablet 12.5 mg PO DAILY 01/30/22 01/30/22 Results & Data (ED) Vital Signs Vital Signs - 24 hr 01/29/22 22:25 01/30/22 00:34 01/30/22 00:59 Temperature 36.4 C L Temperature Source Temporal Artery Scan Pulse Rate - Lying 55 L Pulse Rate - Sitting 64 Pulse Rate - Standing 56 L Pulse Rate 56 L 55 L Pulse Rate from SpO2 Sensor Respiratory Rate 20 18 Blood Pressure - Lying 170/87 H Blood Pressure - Sitting 149/82 H Blood Pressure- Standing 165/85 H Blood Pressure 160/83 H Blood Pressure Mean 108 Pulse Oximetry 95 97 Oxygen Delivery Method Room Air Room Air Sepsis Recent Fever Within 48 Hours No Sepsis New/Unexplained Change in Mental Status No Sepsis Action Taken by Nursing No Action Required 01/30/22 01:00 01/30/22 02:15 Temperature Temperature Source Pulse Rate - Lying Pulse Rate - Sitting Pulse Rate - Standing Pulse Rate 54 L 61 Pulse Rate from SpO2 Sensor 54 L 61 Respiratory Rate 18 20 Blood Pressure - Lying Blood Pressure - Sitting Blood Pressure- Standing Blood Pressure 163/87 H 156/83 H Blood Pressure Mean 112 107 Pulse Oximetry 97 96 Oxygen Delivery Method Room Air Room Air Sepsis Recent Fever Within 48 Hours Sepsis New/Unexplained Change in Mental Status Sepsis Action Taken by Nursing Laboratory Data Result diagrams: 01/29/22 23:01 01/29/22 23:01 Lab Results 01/29/22 01/29/22 01/29/22 Range/Units 23:01 23:01 23:01 WBC 9.14 (4.8-10.8) K/ul RBC 5.31 (4.63-6.08) M/uL Hgb 16.0 (14.0-18.0) g/dl Hct 49.0 (40.1-51.0) % MCV 92.3 (80.0-100.0) fL MCH 30.1 (25.0-34.0) pg MCHC 32.7 (32.0-36.0) g/dL RDW Std Deviation 45.4 (36.4-46.3) fL RDW Coeff of Meenakshi 13.3 (11.5-14.5) % Plt Count 118 L (130-400) K/uL MPV 13.0 H (9.4-12.4) fL Immature Gran % (Auto) 0.2 % Neut % (Auto) 76.2 % Lymph % (Auto) 15.8 % Wagoner % (Auto) 6.9 % Eos % (Auto) 0.2 % Baso % (Auto) 0.7 % Neut # (Auto) 6.97 H (1.4-6.5) K/uL Lymph # (Auto) 1.44 (1.2-3.4) K/uL Wagoner # (Auto) 0.63 (0.24-0.82) K/uL Eos # (Auto) 0.02 (0-0.50) K/uL Baso # (Auto) 0.06 (0-0.2) K/uL Immature Gran # (Auto) 0.02 (0.00-0.02) K/uL PT 11.4 (9.0-12.0) Seconds INR 1.1 (0.9-1.1) APTT 23.5 (21.0-31.0) Seconds PTT Ratio 0.9 Sodium 139 (136-145) mmol/L Potassium 4.7 (3.5-5.1) mmol/L Chloride 105 (98-107) mmol/L Carbon Dioxide 28 (21-32) mmol/L Anion Gap 6 (3-11) BUN 16 (6-23) mg/dl Creatinine 1.04 (0.6-1.4) mg/dl Est Cr Clr Drug Dosing 60.1 ml/min Est GFR ( Amer) 82.2 ml/min Est GFR (Non-Af Amer) 70.9 ml/min BUN/Creatinine Ratio 15.4 (10-20) Glucose 120 H (70-99(Fasting)) mg/dl Calcium 9.8 (8.5-10.1) mg/dl Magnesium 1.9 (1.7-2.4) mg/dl Total Bilirubin 0.6 (0.2-1.0) mg/dl AST 26 (13-39) U/L ALT 35 (7-52) U/L Alkaline Phosphatase 48 (34-104) U/L Total Protein 7.6 (6.0-8.3) gm/dl Albumin 4.6 (3.4-5.0) gm/dl Globulin 3.0 (2.5-4.0) gm/dl Albumin/Globulin Ratio 1.5 (0.9-2) POC Stool Occult Blood (Negative) SARS-CoV-2, RNA, NAAT (NEGATIVE) Blood Type Antibody Screen 01/29/22 01/30/22 01/30/22 Range/Units 23:13 00:59 01:27 WBC (4.8-10.8) K/ul RBC (4.63-6.08) M/uL Hgb (14.0-18.0) g/dl Hct (40.1-51.0) % MCV (80.0-100.0) fL MCH (25.0-34.0) pg MCHC (32.0-36.0) g/dL RDW Std Deviation (36.4-46.3) fL RDW Coeff of Meenakshi (11.5-14.5) % Plt Count (130-400) K/uL MPV (9.4-12.4) fL Immature Gran % (Auto) % Neut % (Auto) % Lymph % (Auto) % Wagoner % (Auto) % Eos % (Auto) % Baso % (Auto) % Neut # (Auto) (1.4-6.5) K/uL Lymph # (Auto) (1.2-3.4) K/uL Wagoner # (Auto) (0.24-0.82) K/uL Eos # (Auto) (0-0.50) K/uL Baso # (Auto) (0-0.2) K/uL Immature Gran # (Auto) (0.00-0.02) K/uL PT (9.0-12.0) Seconds INR (0.9-1.1) APTT (21.0-31.0) Seconds PTT Ratio Sodium (136-145) mmol/L Potassium (3.5-5.1) mmol/L Chloride (98-107) mmol/L Carbon Dioxide (21-32) mmol/L Anion Gap (3-11) BUN (6-23) mg/dl Creatinine (0.6-1.4) mg/dl Est Cr Clr Drug Dosing ml/min Est GFR ( Amer) ml/min Est GFR (Non-Af Amer) ml/min BUN/Creatinine Ratio (10-20) Glucose (70-99(Fasting)) mg/dl Calcium (8.5-10.1) mg/dl Magnesium (1.7-2.4) mg/dl Total Bilirubin (0.2-1.0) mg/dl AST (13-39) U/L ALT (7-52) U/L Alkaline Phosphatase (34-104) U/L Total Protein (6.0-8.3) gm/dl Albumin (3.4-5.0) gm/dl Globulin (2.5-4.0) gm/dl Albumin/Globulin Ratio (0.9-2) POC Stool Occult Blood Positive A (Negative) SARS-CoV-2, RNA, NAAT NEGATIVE (NEGATIVE) Blood Type A Negative Antibody Screen NEGATIVE Administered Medications Sodium Chloride (Nss 1000ml) 1,000 mls @ 50 mls/hr IV .Q20H ONE Stop: 01/30/22 21:27 Last Admin: 01/30/22 02:20 Dose: 50 mls/hr Documented By: CRISTOPHER Discontinued Medications Ceftriaxone Sodium (Rocephin) 2,000 mg in 70 mls @ 140 mls/hr IV NOW STA Stop: 01/30/22 03:44 Last Infusion: 01/30/22 04:45 Dose: 0 mls/hr Documented By: Admin: 01/30/22 03:57 Dose: 140 mls/hr Documented By: CRISTOPHER Metronidazole (Flagyl) 500 mg in 100 mls @ 100 mls/hr IV NOW STA Stop: 01/30/22 04:14 Last Infusion: 01/30/22 05:07 Dose: 0 mls/hr Documented By: Admin: 01/30/22 03:59 Dose: 100 mls/hr Documented By: CRISTOPHER Ioversol (Optiray 300 100ml) 90 ml IV ONCE ONE Stop: 01/30/22 02:05 Last Admin: 01/30/22 02:07 Dose: 90 ml Documented By: SULLY Lisinopril (Lisinopril 10 Mg Tab) 10 mg PO NOW STA Stop: 01/30/22 01:28 Last Admin: 01/30/22 02:18 Dose: 10 mg Documented By: CRISTOPHER Morphine Sulfate (Morphine Sulfate 2 Mg/Ml Carp) 2 mg IV NOW STA Stop: 01/30/22 01:32 Last Admin: 01/30/22 01:56 Dose: 2 mg Documented By: CRISTOPHER Discharge Plan Visit Data Chief Complaint: Rectal Bleed Stated Complaint: bleeding ED Provider: Leana Duval Discharge Problem: Acute GI bleeding
[2022-01-30] MEDS ORDERED: SODIUM CHLORIDE 0.9% 1000ML 1,000 ML IV ONE (01:28)
[2022-01-30] MEDS ORDERED: PROMETHAZINE HCL 12.5 MG in SODIUM CHLORIDE 0.9% 50 ML IV PRN (01:31)
[2022-01-30] MEDS ORDERED: MoRPHine SULFATE 2 MG/ML CARP IV STA (01:31)
[2022-01-30 01:49] LABS: Magnesium 1.9 mg/dl (1.7-2.4)
[2022-01-30] MEDS ORDERED: OPTIRAY 300 100mL IV ONE (02:04)
[2022-01-30] MEDS ORDERED: cefTRIAXone SODIUM 2,000 MG/70 ML BAG IV STA (03:15)
[2022-01-30] MEDS ORDERED: metroNIDAZOLE 500 MG/100 ML BAG IV STA (03:15)
--- NOTE | 2022-01-30 03:15 | History & Physical Report ---
Date of Service January 30, 2022 Assessment & Plan (1) Colitis: Plan: History recurrent DVT on Eliquis Patient currently hemodynamically stable/nontoxic. Rule out C. difficile hypertension, slight elevated hyperlipidemia on statin Rx hx CVA episodic thrombocytopenia Hyperglycemia rule out DM past tobacco abuse GMF Clear liquid diet Ceftriaxone, Flagyl Stool C. difficile GI consult Re: L GIB Appropriate to hold Eliquis for now Follow H&H, transfuse PRBC if hemoglobin less than 8 and or for symptomatic anemia Check hemoglobin A1c DVT prophylaxis. SCDs while Eliquis on hold Full code Text document was generated using [employer] voice recognition software. It may contain grammatical or spelling errors. Kindly contact undersigned for clarification of any documentation item in question. History of Present Illness Chief Complaint: Bloody diarrhea Primary Care Provider: Hilda Orosco MD History obtained from patient and records. Medical history significant for hypertension, hyperlipidemia, CVA, recurrent DVT on Eliquis, sigmoid diverticulosis, episodic thrombocytopenia, past tobacco abuse. Last confinement April 2021 for respiratory failure secondary to severe COVID-19 pneumonia. Yesterday, patient noted achy abdominal pain associated with watery diarrhea later noted to be bloody. No fever, no chills, no chest pain, no shortness of breath. No prior episodes. No recent antibiotic Rx/sick contacts/out-of-town travel. Patient consulted ER for evaluation. 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 Allergies Allergy/AdvReac Type Severity Reaction Status Date / Time doxycycline Allergy Intermediate HIVES, Verified 01/30/22 00:44 DIZZINESS, DIARRHEA Home Medications Medication Instructions Recorded Confirmed Type apixaban 5 mg tablet (Eliquis) 2.5 mg PO BID 12/30/20 01/30/22 History docusate sodium 100 mg capsule 100 mg PO AMPM 12/30/20 01/30/22 History (Colace) gabapentin 300 mg capsule 300 mg PO BID 12/30/20 01/30/22 History (Neurontin) lisinopril 10 mg tablet (Zestril) 10 mg PO QAM 12/30/20 01/30/22 History tamsulosin 0.4 mg capsule (Flomax) 0.8 mg PO HS 12/30/20 01/30/22 History lansoprazole 30 mg delayed 30 mg PO DAILY 10/20/21 01/30/22 History release,disintegrating tablet rosuvastatin 40 mg tablet 20 mg PO DAILY 10/20/21 01/30/22 History acetaminophen 325 mg tablet 650 mg PO DIRECTED PRN 01/30/22 01/30/22 History (Tylenol) PAIN/FEVER finasteride 5 mg tablet 5 mg PO DAILY 01/30/22 01/30/22 History spironolactone 25 mg tablet 12.5 mg PO DAILY 01/30/22 01/30/22 History Past Med/Surg History Medical History Ascending cholangitis BPH (benign prostatic hyperplasia) GERD (gastroesophageal reflux disease) History of CVA (cerebrovascular accident) History of DVT (deep vein thrombosis) HTN (hypertension) Incomplete right bundle branch block Surgical History History of colonoscopy 2017-diverticulosis Hx laparoscopic cholecystectomy (01/02/21) Laparoscopic Cholecystectomy Dr. 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 Beliefs That Will Affect Care: None marital status: Single Current Living Situation: Alone Other Information That Helps Us Care for You: No Feels Safe at Home: Yes Safety Concerns: Feels Safe At This Time Assistive Devices: None Review of Systems Review of Systems: As per HPI, all other systems reviewed and negative Physical Exam Physical Exam: GENERAL: Comfortable, pleasant, no respiratory distress SKIN: Normal color, warm HEENT: Whitney palpebral conjunctivae, no ptosis, dry buccal mucosa NECK : Supple, no tenderness CHEST : CTA, no tenderness HEART : Bradycardic, no obvious murmurs ABDOMEN: Some distention, central abdominal tenderness EXTREMITIES : No LE swelling/tenderness, no other conspicuous deformities noted NEUROLOGIC : Coherent, no facial asymmetry, no other gross focality Results & Data Results & Data ([facility]) Vital Signs (Past 12 Hours) Vital Signs Temp Pulse Resp BP Pulse Ox O2 Del Method 01/30/22 02:15 61 20 156/83 H 96 Room Air 01/30/22 01:00 54 L 18 163/87 H 97 Room Air 01/30/22 00:59 55 L 18 97 Room Air 01/29/22 22:25 36.4 C L 56 L 20 160/83 H 95 Room Air Laboratory Results Laboratory Results WBC 9.14 K/ul (4.8-10.8) 01/29/22 23:01 RBC 5.31 M/uL (4.63-6.08) 01/29/22 23:01 Hgb 16.0 g/dl (14.0-18.0) 01/29/22 23: Hct 49.0 % (40.1-51.0) 01/29/22 23: MCV 92.3 fL (80.0-100.0) 01/29/22 23: MCH 30.1 pg (25.0-34.0) 01/29/22 23: MCHC 32.7 g/dL (32.0-36.0) 01/29/22 23:01 RDW Std Deviation 45.4 fL (36.4-46.3) 01/29/22 23:01 RDW Coeff of Meenakshi 13.3 % (11.5-14.5) 01/29/22 23: Plt Count 118 K/uL (130-400) L 01/29/22 23:01 MPV 13.0 fL (9.4-12.4) H 01/29/22 23:01 Immature Gran % (Auto) 0.2 % 01/29/22 23:01 Neut % (Auto) 76.2 % 01/29/22 23:01 Lymph % (Auto) 15.8 % 01/29/22 23:01 Green % (Auto) 6.9 % 01/29/22 23: Eos % (Auto) 0.2 % 01/29/22 23: Baso % (Auto) 0.7 % 01/29/22 23:01 Neut # (Auto) 6.97 K/uL (1.4-6.5) H 01/29/22 23:01 Lymph # (Auto) 1.44 K/uL (1.2-3.4) 01/29/22 23: Green # (Auto) 0.63 K/uL (0.24-0.82) 01/29/22 23: Eos # (Auto) 0.02 K/uL (0-0.50) 01/29/22 23: Baso # (Auto) 0.06 K/uL (0-0.2) 01/29/22 23: Immature Gran # (Auto) 0.02 K/uL (0.00-0.02) 01/29/22 23: PT 11.4 Seconds (9.0-12.0) 01/29/22 23: INR 1.1 (0.9-1.1) 01/29/22 23: APTT 23.5 Seconds (21.0-31.0) 01/29/22 23: PTT Ratio 0.9 01/29/22 23: Sodium 139 mmol/L (136-145) 01/29/22 23: Potassium 4.7 mmol/L (3.5-5.1) 01/29/22 23: Chloride 105 mmol/L (98-107) 01/29/22 23: Carbon Dioxide 28 mmol/L (21-32) 01/29/22 23: Anion Gap 6 (3-11) 01/29/22 23: BUN 16 mg/dl (6-23) 01/29/22 23: Creatinine 1.04 mg/dl (0.6-1.4) 01/29/22 23: Est Cr Clr Drug Dosing 60.1 ml/min 01/29/22 23: Est GFR ( Amer) 82.2 ml/min 01/29/22 23: Est GFR (Non-Af Amer) 70.9 ml/min 01/29/22 23: BUN/Creatinine Ratio 15.4 (10-20) 01/29/22 23: Glucose 120 mg/dl (70-99(Fasting)) H 01/29/22 23: Calcium 9.8 mg/dl (8.5-10.1) 01/29/22 23: Magnesium 1.9 mg/dl (1.7-2.4) 01/29/22 23: Total Bilirubin 0.6 mg/dl (0.2-1.0) 01/29/22 23:01 AST 26 U/L (13-39) 01/29/22 23: ALT 35 U/L (7-52) 01/29/22 23: Alkaline Phosphatase 48 U/L (34-104) 01/29/22 23: Total Protein 7.6 gm/dl (6.0-8.3) 01/29/22 23: Albumin 4.6 gm/dl (3.4-5.0) 01/29/22 23: Globulin 3.0 gm/dl (2.5-4.0) 01/29/22 23: Albumin/Globulin Ratio 1.5 (0.9-2) 01/29/22 23:01 POC Stool Occult Blood Positive (Negative) A 01/30/22 00:59 SARS-CoV-2, RNA, NAAT NEGATIVE (NEGATIVE) 01/30/22 01:27 Blood Type A Negative 01/29/22 23:13 Antibody Screen NEGATIVE 01/29/22 23:[address] abdomen pelvis initial read: Mild sigmoid diverticulosiswithout inflammation. Equivocal slight thickening of the distal transverse colon. This mayreflect artifact related to underdistention however a focal nonspecific colitis is not excluded. Further GI evaluation is recommended. In addition, if clinical suspicion exists for GI bleed, a tagged red blood cell studywould be recommended to assess for activityand location of bleed If clinical suspicion exists for GI bleed, would recommend.
[2022-01-30] MEDS ORDERED: ACETAMINOPHEN 325 MG TAB PO PRN (03:39)
[2022-01-30] MEDS ORDERED: traMADol HCL 50 MG TABLET PO PRN (03:39)
[2022-01-30 05:50] LABS: Basophils # (auto) 0.03 K/uL (0-0.2); Basophils % (auto) 0.3 %; Eosinophils # (auto) 0.01 K/uL (0-0.50); Eosinophils % (auto) 0.1 %; Hematocrit (blood only) 46.1 % (40.1-51.0); Hemoglobin 14.9 g/dl (14.0-18.0); Immature Granulocytes # (auto) 0.03 K/uL (0.00-0.02); Immature Granulocytes % (auto) 0.3 %; Lymphocytes # (auto) 1.28 K/uL (1.2-3.4); Lymphocytes % (auto) 13.4 %; Mean Corpuscular Hemoglobin 29.7 pg (25.0-34.0); Mean Corpuscular Hgb Conc 32.3 g/dL (32.0-36.0); Monocytes % (auto) 6.3 %; Neutrophils # (auto) 7.63 K/uL (1.4-6.5); Neutrophils % (auto) 79.6 %; Platelet Count 105 K/uL (130-400); RDW Coefficient of Variation 13.3 % (11.5-14.5); RDW Standard Deviation 44.8 fL (36.4-46.3); Red Blood Count 5.01 M/uL (4.63-6.08); White Blood Count 9.58 K/ul (4.8-10.8)
[2022-01-30 06:17] LABS: BUN Creatinine Ratio 17.1 (10-20); Creatinine Clr Calc Pharmacy 76.3 ml/min; Est GFR (African American) 101.7 ml/min; Est GFR (Non-African American) 87.7 ml/min; Potassium 4.1 mmol/L (3.5-5.1)
[2022-01-30 06:40] LABS: Adenovirus F 40/41 PCR Not Detected (NotDetected); Astrovirus PCR Not Detected (NotDetected); Campylobacter PCR Not Detected (NotDetected); Cryptosporidium PCR Not Detected (NotDetected); Cyclospora cayetanensis PCR Not Detected (NotDetected); Entamoeba histolytica PCR Not Detected (NotDetected); Enteroaggregative E.coli(EAEC) Not Detected (NotDetected); Enteropathogenic E.coli (EPEC) Not Detected (NotDetected); Enterotoxigenic E.coli (ETEC) Not Detected (NotDetected); Giardia lamblia PCR Not Detected (NotDetected); Norovirus GI/GII PCR Not Detected (NotDetected); Plesiomonas shigelloides PCR Not Detected (NotDetected); Rotavirus A PCR Not Detected (NotDetected); Salmonella PCR Not Detected (NotDetected); Sapovirus PCR Not Detected (NotDetected); Shiga-like Toxin E.coli (STEC) Not Detected (NotDetected); Shigella/Enteroinvasive E.coli Not Detected (NotDetected); Vibrio cholerae PCR Not Detected (NotDetected); Vibrio species PCR Not Detected (NotDetected); Yersinia enterocolitica PCR Not Detected (NotDetected)
[2022-01-30 08:03] LABS: Cdiff Antigen Negative; Cdiff Toxin A+B Negative Cdiff Toxin (Negative)
[2022-01-30] MEDS: GABAPENTIN 300 MG CAP PO SCH ×2 (08:11→19:43)
[2022-01-30] MEDS: ROSUVASTATIN CALCIUM 20 MG TAB PO SCH (08:11)
[2022-01-30] MEDS: lisinopril 10 MG TAB PO SCH (08:11)
[2022-01-30] MEDS: LANSOPRAZOLE 30 MG SOLTAB PO SCH (08:12)
[2022-01-30] MEDS: FINASTERIDE 5 MG TAB PO SCH (08:12)
[2022-01-30] MEDS: MoRPHine SULFATE 2 MG/ML CARP IV PRN ×2 (08:16→19:41)
[2022-01-30 08:25] LABS: Estimated Average Glucose 137 mg/dl; Hemoglobin A1C 6.4 % (4.5-5.6)
--- NOTE | 2022-01-30 08:43 | CT Scan Report ---
ABDOMEN AND PELVIS CT WITH IV CONTRAST CT DOSE: 405.00 mGy.cm HISTORY: Acute generalized abdominal pain with bloody stool abd pain, lgib TECHNIQUE: Multiaxial CT images of the abdomen and pelvis were performed following the IV administrat ion of 90 cc of Optiray, A dose lowering technique was utilized adhering to the principles of ALARA. COMPARISON STUDY: CT abdomen and pelvis 12/30/2020 FINDINGS: Mild coronary artery calcifications. The heart is mildly enlarged. Mild right hemidiaphragm atic elevation with linear subsegmental bibasilar atelectasis/scarring. There is no pneumatosis or pn eumoperitoneum. The spleen, adrenal glands and liver appear unremarkable. Interval cholecystectomy. Patent portal vei n. There are a few scattered calcifications noted within the pancreas which may represent sequela of chronic pancreatitis. There is mild nonspecific bilateral perinephric stranding. There are a few subc entimeter hypodensities of the left kidney which are too small to characterize however likely represe nt cysts. No renal or ureteral calculi or hydronephrosis. Mild urinary bladder wall thickening with p artial distention. Mild prostamegaly. Atherosclerosis of the aorta without aneurysm. No lymphadenopat hy. Duodenal diverticulum. No bowel obstruction. Colonic diverticulosis without acute diverticulitis. The re is wall thickening involving the mid to distal transverse colon with partial distention. Noninflam ed appendix. No ascites. Degenerative changes of the spine, pelvis and hips. IMPRESSION: 1. No bowel obstruction. 2. Wall thickening of the mid to distal transverse colon may be secondary to partial distention versu s a mild nonspecific colitis. Findings could be correlated with colonoscopy if of further clinical co ncern. 3. Colonic diverticulosis without acute diverticulitis. 4. Additional findings as above. ACT 112: Negative or not required by law. The above report was generated using voice recognition software. It may contain grammatical, syntax o r spelling errors. Electronically signed by: Rickey Bear M.D. 01/30/2022 8:41 AM
--- NOTE | 2022-01-30 10:26 | Gastrointestinal Consultation ---
Date of Consultation January 30, 2022 Assessment & Plan (1) Lower GI bleeding: Patient is a 71 years old male seen for bloody diarrhea which started last evening. Denies risk factors including prior antibiotic use, sick contact, contact with livestock's, well water. CT abdomen pelvis showed signs of wall thickening in the transverse colon area, colonic diverticulosis without diverticulitis. Stool studies showed C. difficile gene positive but toxin negative. DDX: infectious/ischemic colitis, diverticular bleeding, less likely IBD - CL diet - IVF support - Antibx to include enteric coverage - Consider Vancomycin therapy if diarrhea continues (+Cdiff gene, - toxin) - Symptomatic management otherwise - Recommend outpt Colonoscopy in 4 to 6 week's time Supervising Physician Co-Signing Physician Notes Attg add: I interviewed and examined pt, reviewed chart and labs. Pt with abrupt onset of bloody diarrhea/rectal bleeding, also mild lower abd pain. Suspect ischemic colitis, ddx = infection, tics. Recommendations as above. History of Present Illness Reason for Consultation: Lower GI bleed Requesting Physician: Dr. Shameka Aguirre Attending Physician: Dr. Toño Lopez History of Present Illness Pt is a 71 yo male w PMHx of HTN, HLD, CVA, DVT on Eliquis, thromboyctopenia, who presented to the ED yesterday with complaints of lower abdominal pain, bloody diarrhea. Patient states that he was feeling well and in his usual state of health until yesterday afternoon around 3 PM when he was adrian beans and he suddenly felt sweaty, fainting, and had lower abdominal pain. He then proceeded to have diarrhea. Later on that evening he had another episode of diarrhea and noticed large amount of blood. He is unsure if he had fainted but he felt weak and sweaty again. Son eventually took him to the ER for evaluation. Noted that his blood count is normal on admission as well as this morning. BUN also normal. VS stable wo hypotension. CT of the abdomen and pelvis showed thickenin g of the mid transverse colon area. Colonic diverticulosis wo diverticulitis. Stool studies negative except positive C. difficile gene, negative toxin. Overnight he reports 1 episode of bowel movement that was also bloody diarrhea, again another episode this morning as well. He currently denies any fevers, chills, feels quite weak and also still complaining of lower abdominal cramping. No nausea or vomiting. History of choledocholithiasis status post removal via ERCP in 2020. Colonoscopy in 2017 showed signs of diverticulosis in the sigmoid colon area. Denies any recent antibiotics, sick contact, well water, livestock's. Traveled to [place] to get beans to can with sister yesterday. Allergies Allergy/AdvReac Type Severity Reaction Status Date / Time doxycycline Allergy Intermediate HIVES, Verified 01/30/22 00:44 DIZZINESS, DIARRHEA Home Medications Medication Instructions Recorded Confirmed Type apixaban 5 mg tablet (Eliquis) 2.5 mg PO BID 12/30/20 01/30/22 History docusate sodium 100 mg capsule 100 mg PO AMPM 12/30/20 01/30/22 History (Colace) gabapentin 300 mg capsule 300 mg PO BID 12/30/20 01/30/22 History (Neurontin) lisinopril 10 mg tablet (Zestril) 10 mg PO QAM 12/30/20 01/30/22 History tamsulosin 0.4 mg capsule (Flomax) 0.8 mg PO HS 12/30/20 01/30/22 History lansoprazole 30 mg delayed 30 mg PO DAILY 10/20/21 01/30/22 History release,disintegrating tablet rosuvastatin 40 mg tablet 20 mg PO DAILY 10/20/21 01/30/22 History acetaminophen 325 mg tablet 650 mg PO DIRECTED PRN 01/30/22 01/30/22 History (Tylenol) PAIN/FEVER finasteride 5 mg tablet 5 mg PO DAILY 01/30/22 01/30/22 History spironolactone 25 mg tablet 12.5 mg PO DAILY 01/30/22 01/30/22 History Patient History Medical History Ascending cholangitis BPH (benign prostatic hyperplasia) GERD (gastroesophageal reflux disease) History of CVA (cerebrovascular accident) History of DVT (deep vein thrombosis) HTN (hypertension) Incomplete right bundle branch block Surgical History History of colonoscopy 2017-diverticulosis Hx laparoscopic cholecystectomy (01/02/21) Laparoscopic Cholecystectomy Dr. Nguyen 01/02/21 Family History Mother Cancer stomach Sister Cancer stomach Father Stroke Social History Smoking Status: Never smoker Hx Alcohol Use: No Hx Substance Use: No Preferred Language: Upper Sorbian Communication Ability: Effective Ripsawyer Required: No Beliefs That Will Affect Care: None marital status: Single Current Living Situation: Alone Other Information That Helps Us Care for You: No Feels Safe at Home: Yes Safety Concerns: Feels Safe At This Time Assistive Devices: None Review of Systems Review of Systems: All systems reviewed & are unremarkable except as noted in HPI & below Physical Exam Constitutional: WD/WN, vitals as above well groomed, cooperative and comfortable Eyes: PERRL, conjunctivae normal, anicteric sclerae ENMT: external ear and nose normal, oropharynx normal Respiratory: normal respiratory effort, lungs clear to auscultation Cardiovascular: RRR, no murmur, no edema Gastrointestinal (Abdomen): Mild distention, hypoactive bowel sounds, mild tenderness across lower abdominal areas. Skin: no rashes, warm and dry no jaundice Psychiatric: A+Ox3, euthymic affect Lymphatic: no lymphedema Results & Data ([facility]) Vital Signs (Past 12 Hours) Vital Signs Temp Pulse Resp BP Pulse Ox O2 Del Method 01/30/22 08:00 68 21 94 01/30/22 08:00 143/90 H 01/30/22 07:30 59 L 22 94 01/30/22 07:00 98 H 17 95 01/30/22 07:00 141/90 H 01/30/22 06:30 57 L 18 94 01/30/22 06:00 57 L 20 153/86 H 95 Room Air 01/30/22 04:00 65 15 131/92 01/30/22 02:15 61 20 156/83 H 96 Room Air 01/30/22 01:00 54 L 18 163/87 H 97 Room Air 01/30/22 00:59 55 L 18 97 Room Air 01/29/22 22:25 36.4 C L 56 L 20 160/83 H 95 Room Air
[2022-01-30] MEDS: metroNIDAZOLE 500 MG/100 ML BAG IV SCH ×2 (12:54→19:43)
[2022-01-30 12:56] LABS: Hematocrit (blood only) 45.1 % (40.1-51.0)
--- NOTE | 2022-01-30 16:35 | Hospitalist Progress Note ---
Date of Service January 30, 2022 Assessment & Plan (1) Lower GI bleeding: (2) Colitis: Plan 71-year-old male with PMH of HTN, HLD, CVA, recurrent DVT on Eliquis, sigmoid diverticulosis, episodic thrombocytopenia, past tobacco abuse presented to our hospital 01/29 with complaint of achy abdominal pain associated with watery diarrhea later noted to be bloody. He is being managed for the following: Likely transverse colitis Lower GI bleed Patient presenting with watery diarrhea later noted to be bloody [see above] Admitting CTAP: Nonspecific colitis of mid to distal transverse colon. Stool PCR positive for FOBT, negative for C. difficile toxin, positive for CD15. Patient had so far 3 bloody bowel movements. Red blood, not associated with pain. GI evaluated, clear liquid diet, agrees with antibiotic, outpatient colonoscopy in 4 to 6 weeks time. Patient hemodynamically stable. Will continue with antibiotic 01/29, will advance diet as tolerated, follow-up hemoglobin to ensure stability, possible discharge in next 1 to 2 days with symptom improvement and hemoglobin stability. History of recurrent DVT: On Eliquis at home, currently on hold. Prediabetes: A1c of 6.4, recommend lifestyle modification, follow-up with PCP as an outpatient in 3 months for further evaluation. Other chronic medical conditions: HTN, HLD, history of CVA, episodic thrombocytopenia ---> continue with/resume home meds as and when appropriate. DVT prophylaxis. SCDs while Eliquis on hold Full code Admission and Anticipated Discharge Date Admission Date: January 30, 2022 Subjective Patient seen and examined at bedside for lower GI bleed and likely colitis. Patient was lying in bed, on room air, NAD, reports having 3 bloody bowel movements since yesterday, one was today morning, I saw red blood in the machuca, patient denies pain during bowel movement, is on a clear liquid diet, denies any acute new events overnight, reports some low belly pain constant, denies fever/headache/dizziness/chest pain/palpitations/other review of symptoms. Physical Exam Physical Exam: GENERAL: Alert and oriented x3. NAD, on RA. HEENT: No pallor, no icterus. Pupils equal, round and reactive to light. Oral mucosa moist. NECK: No JVD, no neck masses. HEART: S1 and S2 heard. Regular rate and rhythm. No murmur, no gallop. RESPIRATORY SYSTEM: Normal AP diameter. No accessory muscle use. No wheezing, no crackles. ABDOMEN: Soft, bowel sounds present, vague lower to central belly tenderness x mild, no distention. CENTRAL NERVOUS SYSTEM: No facial droop. Speech is clear. Obeys simple commands. Moves extremities. EXTREMITIES: No edema, no erythema seen. Results & Data Results & Data ([facility]) Vital Signs (Past 12 Hours) Vital Signs Temp Pulse Pulse Resp BP BP Pulse Ox 01/30/22 15:43 36.9 C 65 16 171/78 H 97 01/30/22 14:30 36.8 C 68 18 165/76 H 95 01/30/22 14:00 60 14 96 01/30/22 13:30 58 L 14 96 01/30/22 13:00 62 13 94 01/30/22 13:00 131/82 01/30/22 12:30 70 18 95 01/30/22 12:00 77 18 90 01/30/22 12:00 142/95 H 01/30/22 11:30 62 21 95 01/30/22 11:00 60 14 93 01/30/22 11:00 124/81 01/30/22 10:30 59 L 18 93 01/30/22 10:00 64 15 93 01/30/22 10:00 134/90 01/30/22 09:36 90 18 94 01/30/22 09:00 66 15 93 01/30/22 09:00 130/78 01/30/22 08:30 95 H 18 93 01/30/22 08:00 68 21 94 01/30/22 08:00 143/90 H 01/30/22 07:30 59 L 22 94 01/30/22 07:00 98 H 17 95 01/30/22 07:00 141/90 H 01/30/22 06:30 57 L 18 94 01/30/22 06:00 57 L 20 153/86 H 95 O2 Del Method 01/30/22 15:43 Room Air 01/30/22 14:30 Room Air 01/30/22 14:00 01/30/22 13:30 01/30/22 13:00 01/30/22 13:00 01/30/22 12:30 01/30/22 12:00 01/30/22 12:00 01/30/22 11:30 01/30/22 11:00 01/30/22 11:00 01/30/22 10:30 01/30/22 10:00 01/30/22 10:00 01/30/22 09:36 01/30/22 09:00 01/30/22 09:00 01/30/22 08:30 01/30/22 08:00 01/30/22 08:00 01/30/22 07:30 01/30/22 07:00 01/30/22 07:00 01/30/22 06:30 01/30/22 06:00 Room Air
[2022-01-30 18:10] LABS: Hematocrit (blood only) 50.6 % (40.1-51.0); Hemoglobin 16.2 g/dl (14.0-18.0)
[2022-01-30] MEDS: TAMSULOSIN HCL 0.4 MG CAP PO SCH (19:43)
[2022-01-31] MEDS: metroNIDAZOLE 500 MG/100 ML BAG IV SCH ×3 (03:09→20:39)
[2022-01-31] MEDS: cefTRIAXone SODIUM 2,000 MG in DEXTROSE 5% 50 ML IV SCH (04:10)
[2022-01-31 07:20] LABS: Hematocrit (blood only) 42.6 % (40.1-51.0); Hemoglobin 13.8 g/dl (14.0-18.0); Mean Corpuscular Hemoglobin 30.3 pg (25.0-34.0); Mean Corpuscular Hgb Conc 32.4 g/dL (32.0-36.0); Mean Corpuscular Volume 93.6 fL (80.0-100.0); RDW Coefficient of Variation 13.4 % (11.5-14.5); RDW Standard Deviation 45.8 fL (36.4-46.3); Red Blood Count 4.55 M/uL (4.63-6.08); White Blood Count 7.56 K/ul (4.8-10.8)
[2022-01-31 07:29] LABS: Mean Platelet Volume 13.2 fL (9.4-12.4); Platelet Count 101 K/uL (130-400)
[2022-01-31 07:42] LABS: BUN Creatinine Ratio 10.6 (10-20); Calcium 8.2 mg/dl (8.5-10.1); Creatinine Clr Calc Pharmacy 66.5 ml/min; Est GFR (African American) 92.9 ml/min; Est GFR (Non-African American) 80.1 ml/min; Magnesium 1.8 mg/dl (1.7-2.4)
[2022-01-31] MEDS ORDERED: DICYCLOMINE HCL 10 MG CAP PO PRN (09:02)
--- NOTE | 2022-01-31 09:02 | Gastroenterology Progress Note ---
Date of Service January 31, 2022 Assessment & Plan (1) Lower GI bleeding: Plan: Patient is a 71 years old male seen for bloody diarrhea which started last evening. Denies risk factors including prior antibiotic use, sick contact, contact with livestock's, well water. CT abdomen pelvis showed signs of wall thickening in the transverse colon area, colonic diverticulosis without diverticulitis. Stool studies showed C. difficile gene positive but toxin negative. DDX: infectious/ischemic colitis, diverticular bleeding, less likely IBD Diarrhea slowing down, less bloody output. Blood ct dropped but no indication for blood transfusion - CL diet; advance as tolerated - IVF support - Antibx to include enteric coverage - Follow for evidence of ileus - Symptomatic management otherwise - Recommend outpt Colonoscopy in 4 to 6 week's time Admission and Anticipated Discharge Date Admission Date: January 30, 2022 Supervising Physician Co-Signing Physician Notes Attg add: I interviewed and examined pt. Pt without any further rectal bleeding. Mild lower abd pain. Suspect ischemic colitis, ddx = infectious coli tis. Can adv to cl liquids, then diet as tolerated to low residue. Empici 5-7 d course of abx. Further recs as above. Subjective Pt reports no BM overnight or this AM. Last BM yesterday evening, and less bloody. Still having some lower abd pain. No n/v. Review of Systems Review of Systems: All systems reviewed & are unremarkable except as noted in HPI & below Physical Exam Constitutional: WD/WN, vitals as above well groomed, cooperative and comfortable Eyes: PERRL, conjunctivae normal, anicteric sclerae ENMT: external ear and nose normal, oropharynx normal Respiratory: normal respiratory effort, lungs clear to auscultation Cardiovascular: RRR, no murmur, no edema Gastrointestinal (Abdomen): Soft, TTP lower quadrants, BS present Skin: no rashes, warm and dry no jaundice Psychiatric: A+Ox3, euthymic affect Lymphatic: no lymphedema Results & Data ([facility]) Vital Signs (Past 12 Hours) Vital Signs Temp Pulse Resp BP BP Pulse Ox O2 Del Method 01/31/22 07:49 36.6 C 52 L 16 111/71 91 Room Air 01/30/22 23:37 36.9 C 75 18 136/80 92 Room Air
[2022-01-31] MEDS: LANSOPRAZOLE 30 MG SOLTAB PO SCH (09:20)
[2022-01-31] MEDS: lisinopril 10 MG TAB PO SCH (09:21)
[2022-01-31] MEDS: SPIRONOLACTONE 12.5 MG TAB PO SCH (09:21)
[2022-01-31] MEDS: FINASTERIDE 5 MG TAB PO SCH (09:21)
[2022-01-31] MEDS: GABAPENTIN 300 MG CAP PO SCH ×2 (09:21→20:39)
[2022-01-31] MEDS: ROSUVASTATIN CALCIUM 20 MG TAB PO SCH (09:21)
[2022-01-31 15:52] LABS: Hematocrit (blood only) 44.7 % (40.1-51.0)
--- NOTE | 2022-01-31 17:26 | Hospitalist Progress Note ---
Date of Service January 31, 2022 Assessment & Plan (1) Lower GI bleeding: (2) Colitis: Plan 71-year-old male with PMH of HTN, HLD, CVA, recurrent DVT on Eliquis, sigmoid diverticulosis, episodic thrombocytopenia, past tobacco abuse presented to our hospital 01/29 with complaint of achy abdominal pain associated with watery diarrhea later noted to be bloody. He is being managed for the following: Likely transverse colitis Lower GI bleed Patient presenting with watery diarrhea later noted to be bloody [see above] Admitting CTAP: Nonspecific colitis of mid to distal transverse colon. Stool PCR positive for FOBT, negative for C. difficile toxin, positive for CDiff gene. Patient had no bloody BM since yesterday evening. GI evaluated, clear liquid diet --> ADAT, agrees with antibiotic, outpatient colonoscopy in 4 to 6 weeks time. Patient hemodynamically stable. Will continue with antibiotic 01/29, will advance diet as tolerated, follow-up hemoglobin to ensure stability, possible discharge in next 1 day with symptom improvement and hemoglobin stability. History of recurrent DVT: On Eliquis at home, currently on hold. Prediabetes: A1c of 6.4, recommend lifestyle modification, follow-up with PCP as an outpatient in 3 months for further evaluation. Other chronic medical conditions: HTN, HLD, history of CVA, episodic thrombocytopenia ---> continue with/resume home meds as and when appropriate. DVT prophylaxis. SCDs while Eliquis on hold Full code Admission and Anticipated Discharge Date Admission Date: January 30, 2022 Subjective Patient seen and examined at bedside for lower GI bleed and likely colitis. Patient was lying in bed, on room air, NAD, reports no bloody BM since yesterday evening, is on a clear liquid diet, advance diet as tolerated, denies any acute new events overnight, reports some low belly pain which is improving, denies fever/headache/dizziness/chest pain/palpitations/other review of symptoms. Physical Exam Physical Exam: GENERAL: Alert and oriented x3. NAD, on RA. HEENT: No pallor, no icterus. Pupils equal, round and reactive to light. Oral mucosa moist. NECK: No JVD, no neck masses. HEART: S1 and S2 heard. Regular rate and rhythm. No murmur, no gallop. RESPIRATORY SYSTEM: Normal AP diameter. No accessory muscle use. No wheezing, no crackles. ABDOMEN: Soft, bowel sounds present, non tender, no distention. CENTRAL NERVOUS SYSTEM: No facial droop. Speech is clear. Obeys simple commands. Moves extremities. EXTREMITIES: No edema, no erythema seen. Results & Data Results & Data ([facility]) Vital Signs (Past 12 Hours) Vital Signs Temp Pulse Resp BP Pulse Ox O2 Del Method 01/31/22 15:26 36.7 C 51 L 16 145/83 H 95 Room Air 01/31/22 07:49 36.6 C 52 L 16 111/71 91 Room Air
[2022-01-31] MEDS: TAMSULOSIN HCL 0.4 MG CAP PO SCH (20:40)
[2022-02-01] MEDS: metroNIDAZOLE 500 MG/100 ML BAG IV SCH ×2 (03:28→13:20)
[2022-02-01] MEDS: cefTRIAXone SODIUM 2,000 MG in DEXTROSE 5% 50 ML IV SCH (04:44)
[2022-02-01 08:52] LABS: Hematocrit (blood only) 43.3 % (40.1-51.0); Mean Corpuscular Hgb Conc 32.3 g/dL (32.0-36.0); Mean Corpuscular Volume 92.7 fL (80.0-100.0); Mean Platelet Volume 12.8 fL (9.4-12.4); Platelet Count 98 K/uL (130-400); Platelet Estimate Decreased (Normal); RDW Coefficient of Variation 13.3 % (11.5-14.5); RDW Standard Deviation 44.9 fL (36.4-46.3); Red Blood Count 4.67 M/uL (4.63-6.08); White Blood Count 7.11 K/ul (4.8-10.8)
[2022-02-01] MEDS: FINASTERIDE 5 MG TAB PO SCH (09:26)
[2022-02-01] MEDS: GABAPENTIN 300 MG CAP PO SCH (09:26)
[2022-02-01] MEDS: SPIRONOLACTONE 12.5 MG TAB PO SCH (09:27)
[2022-02-01] MEDS: lisinopril 10 MG TAB PO SCH (09:27)
[2022-02-01] MEDS: LANSOPRAZOLE 30 MG SOLTAB PO SCH (09:27)
[2022-02-01] MEDS: ROSUVASTATIN CALCIUM 20 MG TAB PO SCH (09:27)
--- NOTE | 2022-02-01 12:21 | Discharge Summary ---
Date of Service February 01, 2022 Admission HPI Per Admitting Provider History obtained from patient and records. Medical history significant for hypertension, hyperlipidemia, CVA, recurrent DVT on Eliquis, sigmoid diverticulosis, episodic thrombocytopenia, past tobacco abuse. Last confinement April 2021 for respiratory failure secondary to severe COVID-19 pneumonia. Yesterday, patient noted achy abdominal pain associated with watery diarrhea later noted to be bloody. No fever, no chills, no chest pain, no shortness of breath. No prior episodes. No recent antibiotic Rx/sick contacts/out-of-town travel. Patient consulted ER for evaluation. 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 Admission Exam Per Admitting Provider GENERAL: Comfortable, pleasant, no respiratory distress SKIN: Normal color, warm HEENT: [place] palpebral conjunctivae, no ptosis, dry buccal mucosa NECK : Supple, no tenderness CHEST : CTA, no tenderness HEART : Bradycardic, no obvious murmurs ABDOMEN: Some distention, central abdominal tenderness EXTREMITIES : No LE swelling/tenderness, no other conspicuous deformities noted NEUROLOGIC : Coherent, no facial asymmetry, no other gross focality Principal Diagnosis Likely transverse colitis Lower GI bleed History of recurrent DVT Discharge Exam GENERAL: Alert and oriented x3. NAD, on RA. HEENT: No pallor, no icterus. Pupils equal, round and reactive to light. Oral mucosa moist. NECK: No JVD, no neck masses. HEART: S1 and S2 heard. Regular rate and rhythm. No murmur, no gallop. RESPIRATORY SYSTEM: Normal AP diameter. No accessory muscle use. No wheezing, no crackles. ABDOMEN: Soft, bowel sounds present, non tender, no distention. CENTRAL NERVOUS SYSTEM: No facial droop. Speech is clear. Obeys simple commands. Moves extremities. EXTREMITIES: No edema, no erythema seen. Discharge Data Allergies Allergy/AdvReac Type Severity Reaction Status Date / Time doxycycline Allergy Intermediate HIVES, Verified 01/30/22 00:44 DIZZINESS, DIARRHEA Consultations 01/30/22 01:23 ED Decision to Admit Stat 01/30/22 03:39 Consult Gastroenterology Routine Ordered Studies 01/30/22 01:28 CT Abd and Pelvis [CT abd pelvis IV con only] Urgent Hospital Course (1) Lower GI bleeding: (2) Colitis: Plan 71-year-old male with PMH of HTN, HLD, CVA, recurrent DVT on Eliquis, sigmoid diverticulosis, episodic thrombocytopenia, past tobacco abuse presented to our hospital 01/29 with complaint of achy abdominal pain associated with watery diarrhea later noted to be bloody. He was managed for the following: Likely transverse colitis Lower GI bleed Patient presenting with watery diarrhea later noted to be bloody [see above] Admitting CTAP: Nonspecific colitis of mid to distal transverse colon. Stool PCR positive for FOBT, negative for C. difficile toxin, positive for CDiff gene. Patient had no bloody BM since last two days, had normal BM yesterday evening. Pt hemodynamically stable. Pt tolerating diet well. Hemoglobin stable. Patient advised to take laxatives adequately so that he does not have to strain during defecation. Patient being discharged on p.o. antibiotics with probiotics. Has been getting Rocephin and metronidazole since 01/29. Patient to follow-up with GI doctor as an outpatient in a month time for colonoscopy evaluation in 4 to 6 weeks time. History of recurrent DVT: On Eliquis at home, currently on hold. Patient to resume Eliquis in 2 to 3 days time upon discharge if with no bloody bowel movements. Prediabetes: A1c of 6.4, recommend lifestyle modification, follow-up with PCP as an outpatient in 3 months for further evaluation. Other chronic medical conditions: HTN, HLD, history of CVA, episodic thrombocytopenia ---> continue with/resume home meds as and when appropriate. DVT prophylaxis. SCDs while Eliquis on hold Full code Follow-up with your primary care physician within a week time. You are being discharged on antibiotics, complete your antibiotic course as prescribed. Probiotics added. Start your antibiotics from today evening. Use laxatives/stool softener to avoid straining during defecation. Start taking your eliquis 2-3 days later upon discharge if you continue to have no bloody bowel movement. Your A1c was 6.4, follow-up with your PCP in 3 months time to get a new A1c level and further management on your prediabetes. Continue with lifestyle modification in the interim. Follow-up with GI doctor in 1 month time for evaluation with colonoscopy in 4 to 6 weeks. Get your blood work CBC and CMP done in a week time upon discharge and have the results forwarded to your primary care physician. Take your medications as prescribed. Total Time Total Time Spent Total Time Spent (In Minutes): 35 Discharge Plan Discharge Items Patient Disposition: Home - Self-Care Reason For Visit: COLITIS, LGIB Discharge Diagnosis: Likely transverse colitis Lower GI bleed History of recurrent DVT Activity: Resume your previous activity Non-emergency contact: Primary Care Provider Call non-emergency contact if: you have any medication questions, your symptoms worsen, your pain is not controlled and your temperature is above 101 Follow-up/Referrals: Hilda Orosco MD [Primary Care Provider] - Diet: Low Fiber Addtl Attending Provider Instructions: Follow-up with your primary care physician within a week time. You are being discharged on antibiotics, complete your antibiotic course as prescribed. Probiotics added. Start your antibiotics from today evening. Use laxatives/stool softener to avoid straining during defecation. Start taking your eliquis 2-3 days later upon discharge if you continue to have no bloody bowel movement. Your A1c was 6.4, follow-up with your PCP in 3 months time to get a new A1c level and further management on your prediabetes. Continue with lifestyle modification in the interim. Follow-up with GI doctor in 1 month time for evaluation with colonoscopy in 4 to 6 weeks. Get your blood work CBC and CMP done in a week time upon discharge and have the results forwarded to your primary care physician. Take your medications as prescribed. Pending Studies at Discharge: No Stand-Alone Forms: My [employer], Smoking Cessation Medications and DC Order Prescriptions: New dicyclomine 10 mg Capsule 10 mg PO BID PRN (Reason: abdominal pain) 10 Days Qty: 20 0RF amoxicillin-pot clavulanate 875-125 mg tablet 1 tab PO BID 10 Days Qty: 20 0RF Probiotic 3 billion cell capsule 3,000 mmu cells PO DAILY 10 Days Qty: 10 0RF Rx Instructions: administer with a meal senna 8.6 mg capsule 8.6 mg PO HS Qty: 30 0RF Continued spironolactone 25 mg tablet 12.5 mg PO DAILY acetaminophen [Tylenol] 325 mg Tablet 650 mg PO DIRECTED PRN (Reason: PAIN/FEVER) finasteride 5 mg Tablet 5 mg PO DAILY tamsulosin [Flomax] 0.4 mg Capsule 0.8 mg PO HS lisinopril [Zestril] 10 mg Tablet 10 mg PO QAM docusate sodium [Colace] 100 mg Capsule 100 mg PO AMPM gabapentin [Neurontin] 300 mg Capsule 300 mg PO BID Eliquis 5 mg Tablet 2.5 mg PO BID Rx Instructions: 1/2 tablet dose rosuvastatin 40 mg Tablet 20 mg PO DAILY lansoprazole 30 mg Tablet,Disintegrat, Delay Rel 30 mg PO DAILY Discharge Orders: Discharge Order (Routine); Ordered 02/01/22 Ordered By: Shameka Banda/[place] Patient Handouts: Prediabetes Admission Data Admit Date/Time: 01/30/22 03:20 Attending Provider: Shameka Aguirre Admit Provider: Sebastian Desouza Primary Care Provider: Hilda Orosco Other Providers: Sebastian Desouza ; Edi Farias ; Sondra Zhou ; Madalyn Tyler ; Mirela Mendez ; Gonzalo Black ; Ferny Walters ; Toño Lopez ; Parag Beavers ; Anisha Colby ; Katelyn Kendall ; Aniya Greenberg ; Socorro Araujo ; Lane Goodman
[2022-02-01] MEDS ORDERED: AMOXICILLIN/CLAVULANATE 875MG HOME PACK PO ONE (16:42)
== END 2022-02-01 17:08 | disposition home or self-care (01) | DRG 392 ==
LOC: ED 22:19 → 3E 01-30 03:00 → EDINP 01-30 03:20 → 3E 01-30 14:22